=== PATIENT | male | born 1960 | race Caucasian/White ===

== ENCOUNTER → 2018-06-30 00:42 | Outpatient (CLI) | payer BC, SELFPAY ==
[2018-06-30 10:35] LABS: Abs Immature Grans 0.02 k/cumm (0.0-0.09); Absolute Basophil Count 0.02 k/cumm (0.0-0.2); Absolute Eosinophil Count 0.08 k/cumm (0.0-0.7); Absolute Lymphocyte Count 1.47 k/cumm (1.2-3.4); Absolute Monocyte Count 0.74 k/cumm (0.11-0.7); Absolute Neutrophil Count 3.82 k/cumm (1.2-6.7); Basophils % 0.3; Eosinophils % 1.3; HCT 46.7 % (40.0-50.0); Immature Grans % 0.3; Lymphocytes % 23.9; Mean Corp. HGB Concentration 34.3 g/dL (32.0-36.0); Mean Corpuscular Hemoglobin 29.6 pg (27.0-33.0); Mean Corpuscular Volume 86.5 fL (80-95); Mean Platelet Volume 10.8 fL (8.0-11.0); Neutrophils % 62.2; Platelet Count 159 x1000/uL (130-400); White Blood Cell Count 6.15 k/cumm (4.4-10.8)
[2018-06-30 10:54] LABS: Bilirubin Negative (Negative); Blood Negative (Negative); Clarity Clear; Glucose Negative (Negative); Ketones Negative (Negative); Leukocyte Esterase Negative (Negative); Nitrite Negative (Negative); Specific Gravity 1.025 (1.005-1.025); Urobilinogen 0.2 EU/dL (Up TO 0.2); pH 5.5 (5-8)
[2018-06-30 10:57] LABS: ALT 33 U/L (12-78); Albumin 4.1 g/dL (3.4-5.0); Alkaline Phosphatase 75 U/L (46-116); Anion Gap 13.2 mmol/L (3-11); BUN 19 mg/dL (7-18); Bilirubin, Total 0.5 mg/dL (0.2-1.0); CO2 22.8 mmol/L (21.0-32.0); CREATININE 1.35 mg/dL (0.70-1.30); Calcium 8.5 mg/dL (8.5-10.1); Chloride 106 mmol/L (98-107); Estimated GFR 53.91 (mL/min/1.73m2); Glucose 101 mg/dL (70-100); Potassium 3.8 mmol/L (3.5-5.1); Sodium 142 mmol/L (136-145); Total Protein 7.5 g/dL (6.4-8.2)
[2018-06-30 11:44] LABS: AST < 5 U/L (15-37)
[2018-07-03 10:48] LABS: PSA, Screening 1.4 ng/ml (0-4.5)
== END ==
PROVIDERS: PCP Family Medicine; Visit Provider Family Medicine
DX: M54.5 Low back pain (principal); G89.29 Other chronic pain; Z12.5 Encounter for screening for malignant neoplasm of prostate
CPT/HCPCS: 80053; 84153; 81003; 85025

== ENCOUNTER 2018-09-28 07:33 | Day surgery (SDC) | payer BC, SELFPAY ==
[2018-09-28 07:40] VITALS: BP 130/80; PULSE 78; RESP 16; TEMP 37; O2SAT 95
[2018-09-28] MEDS: Lactated Ringers 1,000 ML 30 ML IV (08:12)
--- NOTE | 2018-09-28 09:07 | W.COLOREPORT ---
Date of service: 09/28/18 Time of Service: 09:07 Colonoscopy Report Date of procedure: 09/28/18 Pre-op diagnosis general: Personal history of colon polyps Post-op diagnosis procedure note: other Procedure: Colonoscopy to the cecum with biopsy by cold forceps Surgeon: Sarath Oseguera Anesthesia proc note operative: MAC (Diane Lloyd CRNA; ASA 2 Mallampati class II) Estimated blood loss (mL): 1 Pathology: other (Rectal polyp) Complications: None Disposition: same day Indications: 58-year-old male presenting for colorectal cancer screening by colonoscopy. He has a personal history of colon polyps with a tubular adenoma found in 2008, and a family history of colorectal cancer with his father recently diagnosed with colon cancer. The colonoscopy procedure is been reviewed with him, and the risks of the procedure have been discussed with him. All his questions been answered to his satisfaction. Consent has been obtained to proceed with colonoscopy. Prep: Miralax/Dulcolax (Prep quality excellent) Procedure Start Time: 09:11 Procedure End Time: :28 Retraction Time: 12 min Findings: In examining the colon from cecum to rectum, 1 polyp was found in the rectum and removed by cold biopsy in the colon.. No other abnormalities were noted of the colon or rectum. Procedure Description: The patient was seen in the day surgery waiting area. His identification was confirmed, and procedure check. He was then brought to the procedure room. Monitoring for telemetry, blood pressure, oxygen saturation, and end tidal CO2 monitoring were applied. An appropriate time out was performed to confirm, identification, allergies, medication, procedure, was performed. Sedation was titrated for affect by the CUSHION SPRING ASSEMBLER; Once adequate sedation was achieved, I performed a inspection of the external perineum, and a digitial rectal examination. No significant external abnormalities were noted. On digital rectal examination, there was no blood, no masses, good rectal tone, and a normal prostate. I advanced the colonoscope from the anus to the cecum under direct visualization. The cecum was identified by the ileal-cecal valve, and the appendiceal orifice. The scope was then withdrawn in circumferential manner from the cecum to the rectum. No abnormalites were noted in the colon. The scope was then withdrawn into the rectum, and retroflexed. One polyp was identified in the rectum, and subsequently removed by cold biopsy forceps is approximately less than 1 cm in greatest diameter. No abnormalities were noted of the anorectal junction. The scope was then withdrawn, terminating the procedure. There were no complications during the procedure, and the patient tolerated the procedure well. He was returned to the day surgery recovery area in good condition. Plan: We will await pathology before making further recommendations.
--- NOTE | 2018-09-28 09:24 | BOWEL_PTH ---
PATIENT: Hitesh Iyer LOC: [facility] U#:[id number] AGE/SX: 58/M ROOM: RE09/28/[address]: Sarath Oseguera DO : 1960 BED: DIS: 09/28/2018 SPEC #: [id number] RECD: 09/28/18 12:20 STATUS: YAKOV RE #: [id number] PILI: 09/28/18 09:[address]: Sarath Oseguera DEPT: Surgical Specimen RECD BY: Mary Alexander ENTERED: 09/28/18 12:21 SP TYPE: Bowel OTHR DR: Forrest Hinson MD Tissues: 1 - BIOPSY BOWEL Procedures: GROSS AND MICRO LEVEL 4 Comments: [id number]
--- NOTE | 2018-09-28 09:44 | PDOC.DSDIS_ITS ---
Discharge Plan Disposition Patient Disposition: HOME Condition: Good Discharge Details Reason For Visit: Colorectal cancer screening Attending Provider: Sarath Oseguera Primary Care Provider: Forrest Hinson Discharge Instructions Instructions: Colonoscopy (GEN) Activity:: Activity as Tolerated Diet:: As Tolerated Discharge Orders Discharge Orders: Discharge Order (Routine); Ordered 09/28/18 Ordered By: Sarath Oseguera DS: Diagnosis Discharge Diagnosis (1) Family history of colon cancer in father: Status: Chronic Asessment and Plan: Colonoscopy performed Colonoscopy Report Date of procedure: 09/28/18 Pre-op diagnosis general: Personal history of colon polyps Post-op diagnosis procedure note: other Procedure: Colonoscopy to the cecum with biopsy by cold forceps Surgeon: Sarath Oseguera Anesthesia proc note operative: MAC (Diane Lloyd CRNA; ASA 2 Mallampati class II) Estimated blood loss (mL): 1 Pathology: other (Rectal polyp) Complications: None Disposition: same day Indications: 58-year-old male presenting for colorectal cancer screening by colonoscopy. He has a personal history of colon polyps with a tubular adenoma found in 2008, and a family history of colorectal cancer with his father recently diagnosed with colon cancer. The colonoscopy procedure is been reviewed with him, and the risks of the procedure have been discussed with him. All his questions been answered to his satisfaction. Consent has been obtained to proceed with colonoscopy. Prep: Miralax/Dulcolax (Prep quality excellent) Procedure Start Time: 09:11 Procedure End Time: 09:28 Retraction Time: 12 min Findings: In examining the colon from cecum to rectum, 1 polyp was found in the rectum and removed by cold biopsy in the colon.. No other abnormalities were noted of the colon or rectum. Procedure Description: The patient was seen in the day surgery waiting area. His identification was confirmed, and procedure check. He was then brought to the procedure room. Monitoring for telemetry, blood pressure, oxygen saturation, and end tidal CO2 monitoring were applied. An appropriate time out was performed to confirm, identification, allergies, medication, procedure, was performed. Sedation was titrated for affect by the BRAND ACTIVATION MANAGER; Once adequate sedation was achieved, I performed a inspection of the external perineum, and a digitial rectal examination. No significant external abnormalities were noted. On digital rectal examination, there was no blood, no masses, good rectal tone, and a normal prostate. I advanced the colonoscope from the anus to the cecum under direct visualization. The cecum was identified by the ileal-cecal valve, and the appendiceal orifice. The scope was then withdrawn in circumferential manner from the cecum to the rectum. No abnormalites were noted in the colon. The scope was then withdrawn into the rectum, and retroflexed. One polyp was identified in the rectum, and subsequently removed by cold biopsy forceps is approximately less than 1 cm in greatest diameter. No abnormalities were noted of the anorectal junction. The scope was then withdrawn, terminating the procedure. There were no complications during the procedure, and the patient tolerated the procedure well. He was returned to the day surgery recovery area in good condition. Plan: We will await pathology before making further recommendations. (2) Personal history of colonic polyps: Status: Acute Asessment and Plan: Colonoscopy performed see above
[2018-09-28 10:05] VITALS: BP 113/68; PULSE 62; RESP 16; TEMP 36.4; O2SAT 98
== END 2018-09-28 11:12 | disposition home or self-care (01) ==
PROVIDERS: PCP Family Medicine; Visit Provider Surgery
PROC: 0DJD8ZZ Inspection of Lower Intestinal Tract, Via Natural or Artificial Opening Endoscopic (ICD-10-PCS; CPT 45378; principal; 2018-09-28 09:00)
DX: Z12.11 Encounter for screening for malignant neoplasm of colon (principal); Z86.010 Personal history of colon polyps; Z80.0 Family history of malignant neoplasm of digestive organs; G47.33 Obstructive sleep apnea (adult) (pediatric); K21.9 Gastro-esophageal reflux disease without esophagitis; D12.8 Benign neoplasm of rectum
CPT/HCPCS: 45380; 88305

== ENCOUNTER 2019-09-28 16:58 | Emergency (ER) | payer OTHER, SELFPAY ==
[2019-09-28] VITALS (9 sets, daily range): BP systolic 130–156; BP diastolic 64–83; PULSE 72–86; RESP 16–22; TEMP 36.7; O2SAT 94–98
--- NOTE | 2019-09-28 17:15 | ED.GENADUL_ITS ---
Discharge Plan Disposition Patient Disposition: HOME Condition: Fair Discharge Details Chief Complaint: GenMedical Clinical Impression: Bilateral edema of lower extremity Primary Care Provider: Forrest Hinson ED Provider: Carin Vargas Home Meds and New Rx's Prescriptions: No Action No Known Home Meds RF: 0 Discharge Instructions Instructions: Leg Edema (ED), DASH Eating Plan (ED) Additional Instructions: At this time, your labs are reassuring. Please encourage hydration with water. Dietary changes as discussed to help reduce salt intake. Attached is dietary s uggestions. Please follow-up with primary care for reevaluation at the end of the week for reevaluation. If you develop chest pain, difficulty breathing, leg pain or the new/worsening symptoms please seek care urgently once again. Elevation and compression hose will help with the swelling in your lower extremities. Referrals: Forrest Hinson [Primary Care Provider] - Discharge Data Discharge Date/Time-TO BE ENTERED AT DEPARTURE: 09/28/19 19:30 Medical Decision Making Patient is a 59 year old male presenting today with c/c of bilateral lower extremity edema. Has had this wax and wane over the past 3 weeks. 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 Has poor diet per his and his families report. Endorses large amount of sodium intake. States that for the past 3 weeks he has had edema at night in BLE with no pain. No calf pain. No fevers/chills. Denies SOB. Symptoms are quite vague. Story seems to change in treatment. However, the history of the lower extremity edema, which is the patient's primary complaint, remains consistent. States that he has applies pressure to the left anterior chest wall. However, he states that he has had this pain for several years. No pain with exertion. No pain with not applying pressure to this area. Also had one episode of lightheadedness earlier today when he had been sitting and watching TV for incident. A time instead of quickly. States that the symptoms completely resolved as soon as he sat down. On exam, he appears nontoxic. He is resting comfortably. Normal respiratory and cardiac exam. 2+ pulses. He does have some mild edema in his lower extremities. This is nonpitting. No posterior calf pain, negative Homans sign. No pain to palpation elsewhere about the legs. No skin changes. With the patient is a complaints that seem to wax and wane, I feel that EKG, labs and chest x-ray are appropriate. EKG was reviewed by Dr. Castro. Patient's only normal sinus rhythm with a rate is 79 with no acute ischemic changes noted. Chest x-ray reviewed by radiologist: FINDINGS: Lungs: No consolidation. Pleural space: No pleural effusion. No pneumothorax. Heart/Mediastinum: No cardiomegaly. Bones/joints: No acute fracture. IMPRESSION: No acute cardiopulmonary pathology. Labs reveal normal CBC, d-dimer within normal limits, electrolytes are normal. Creatinine is slightly elevated 1.31, he has been elevated like this historically. TSH is slightly elevated at 5.84. Free T4 is 0.76. As the symptoms have been going on for the past 3 weeks, do not feel that repeat troponin is necessary at this time. His chest pain is only with palpation and story is not suggestive of ACS. However, talking more with the family and the patient, since that he has made lifestyle changes in the past year that may be contributing to his lower extremity edema and we discussed dietary changes. Adv ise close follow-up with primary care. He was given strict return precautions. All his questions and concerns were addressed and he is in agreement with this plan. HPI General Mode of arrival: ambulatory . Date/Time Provider Initiated Documentation: 09/28/19 17:04 . Limitations to Documentation: no limitations . Information obtained by: patient and RN notes reviewed . HPI Narrative: Patient is 59-year-old male presents today with fairly vague complaints. Initially, he was endorsing bilateral lower extremity edema that is been going on for the past 3 weeks. States that he noticed the swelling is increased at night and improves after having his legs elevated. Is also endorsing intermittent shortness of breath but is unable to correlate this with anything in particular. He is unclear if this associates with food. Does not believe that associates with exertion. Also endorses some chest discomfort but feels that this is more with palpation. Again, patient is unclear as to what may cause exacerbating symptoms. No cough. No fevers or chills. Denies any abdominal pain. No nausea or vomiting. States he is gained approximately 25 pounds in the past year and associates this with being more sedentary. Patient's history of GABRIELA, obesity, GERD. No history of colon cancer, multiple myeloma. Maternal grandfather had [place]. The patient is back. No change in urinary or bowel habits. No recent travel. Is not currently endorsing symptoms. States he came in today because slightly dizzy after he stood up from watching TV afternoon. Goes on to describe his dizziness as lightheadedness which resolved after sitting back down. Related Data Home Medications Medication Instructions Recorded Confirmed Unknown [No Known Home Meds] 09/28/19 09/28/19 Allergies Allergy/AdvReac Type Severity Reaction Status Date / Time bupropion Allergy Anaphylaxsi Verified 09/28/19 17:07 s General Stated Complaint: GenMedical CONOR: 3 Review of Systems Constitutional Constitutional: Reports as per HPI, Denies chills, Denies fever(s), Denies headache(s), Denies lethargy and Denies poor appetite Eyes Eyes: Denies change in vision ENT Ears, Nose, Mouth, and Throat: Denies dizziness and Denies headache(s) Cardiovascular Cardiovascular: Reports as per HPI, Reports chest pain (pain only with palpation), Denies chest pain at rest, Denies chest pain with activity, Denies irregular heart rhythm, Reports leg edema, Reports lightheadedness (one episode of lightheadedness after sitting for long period of time), Denies radiating jaw, neck or arm pain, Denies palpitations, Denies dyspnea and Denies dyspnea on exertion Respiratory Respiratory: Reports as per HPI, Denies chest congestion, Denies cough, Denies pain on inspiration, Denies pain with cough, Denies dyspnea, Denies dyspnea on exertion and Denies wheezing Gastrointestinal Gastrointestinal: Reports as per HPI, Denies abdominal pain, Denies diarrhea, Denies nausea and Denies vomiting Genitourinary Genitourinary: Denies system reviewed and no additional complaints, except as docu (denies change in urinary habits) Musculoskeletal Musculoskeletal: Reports as per HPI and Denies back pain Integumentary/Breasts Skin/Breast: Reports as per HPI and Denies rash Neurologic Neurologic: Reports as per HPI, Denies dizziness and Denies headache(s) Endocrine Endocrine: Denies palpitations Allergic/Immunologic Allergic/Immunologic: Denies wheezing [facility] Medical History Adenomatous colon polyp (Acute 08/18/09) Arthritis of facet joint of lumbar spine (Acute) Chronic low back pain (Acute) Family history of colon cancer (Acute) Father, age 81 GERD (gastroesophageal reflux disease) (Chronic) History of smoking (Acute) Non-neoplastic nevus of skin (Acute) Obesity (Chronic) GABRIELA (obstructive sleep apnea) (Chronic) Rosacea (Acute) Surgical History H/O colonoscopy (Resolved) dr villalobos tubular adenoma repeat five years Social History Smoking/Tobacco Use Status: Former Tobacco Use Alcohol Intake: never Drug use: Occasionally Substance use type: marijuana Do you feel safe at home: Yes Do you feel safe in your relationship?: Yes Exam Const General: cooperative, healthy appearing, comfortable, no acute distress and well developed Nutritional Appearance: well nourished and overweight Orientation: alert, awake and oriented x3 HENMT Head: normal to inspection Ears: hearing grossly normal bilaterally Mouth: moist mucous membranes Chest Chest: normal inspection of the chest, normal palpation of entire chest wall and no crepitus Resp Effort & Inspection: normal respiratory effort, able to speak in complete sentences and no respiratory distress Auscultation: clear to auscultation bilaterally, no rales, no rhonchi and no wheezes Cardio Rate: regular rate Rhythm: regular rhythm Heart Sounds: S1 normal and S2 normal GI Inspection: normal to inspection, no edema and non-distended Palpation: soft, no hepatosplenomegaly, not firm, no guarding, not rigid and nontender Auscultation: normal bowel sounds Back/Spine/Pelvis Back: no CVA tenderness Thoracic/Lumbar Spine: thoracic and lumbar spine normal to inspection Skin General skin exam: no rashes or lesions noted Trauma: no lacerations or abrasions Neuro General: alert, awake and oriented x3 Cognition: normal cognition Speech: speech normal Gait: normal gait Extrem General: normal to inspection, normal capillary refill, no calf tenderness, normal gait, no calf tenderness bilaterally, pedal edema bilaterally (1+ nonpitting) and other (2+ distal pulses in all extremities) Psych Appearance: grossly normal and well kempt Mental Status: mental status grossly normal Speech and Movement: speech and movement normal Course Vital Signs Vital signs: Vital Signs Temperature 36.7 C 09/28/19 17:01 Pulse 78 09/28/19 17:01 Respiratory Rate 20 09/28/19 17:01 Blood Pressure 156/81 H 09/28/19 17:01 Pulse Oximetry 98 09/28/19 17:01 Temperature 36.7 C 09/28/19 17:01 Temperature Source Temporal Artery Scan 09/28/19 17:01 Pulse 78 09/28/19 17:01 Respiratory Rate 20 09/28/19 17:01 Respiratory Effort Non-Labored 09/28/19 17:05 Blood Pressure 156/81 H 09/28/19 17:01 Blood Pressure Position Supine 09/28/19 17:01 Pulse Oximetry 98 09/28/19 17:01 Oxygen Delivery Method Room Air 09/28/19 17:01 Oxygen Flow Rate 0 09/28/19 17:01 Pain Level 0 09/28/19 17:01
--- NOTE | 2019-09-28 17:34 | DI.RAD_ITS ---
EXAM: XR CHEST 2V PA LATERAL CLINICAL HISTORY: SOB TECHNIQUE: 2D digital imaging was performed. COMPARISON: CHEST 2 VIEWS PA,LAT from 12/24/2013 FINDINGS: The cardiac and mediastinal contours have a normal appearance. The lungs are well inflated and clear . No infiltrate, effusion or pneumothorax is seen. No spine or rib fracture is identified. IMPRESSION: Negative chest x-ray.
[2019-09-28 17:37] LABS: Abs Immature Grans 0.03 k/cumm (0.0-0.09); Absolute Basophil Count 0.02 k/cumm (0.0-0.2); Absolute Eosinophil Count 0.09 k/cumm (0.0-0.7); Absolute Monocyte Count 0.57 k/cumm (0.11-0.7); Absolute Neutrophil Count 4.36 k/cumm (1.2-6.7); Basophils % 0.3; Eosinophils % 1.3; HCT 46.9 % (40.0-50.0); HGB 15.9 g/dL (13.5-17.5); Immature Grans % 0.4; Mean Corp. HGB Concentration 33.9 g/dL (32.0-36.0); Mean Corpuscular Hemoglobin 29.6 pg (27.0-33.0); Mean Corpuscular Volume 87.3 fL (80-95); Mean Platelet Volume 10.2 fL (8.0-11.0); Monocytes % 8.5; Neutrophils % 65.5; Platelet Count 175 x1000/uL (130-400); RBC 5.37 m/cumm (4.50-6.00); White Blood Cell Count 6.67 k/cumm (4.4-10.8)
[2019-09-28 17:52] LABS: PTT Activated 26.1 sec (21.0-31.4); Prothrombin Time 9.9 sec (9.3-11.0)
[2019-09-28 17:57] LABS: ALT 49 U/L (16-63); AST 26 U/L (15-37); Albumin 3.8 g/dL (3.4-5.0); Alkaline Phosphatase 71 U/L (46-116); Anion Gap 7.5 mmol/L (3-11); BUN 18 mg/dL (7-18); Bilirubin, Total 0.5 mg/dL (0.2-1.0); CO2 29.5 mmol/L (21.0-32.0); CREATININE 1.31 mg/dL (0.70-1.30); Calcium 8.4 mg/dL (8.5-10.1); Chloride 105 mmol/L (98-107); Estimated GFR 55.63 (mL/min/1.73m2); Glucose 106 mg/dL (70-100); Magnesium 1.8 mg/dL (1.8-2.4); NT-proBNP 39 pg/mL; Potassium 3.8 mmol/L (3.5-5.1); Sodium 142 mmol/L (136-145); TSH (W/Ref FT4) 5.84 uIU/mL (0.36-3.74); Total Protein 7.2 g/dL (6.4-8.2)
[2019-09-28 17:58] LABS: Troponin I < 0.05 ng/mL (0.00-0.06)
[2019-09-28 18:08] LABS: D-Dimer 369 ng/mlFEU (<500)
[2019-09-28 18:14] LABS: FREE T4 0.76 ng/dL (0.76-1.46)
--- NOTE | 2019-09-28 18:26 | DI.VRAD_ITS ---
PROCEDURE INFORMATION: Exam: XR Chest, 2 Views Exam date and time: 09/28/2019 17:35 Clinical history: 59 years old, male; Shortness of breath; Patient HX: SOB TECHNIQUE: Imaging protocol: XR of the chest Views: 2 views. COMPARISON: CR CHEST 2 VIEWS PA,LAT 12/24/2013 18:47 FINDINGS: Lungs: No consolidation. Pleural space: No pleural effusion. No pneumothorax. Heart/Mediastinum: No cardiomegaly. Bones/joints: No acute fracture. IMPRESSION: No acute cardiopulmonary pathology. Dictated and Authenticated by: Jeni Leger MD. Ordering:JESS Del Rosario MD
== END 2019-09-28 19:30 | disposition home or self-care (01) ==
PROVIDERS: Emergency Provider Physician Assistant; PCP Family Medicine
DX: R60.0 Localized edema (principal); R63.5 Abnormal weight gain
CPT/HCPCS: 80053; 93005; 99283; 71046; 83735; 83880; 84439; 84443; 84484; 85025; 85379; 85610; 85730; 93010

== ENCOUNTER 2021-01-26 21:32 | Outpatient (REF) | payer OTHER, SELFPAY ==
[2021-01-26 22:01] LABS: Hemoglobin A1C 5.9 % (<5.7)
[2021-01-26 22:07] LABS: BUN 16 mg/dL (7-18); CREATININE 1.3 mg/dL (0.70-1.30); Calcium 8.8 mg/dL (8.5-10.1); Chloride 106 mmol/L (98-107); Estimated GFR 55.94 (mL/min/1.73m2); Glucose 128 mg/dL (74-106); Potassium 3.7 mmol/L (3.5-5.1); Sodium 142 mmol/L (136-145)
[2021-01-26 22:27] LABS: FREE T4 0.76 ng/dL (0.76-1.46)
== END 2021-01-26 21:33 | disposition home or self-care (01) ==
LOC: LBN 21:32
PROVIDERS: Family Medicine; PCP Family Medicine; Visit Provider Family Medicine
DX: R79.89 Other specified abnormal findings of blood chemistry (principal); R73.9 Hyperglycemia, unspecified
CPT/HCPCS: 80048; 83036; 84439; 84443

== ENCOUNTER 2021-04-29 19:49 | Outpatient (REF) | payer BC, SELFPAY ==
[2021-04-29 20:44] LABS: Abs Immature Grans 0.03 10^3/uL (0.0-0.06); Absolute Basophil Count 0.03 10^3/uL (0.0-0.2); Absolute Lymphocyte Count 1.85 10^3/uL (1.2-3.4); Absolute Neutrophil Count 3.65 10^3/uL (1.2-6.7); Basophils % 0.5; Eosinophils % 1.5; HCT 47.7 % (40.0-50.0); HGB 15.9 g/dL (13.5-17.5); Immature Grans % 0.5; Lymphocytes % 28.6; MCH 29.4 pg (27.0-33.0); MCHC 33.3 % (32.0-36.0); MCV 88.3 fL (80-95); MPV 10.7 fL (8.0-11.0); Monocytes % 12.4; Neutrophils % 56.5; Nucleated RBC 0 %; Platelet Count 179 10^3/uL (130-400); RDW 13.6 % (11.8-14.1); RDW-SD 43.8 fL; WBC 6.46 10^3/uL (4.4-10.8)
[2021-04-29 20:52] LABS: Anion Gap 6.5 mmol/L (3-11); BUN 15 mg/dL (7-18); CO2 30.5 mmol/L (21.0-32.0); CREATININE 1.4 mg/dL (0.70-1.30); Calcium 8.4 mg/dL (8.5-10.1); Chloride 106 mmol/L (98-107); Estimated GFR 51.18 (mL/min/1.73m2); Glucose 96 mg/dL (74-106); Potassium 4.2 mmol/L (3.5-5.1); Sodium 143 mmol/L (136-145)
== END 2021-04-29 19:50 | disposition home or self-care (01) ==
LOC: NCHCN 19:49
PROVIDERS: PCP Nurse Practitioner Family; Visit Provider Physician Assistant Medical
DX: R10.32 Left lower quadrant pain (principal); R82.998 Other abnormal findings in urine
CPT/HCPCS: 80048; 87077; 85025; 87086

== ENCOUNTER 2021-11-01 23:51 | Emergency (ER) | payer BC, SELFPAY ==
[2021-11-01 23:56] VITALS: BP 141/87; PULSE 87; RESP 18; TEMP 36.5; O2SAT 99
--- NOTE | 2021-11-02 | DI.CT_ITS ---
Exam(s) CT RENAL COLIC WO EXAM: CT RENAL COLIC WO CLINICAL HISTORY: left flank pain, r/o stone. TECHNIQUE: Imaging Protocol: Axial computed tomography images with coronal and sagittal reformatted images were created and reviewed. COMPARISON: No exams were available for comparison FINDINGS: ABDOMEN: Lung Bases: Normal where visualized. Liver: Normal density. No measurable mass. Gallbladder and biliary tract: No radiodense calculus or biliary ductal dilation. Pancreas: Normal density, no abnormal calcifications or inflammatory process. Spleen: Normal. Kidneys: Normal size, contour and axis.2 mm density in the left renal pelvis. This may represent a n onobstructing stone or vascular calcification. No masses seen. Adrenal glands: No mass is seen. Lymph nodes: Within normal limits. Abdominal Aorta: Abdominal portion non-dilated. Atherosclerosis. PELVIS: Bladder:Symmetric distention, no gross wall thickening. Bowel: No obstruction or bowel wall thickening. No evidence of appendicitis. Peritoneal cavity: No ascites, collection or mesenteric inflammatory response. No free air. Reproductive organs: Within normal limits. Bones: Within normal limits. Degenerative changes of the lumbar spine resulting in moderate to severe central spinal canal stenosis at L4-L5. Soft Tissues: Small fat containing bilateral inguinal hernia. IMPRESSION: No evidence of hydronephrosis or ureterolithiasis. RADIATION DOSE DELIVERED: 1,231.04mGy.cm Total DLP DATA REPOSITORY: All CT scans at this facility are submitted to the National Radiology Data Registry (NRDR) Dose Index Registry (DIR) with the [employer] (A[employer]). RADIATION OPTIMIZATION: All CT scans at this facility use at least one of these dose optimization te chniques: automated exposure control; mA and/or kV adjustment per patient size (includes targeted exa ms where dose is matched to clinical indication); or iterative reconstruction.
--- NOTE | 2021-11-02 00:03 | W.ED.GENAD ---
Discharge Plan Disposition Patient Disposition: HOME Condition: Good Discharge Details Clinical Impression: Acute left flank pain Primary Care Provider: Elio Salas ED Provider: Cirilo Malave Home Meds and New Rx's Prescriptions: No Action No Known Home Meds RF: 0 Discharge Instructions Instructions: Flank Pain (ED) Additional Instructions: At this time your work-up shows no significant abnormalities. There is some mild irritation in your intestines but no evidence of colitis or diverticulitis. Your urinalysis which suggests that you may have recently passed a kidney stone. I suspect this was the cause of your symptoms. Stay well-hydrated drink plenty of fluids. Take Tylenol and Aleve as needed for pain. If you notice any worsening of your symptoms, or any new symptoms such as vomiting, diarrhea, fever, chills, shortness of breath, chest pain, numbness, weakness, or fainting , please return immediately to the emergency department for reevaluation. Please follow up with your primary care provider as soon as possible for reassessment and reevaluation. As always, it was a pleasure participating in your medical care today. Referrals: Elio Salas, TRACTOR SWEEPER OPERATOR [Primary Care Provider] - Medical Decision Making This is a pleasant 61-year-old male with a past medical history of hypertension, mild obesity, arthritis, previous ruptured appendicitis in the distant past, who presents today for left flank pain. Patient states that the symptoms began earlier this morning, they were mild in nature and have gradually increased throughout the day. Symptoms are constant and not undulating. Radiation from the left flank transitions down to the left groin area. No genital, scrotal, testicular or penile tenderness. He denies any fever, chills, vomiting, or diarrhea. He denies any pain like this before. He has taken 3 naproxen prior to arrival and this only slightly improved his symptoms. He also notes that the pain began to improve just prior to him coming to the emergency department. He denies any urinary complaints otherwise. He denies any hematuria, dysuria or urinary frequency. He denies known history of kidney stones. Physical exam demonstrates minimal/mild left CVA tenderness. No groin, testicular or genital tenderness. Symptoms are concerning for urolithiasis. We will get a CT scan, evaluate his urine, treat his pain, monitor closely and reassess. 1:34 AM Laboratory work-up is returned, on reassessment patient's pain is nearly completely resolved after Tylenol. He feels well and would like to go home. CBC shows no abnormalities whatsoever, renal function is stable and unchanged compared to prior labs. Urinalysis shows moderate blood greater than 50 RBCs. No evidence of WBCs or infection. CT scan is negative for evidence of kidney stone, however with that urinalysis and the patient's clinical history I suspect he likely had a kidney stone that he passed just prior to arrival. CT scan does show evidence of mild enteritis, however the patient has no abdominal tenderness whatsoever, no history of vomiting or diarrhea. Symptoms are notably clinically inconsistent with acute mesenteric ischemia, or other concerning intra-abdominal abnormality that would be life-threatening. At this time with resolution of the patient pain, and the reassuring work-up I do feel that the patient can be discharged home. Discussed red flags for which to return. I have extensively reviewed the treatment plan and discharge instructions with the patient. I have addressed all patient concerns at this time. The patient was made aware of what symptoms to monitor for that would warrant a return to the emergency department. Discussed the plan with the patient, they demonstrate verbal understanding and agreement with our assessment and plan at this time. The documentation in this chart was dictated using [employer] dictation software. Please excuse any dictation errors. FINDINGS: Lungs: Lung bases are clear. Liver: Unremarkable noncontrast liver imaging. Gallbladder and bile ducts: Normal. No calcified stones. No ductal dilation. Pancreas: Normal. No ductal dilation. Spleen: Normal. No splenomegaly. Adrenal glands: Normal. No mass. Kidneys and ureters: Negative for hydronephrosis. Nondilated ureters. No stones. Stomach and bowel: Unremarkable stomach. Nondilated small bowel. Fat planes around loops of small bowel are indistinct. There are no inflammatory changes observed around the colon. Appendix: No evidence of appendicitis. The appendix is not observed. Surgical material noted at the base the cecum. Intraperitoneal space: Mild mesenteric fat stranding. No significant free fluid. Negative for free air. Negative for abscess. Vasculature: Unremarkable. No abdominal aortic aneurysm. Lymph nodes: Mesenteric lymph nodes are mildly prominent. Negative for pathologic lymphadenopathy. Urinary bladder: Unremarkable as visualized. Reproductive: Unremarkable as visualized. Bones/joints: Severe facet arthropathy noted at L4-L5 and L5-S1 on the right. Degenerative disc changes also noted, greatest at L5-S1. Moderate-severe spinal canal stenosis noted at L4-L5. Soft tissues: Unremarkable. IMPRESSION: 1. Negative for hydronephrosis or urolithiasis. 2. Findings of enteritis with reactive mesenteric inflammation. Thank you for allowing us to participate in the care of your patient. Dictated and Authenticated by: Brayan Burns MD 11/02/2021 1:27 AM Eastern Time ([place] & [place]) HPI General Date/Time Provider Initiated Documentation: 11/01/21 23:54. HPI Narrative: This is a pleasant 61-year-old male with a past medical history of hypertension, mild obesity, arthritis, previous ruptured appendicitis in the distant past, who presents today for left flank pain. Patient states that the symptoms began earlier this morning, they were mild in nature and have gradually increased throughout the day. Symptoms are constant and not undulating. Radiation from the left flank transitions down to the left groin area. No genital, scrotal, testicular or penile tenderness. He denies any fever, chills, vomiting, or diarrhea. He denies any pain like this before. He has taken 3 naproxen prior to arrival and this only slightly improved his symptoms. He denies any urinary complaints otherwise. He denies any hematuria, dysuria or urinary frequency. He denies known history of kidney stones. Related Data Home Medications Medication Instructions Recorded Confirmed Unknown [No Known Home Meds] 01/26/21 01/26/21 Allergies Allergy/AdvReac Type Severity Reaction Status Date / Time bupropion Allergy Anaphylaxsi Verified 04/21/21 15:02 s General Stated Complaint: FlankPain CONOR: 4 Review of Systems All systems reviewed & are unremarkable except as noted in HPI and below PFS Active Problem List Elevated TSH (Acute) HTN (hypertension) (Chronic) Edema (Acute) Tubular adenoma of rectum (Acute ~09/28/18) Personal history of colonic polyps (Acute) Encounter for screening colonoscopy (Acute) Rosacea (Chronic 10/17/16) Polyp of colon (Chronic 08/18/09) Obstructive sleep apnea syndrome (Chronic) Obesity (Chronic) Nevus, non-neoplastic (Chronic) Gastroesophageal reflux disease (Chronic) Family history of colon cancer in father (Chronic 06/20/18) Chronic low back pain without sciatica (Chronic 06/20/18) Arthritis of facet joint of lumbar spine (Chronic 06/29/18) Medical History Adenomatous colon polyp (08/18/09) Arthritis of facet joint of lumbar spine Chronic low back pain Family history of colon cancer Father, age 81 GERD (gastroesophageal reflux disease) History of smoking Non-neoplastic nevus of skin Obesity GABRIELA (obstructive sleep apnea) Rosacea Smoker quit 3 years ago. Surgical History H/O colonoscopy dr villalobos tubular adenoma repeat five years Family History Mother , age 72 Myeloma Father Colon cancer Alcohol abuse Sister Alcohol abuse Melanoma Substance abuse Sister Heart disease Son No problems noted. Son Substance abuse Daughter Depression Social History Smoking/Tobacco Use Status: Current every day Tobacco: How many years used: 25 Second Hand Exposure: Yes Smoking risk assessment performed?: Yes Alcohol Intake: current Alcohol Intake frequency: holidays/special occasions only Alcohol type: hard liquor Drug use: Occasionally Substance use type: marijuana Household members: spouse and children Do you need help understanding health information?: Rarely Pets and animals: Yes Pets and animals: cat(s), dog(s) and guinea pig(s) Sexually active: No Do you think of yourself as: straight/heterosexual Current gender identity: male What is your relationship status?: How often do you talk on the phone with friends or family?: three or more times per week How often do you get together with friends or relatives?: twice per week How often do you attend advent or roman catholic services?: 1-3 times per year Do you belong to any clubs or organized social groups?: no Panel score (0-1 are the most socially isolated patients): 2 What type of physical activity do you participate in: walking Duration: 15-30 minutes/day Frequency: 1-2 times per week Penelope/Buddhism: No preference Special penelope needs: No Seatbelt use: always Drive intox or ride w/intox 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 3.ENT: Atraumatic external nose and ears. Moist MM. Neck: Symmetric, trachea midline, No thyromegaly. 4.CVS: +S1/S2, No murmurs or gallops. Peripheral pulses 2+ and equal in all extremities. Brisk capillary refill in all extremities. 5.RESP: Unlabored respiratory effort. Clear to auscultation bilaterally. No wheezes rales or rhonchi 6.GI: Soft, Nontender/Nondistended, No hepatosplenomegaly. No guarding or rebound. Minimal left CVA tenderness. No pain at McBurney's point, negative Ponce sign. No left or right inguinal canal tenderness. Genital exam demonstrates unremarkable genitalia, no testicular tenderness. Normal cremasteric reflex. No penile tenderness. 7.MSK: Normocephalic/Atraumatic, Extremities w/o deformity or ttp No cyanosis or clubbing, Normal movement of all extremities 8.Skin: Warm, Dry. No rashes or lesions. 9.Neuro: histologic aide II-XII grossly intact. Sensation grossly intact, no focal neurologic deficits. 10.Psych: (AAO) x3. Appropriate mood and affect Course Vital Signs Vital signs: Vital Signs Temperature 36.5 C 11/01/21 23:56 Pulse 87 11/01/21 23:56 Respiratory Rate 18 11/01/21 23:56 Blood Pressure 141/87 H 11/01/21 23:56 Pulse Oximetry 99 11/01/21 23:56 Temperature 36.5 C 11/01/21 23:56 Temperature Source Tympanic 11/01/21 23:56 Pulse 87 11/01/21 23:56 Respiratory Rate 18 11/01/21 23:56 Blood Pressure 141/87 H 11/01/21 23:56 Blood Pressure Position Supine 11/01/21 23:56 Pulse Oximetry 99 11/01/21 23:56 Oxygen Delivery Method Room Air 11/01/21 23:56 Oxygen Flow Rate 0 11/01/21 23:56 Pain Level 5 12 23:56
[2021-11-02] MEDS: Normal Saline 1,000 ML 1000 ML IV (00:08)
[2021-11-02 00:11] LABS: Abs Immature Grans 0.02 10^3/uL (0.0-0.06); Absolute Basophil Count 0.04 10^3/uL (0.0-0.2); Absolute Eosinophil Count 0.12 10^3/uL (0.0-0.7); Absolute Lymphocyte Count 1.52 10^3/uL (1.2-3.4); Absolute Monocyte Count 0.53 10^3/uL (0.1-0.8); Absolute Neutrophil Count 5.68 10^3/uL (1.2-6.7); Basophils % 0.5; Eosinophils % 1.5; HGB 15.6 g/dL (13.5-17.5); Immature Grans % 0.3; Lymphocytes % 19.2; MCH 29.1 pg (27.0-33.0); MCHC 33.2 % (32.0-36.0); MCV 87.5 fL (80-95); Monocytes % 6.7; Neutrophils % 71.8; Nucleated RBC 0 %; Platelet Count 160 10^3/uL (130-400); RBC 5.37 10^6/uL (4.36-5.78); RDW 13.2 % (11.8-14.1); RDW-SD 42.9 fL; WBC 7.91 10^3/uL (4.4-10.8)
[2021-11-02 00:25] LABS: ALT 30 U/L (16-63); Alkaline Phosphatase 77 U/L (46-116); Anion Gap 7.5 mmol/L (3-11); BUN 21 mg/dL (7-18); Bilirubin, Total 0.4 mg/dL (0.2-1.0); CO2 28.5 mmol/L (21.0-32.0); CREATININE 1.5 mg/dL (0.70-1.30); Calcium 7.8 mg/dL (8.5-10.1); Chloride 106 mmol/L (98-107); Estimated GFR 47.27 (mL/min/1.73m2); Glucose 156 mg/dL (74-106); Potassium 3.6 mmol/L (3.5-5.1); Sodium 142 mmol/L (136-145); Total Protein 7.2 g/dL (6.4-8.2)
[2021-11-02] MEDS: ACETAMINOPHEN 1,000 MG/100 ML BTL 400 MG IVPB (00:30)
[2021-11-02 00:48] LABS: AST 26 U/L (15-37)
[2021-11-02 01:15] LABS: Bilirubin Negative (Negative); Blood Moderate (Negative); Clarity Clear (Clear); Glucose Negative (Negative); Ketones Negative (Negative); Leukocyte Esterase Negative (Negative); Nitrite Negative (Negative); Specific Gravity >= 1.030 (1.005-1.025); Urobilinogen 0.2 EU/dL (Up TO 0.2)
[2021-11-02 01:20] LABS: Bacteria Rare HPF (Negative); C & S Indicated? No; Casts Negative LPF (Negative); Crystals Negative HPF (Negative); Epithelial Cells Rare HPF (Negative); Mucus Negative (Negative); RBC >50 HPF (0-2); WBC 0-2 HPF (0-5)
--- NOTE | 2021-11-02 01:28 | DI.VRAD_ITS ---
PROCEDURE INFORMATION: Exam: CT Abdomen And Pelvis Without Contrast Exam date and time: 11/02/2021 12:03 AM Age: 61 years old Clinical indication: Patient HX: L flank pain, R/O stones; Additional info: L flank pain since yesterday afternoon, increasing TECHNIQUE: Imaging protocol: Computed tomography of the abdomen and pelvis without contrast. Radiation optimization: All CT scans at this facility use at least one of these dose optimization techniques: automated exposure control; mA and/or kV adjustment per patient size (includes targeted exams where dose is matched to clinical indication); or iterative reconstruction. COMPARISON: CR XR CHEST 2V PA LATERAL 09/28/2019 5:33 PM FINDINGS: Lungs: Lung bases are clear. Liver: Unremarkable noncontrast liver imaging. Gallbladder and bile ducts: Normal. No calcified stones. No ductal dilation. Pancreas: Normal. No ductal dilation. Spleen: Normal. No splenomegaly. Adrenal glands: Normal. No mass. Kidneys and ureters: Negative for hydronephrosis. Nondilated ureters. No stones. Stomach and bowel: Unremarkable stomach. Nondilated small bowel. Fat planes around loops of small bowel are indistinct. There are no inflammatory changes observed around the colon. Appendix: No evidence of appendicitis. The appendix is not observed. Surgical material noted at the base the cecum. Intraperitoneal space: Mild mesenteric fat stranding. No significant free fluid. Negative for free air. Negative for abscess. Vasculature: Unremarkable. No abdominal aortic aneurysm. Lymph nodes: Mesenteric lymph nodes are mildly prominent. Negative for pathologic lymphadenopathy. Urinary bladder: Unremarkable as visualized. Reproductive: Unremarkable as visualized. Bones/joints: Severe facet arthropathy noted at L4-L5 and L5-S1 on the right. Degenerative disc changes also noted, greatest at L5-S1. Moderate-severe spinal canal stenosis noted at L4-L5. Soft tissues: Unremarkable. IMPRESSION: 1. Negative for hydronephrosis or urolithiasis. 2. Findings of enteritis with reactive mesenteric inflammation. Dictated and Authenticated by: Brayan Burns MD. Ordering:JOANNE Kerr MD
[2021-11-02 01:35] VITALS: BP 128/65; PULSE 67; RESP 18; O2SAT 98
== END 2021-11-02 01:36 | disposition home or self-care (01) ==
PROVIDERS: Emergency Provider Student in an Organized Health Care Education/Training Program; PCP Nurse Practitioner Family
DX: M54.59 Other low back pain (principal); R31.9 Hematuria, unspecified
CPT/HCPCS: 36415; 80053; 96361; 96374; 99284; 74176; 81003; 81015; 85025; 99285; J0131

== ENCOUNTER 2021-11-03 05:14 | Emergency (ER) | payer BC, SELFPAY ==
[2021-11-03] VITALS (15 sets, daily range): BP systolic 126–148; BP diastolic 67–84; PULSE 56–68; RESP 24; TEMP 35.9; O2SAT 92–98
--- NOTE | 2021-11-03 05:30 | DI.CT_ITS ---
Exam(s) CT ABDOMEN PELVIS CTA EXAM: CT ABDOMEN PELVIS CTA CLINICAL HISTORY: L flank pain, hematuria, r/o renal infarct/mes.isc. TECHNIQUE: Imaging Protocol: Axial CT angiography was performed with multi-slice acquisition and m ulti-planar and/or 3D reconstructions. CONTRAST MATERIAL: Intravenous: Omnipaque 350 Contrast volume:100 mL Oral: No COMPARISON: CT CT RENAL COLIC WO from 11/02/2021 FINDINGS: ABDOMEN AND PELVIS: Abdomen: Celiac axis/mesenteric arteries: No evidence of occlusion or significant stenosis. Renal Arteries: No evidence of occlusion or significant stenosis. There is a single renal artery perf using each kidney. Aorta: No evidence of occlusion or significant stenosis. No aneurysm or dissection. Mild atheroscler osis. Pelvis: Iliac Arteries: No evidence of occlusion or significant stenosis. Common Femoral Arteries: No evidence of occlusion or significant stenosis. ABDOMEN: Lung bases: Unremarkable. Liver: Normal density. No measurable mass. Portal, Superior Mesenteric, and Splenic Veins: Unremarkable. Gallbladder and Biliary Tract: No radiodense calculus or dilation. Pancreas: Normal density, no abnormal calcifications or inflammatory process. Spleen: Normal. Adrenals: No masses seen. Kidneys: Normal size, contour and axis. No radiodense stones or obstructive uropathy. There are few t iny hypodensities in the right kidney. They are too small for further characterization but likely re flect small cysts. Bowel: No obstruction or bowel wall thickening. No evidence of appendicitis. Peritoneal Cavity: No ascites, collection or mesenteric inflammatory response. No free air. Lymph Nodes: Within normal limits. Bones: Unremarkable. Soft Tissues: There are bilateral fat containing inguinal hernia. PELVIS: Bladder: Incompletely distended. There is thickening of the wall of the urinary bladder. This may be due to the underdistention but a cystitis cannot be excluded. There is a 2 mm calcification in the de pendent portion of the urinary bladder which may represent a recently passed stone. Reproductive Organs: Unremarkable as visualized. Lymph Nodes: Within normal limits. Bones: Within normal limits. IMPRESSION: 1. No evidence of arterial occlusion or stenosis in the abdomen or pelvis. 2. 2 mm calcification in the dependent portion of the urinary bladder which may represent a recently passed stone. 3. Urinary bladder wall thickening which may be due to underdistention. Cystitis cannot be excluded. RADIATION DOSE DELIVERED: 2,017.14mGy.cm Total DLP DATA REPOSITORY: All CT scans at this facility are submitted to the National Radiology Data Registry (NRDR) Dose Index Registry (DIR) with the [employer] (A[employer]). RADIATION OPTIMIZATION: All CT scans at this facility use at least one of these dose optimization te chniques: automated exposure control; mA and/or kV adjustment per patient size (includes targeted exa ms where dose is matched to clinical indication); or iterative reconstruction.
--- NOTE | 2021-11-03 05:34 | W.ED.GENAD ---
Discharge Plan Disposition Patient Disposition: HOME Condition: Good Discharge Details Clinical Impression: Kidney stone Primary Care Provider: Elio Salas ED Provider: Cirilo Jordan Home Meds and New Rx's Prescriptions: No Action No Known Home Meds RF: 0 Discharge Instructions Instructions: Kidney Stones (ED) Additional Instructions: At this time it appears that you have passed a very small kidney stone. There is concern that you may have had a small ureteral stricture. We will place a urology consult for follow-up on an outpatient basis. Please take Tylenol and Motrin as needed for pain. Drink plenty of fluids. If you notice any worsening of your symptoms, or any new symptoms such as vomiting, diarrhea, fever, chills, shortness of breath, chest pain, numbness, weakness, or fainting , please return immediately to the emergency department for reevaluation. Please follow up with your primary care provider as soon as possible for reassessment and reevaluation. As always, it was a pleasure participating in your medical care today. Referrals: Elio Salas, LADONNA [Primary Care Provider] - Valentino Burns MD [ [facility] STAFF PHYSICIAN] - Medical Decision Making This is a 61-year-old male with a past medical history of previous ruptured appendix, appendectomy, arthritis, GERD, obstructive sleep apnea, who presents today for abdominal pain. Patient was seen yesterday at which time he had mild left flank pain which was notably resolved by the time he actually arrived to the emergency department. Work-up demonstrated a noncontrast CT scan with no significant abnormalities with mild enteritis, he did have mild hematuria noted in UA. Labs are otherwise unremarkable. Patient's pain was essentially minimal upon his arrival to the ED, and it was gone at the time he left. He is discharged home in states that he did well throughout the day and had no significant pain during the morning afternoon or evening. However just 30 minutes prior to arrival here tonight 5:40 AM the patient had a return sudden onset severe left flank pain. He describes the pain is significantly worse than the first episode. It is aching and stabbing and radiates from his left flank to his left groin. He denies any penile or testicular pain. He states he did have an episode of diarrhea, also noted some hematuria just prior to coming to the emergency department. He states the pain is much worse from last night and slightly different than as well. No other complaints time. No other modifying factors. History of demonstrates notable left lower quadrant tenderness, mild left CVA groin tenderness. Genital exam is unremarkable. No evidence of torsion, testicular abnormality or tenderness. Exam certainly appears different than last night. Notably worse than previous exam. With the patient's percent hematuria in the absence of stone, I do worry about kidney pathology, including potential renal infarct. We will get CT/CTA with contrast for further identification of the evaluation of potential vascular compromise to the kidney. We will get a repeat urinalysis, rehydrate manage the patient's pain monitor closely and reassess. 7:21 AM Laboratory work-up is returned unremarkable, no white count bandemia or left shift. Renal function stable. Urinalysis does show evidence of blood in the urine again, no evidence of infection. Repeat CT scan shows no evidence of renal infarct, initial CT read was negative, however read discussion of the case with the radiologist there does appear to be a 2 mm bladder calculus that is present, as well as some mild hydroureter in comparison to the right. Likely suspicious of a passed stone. On reassessment the patient's pain is notably improved/resolved. He is feeling well. Patient will be given Toradol here. Patient feels well to go home. Will place urology referral for further assessment for potential ureteral stricture which may have been a component of his increased pain as he also does demonstrate an atypical L-shaped in his ureter as well. Patient stable for discharge. I have extensively reviewed the treatment plan and discharge instructions with the patient and their family. I have addressed all patient concerns at this time. The patient and family was made aware of what symptoms to monitor for that would warrant a return to the emergency department. Discussed the plan with the patient and family, they demonstrate verbal understanding and agreement with our assessment and plan at this time. The documentation in this chart was dictated using [employer] dictation software. Please excuse any dictation errors. Addendum created by Rico Blanco MD on 11/03/2021 7:12 AM Eastern Time ([place]): A 2 mm bladder calculus is present. This may reflect a recently passed left-sided ureteral stone, as by clinical report, the patient presented with resolving symptoms of left-sided renal colic THIS REPORT CONTAINS FINDINGS THAT MAY BE CRITICAL TO PATIENT CARE. The findings were verbally communicated via telephone conference with CIRILO JORDAN at 7:12 AM EST on 11/03/2021. The findings were acknowledged and understood. FINDINGS: Aorta: No aortic aneurysm. No aortic dissection. Celiac trunk and mesenteric arteries: No occlusion or significant stenosis. Renal arteries: No occlusion or significant stenosis. Right iliac arteries: No occlusion or significant stenosis. Left iliac arteries: No occlusion or significant stenosis. Liver: No mass. Gallbladder and bile ducts: Unremarkable. No calcified stones. No ductal dilation. Pancreas: Unremarkable. No mass. No ductal dilation. Spleen: Unremarkable. No splenomegaly. Adrenal glands: Unremarkable. No mass. Kidneys and ureters: Unremarkable. No solid mass. No hydronephrosis. Stomach and bowel: Unremarkable. No obstruction. No mucosal thickening. Appendix: No evidence of appendicitis. Intraperitoneal space: Unremarkable. No free air. No significant fluid collection. Lymph nodes: Unremarkable. No enlarged lymph nodes. Urinary bladder: The urinary bladder is thick-walled compatible with cystitis. Reproductive: Unremarkable as visualized. Bones/joints: No acute fracture. No dislocation. Soft tissues: Unremarkable. IMPRESSION: The urinary bladder is thick-walled compatible with cystitis. Thank you for allowing us to participate in the care of your patient. Dictated and Authenticated by: Rico Blanco MD 11/03/2021 6:33 AM Eastern Time ([place]) HPI General Date/Time Provider Initiated Documentation: 11/03/21 05:20. HPI Narrative: This is a 61-year-old male with a past medical history of previous ruptured appendix, appendectomy, arthritis, GERD, obstructive sleep apnea, who presents today for abdominal pain. Patient was seen yesterday at which time he had mild left flank pain which was notably resolved by the time he actually arrived to the emergency department. Work-up demonstrated a noncontrast CT scan with no significant abnormalities with mild enteritis, he did have mild hematuria noted in UA. Labs are otherwise unremarkable. Patient's pain was essentially minimal upon his arrival to the ED, and it was gone at the time he left. He is discharged home in states that he did well throughout the day and had no significant pain during the morning afternoon or evening. However just 30 minutes prior to arrival here tonight 5:40 AM the patient had a return sudden onset severe left flank pain. He describes the pain is significantly worse than the first episode. It is aching and stabbing and radiates from his left flank to his left groin. He denies any penile or testicular pain. He states he did have an episode of diarrhea, also noted some hematuria just prior to coming to the emergency department. He states the pain is much worse from last night and slightly different than as well. No other complaints time. No other modifying factors. Related Data Home Medications Medication Instructions Recorded Confirmed Unknown [No Known Home Meds] 01/26/21 11/03/21 Allergies Allergy/AdvReac Type Severity Reaction Status Date / Time bupropion Allergy Anaphylaxsi Verified 11/03/21 05:24 s General Stated Complaint: Abd Prob CONOR: 3 Review of Systems All systems reviewed & are unremarkable except as noted in HPI and below PFSH Active Problem List Acute left flank pain (Acute) Elevated TSH (Acute) HTN (hypertension) (Chronic) Edema (Acute) Tubular adenoma of rectum (Acute ~09/28/18) Personal history of colonic polyps (Acute) Encounter for screening colonoscopy (Acute) Rosacea (Chronic 10/17/16) Polyp of colon (Chronic 08/18/09) Obstructive sleep apnea syndrome (Chronic) Obesity (Chronic) Nevus, non-neoplastic (Chronic) Gastroesophageal reflux disease (Chronic) Family history of colon cancer in father (Chronic 06/20/18) Chronic low back pain without sciatica (Chronic 06/20/18) Arthritis of facet joint of lumbar spine (Chronic 06/29/18) Medical History Adenomatous colon polyp (08/18/09) Arthritis of facet joint of lumbar spine Chronic low back pain Family history of colon cancer Father, age 81 GERD (gastroesophageal reflux disease) History of smoking Non-neoplastic nevus of skin Obesity GABRIELA (obstructive sleep apnea) Rosacea Smoker quit 3 years ago. Surgical History H/O colonoscopy dr villalobos tubular adenoma repeat five years Family History Mother , age 72 Myeloma Father Colon cancer Alcohol abuse Sister Alcohol abuse Melanoma Substance abuse Sister Heart disease Son No problems noted. Son Substance abuse Daughter Depression Social History Smoking/Tobacco Use Status: Former Tobacco Use Tobacco: How many years used: 25 Second Hand Exposure: Yes Smoking risk assessment performed?: Yes Alcohol Intake: current Alcohol Intake frequency: holidays/special occasions only Alcohol type: hard liquor Drug use: Occasionally Substance use type: marijuana Household members: spouse and children Do you need help understanding health information?: Rarely Pets and animals: Yes Pets and animals: cat(s), dog(s) and guinea pig(s) Sexually active: No Do you think of yourself as: straight/heterosexual Current gender identity: male What is your relationship status?: How often do you talk on the phone with friends or family?: three or more times per week How often do you get together with friends or relatives?: twice per week How often do you attend advent or jew services?: 1-3 times per year Do you belong to any clubs or organized social groups?: no Panel score (0-1 are the most socially isolated patients): 2 What type of physical activity do you participate in: walking Duration: 15-30 minutes/day Frequency: 1-2 times per week Penelope/Yarsani: No preference Special penelope needs: No Seatbelt use: always Drive 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 3.ENT: Atraumatic external nose and ears. Moist MM. Neck: Symmetric, trachea midline, No thyromegaly. 4.CVS: +S1/S2, No murmurs or gallops. Peripheral pulses 2+ and equal in all extremities. Brisk capillary refill in all extremities. 5.RESP: Unlabored respiratory effort. Clear to auscultation bilaterally. No wheezes rales or rhonchi 6.GI: Soft, nondistended, notable tenderness to the left lower abdominal quadrant, and left flank. Moderate CVA tenderness. Mild left groin tenderness that is reproducible. No testicular tenderness. No penile tenderness. Normal cremasteric reflex bilaterally. Genitalia is otherwise unremarkable. 7.MSK: Normocephalic/Atraumatic, Extremities w/o deformity or ttp No cyanosis or clubbing, Normal movement of all extremities 8.Skin: Warm, Dry. No rashes or lesions. 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 Sensation grossly intact, no focal neurologic deficits. 10.Psych: (AAO) x3. Appropriate mood and affect Course Vital Signs Vital signs: Vital Signs Temperature 35.9 C L 11/03/21 05:20 Pulse 58 L 11/03/21 05:20 Respiratory Rate 24 11/03/21 05:20 Blood Pressure 145/72 H 11/03/21 05:20 Pulse Oximetry 98 11/03/21 05:20 Temperature 35.9 C L 11/03/21 05:20 Temperature Source Skin 11/03/21 05:20 Pulse 58 L 11/03/21 05:20 Respiratory Rate 24 11/03/21 05:20 Blood Pressure 145/72 H 11/03/21 05:20 Pulse Oximetry 98 11/03/21 05:20 Pain Level 10 11/03/21 05:20
[2021-11-03 05:41] LABS: Abs Immature Grans 0.03 10^3/uL (0.0-0.06); Absolute Basophil Count 0.02 10^3/uL (0.0-0.2); Absolute Eosinophil Count 0.08 10^3/uL (0.0-0.7); Absolute Lymphocyte Count 1.79 10^3/uL (1.2-3.4); Absolute Monocyte Count 0.72 10^3/uL (0.1-0.8); Absolute Neutrophil Count 3.44 10^3/uL (1.2-6.7); Basophils % 0.3; Eosinophils % 1.3; HCT 48.2 % (40.0-50.0); HGB 15.7 g/dL (13.5-17.5); Immature Grans % 0.5; Lymphocytes % 29.4; MCH 28.5 pg (27.0-33.0); MCHC 32.6 % (32.0-36.0); MCV 87.6 fL (80-95); MPV 10.1 fL (8.0-11.0); Monocytes % 11.8; Neutrophils % 56.7; Nucleated RBC 0 %; Platelet Count 161 10^3/uL (130-400); RDW 13.2 % (11.8-14.1); RDW-SD 42.9 fL; WBC 6.08 10^3/uL (4.4-10.8)
[2021-11-03 05:42] LABS: Lactate 1.2 mmol/L (0.6-1.4)
[2021-11-03] MEDS: Ondansetron 4 MG/2 ML VIAL IVP (05:45)
[2021-11-03] MEDS: Normal Saline 500 ML IV (05:45)
[2021-11-03 05:54] LABS: Bilirubin Small (Negative); Blood Large (Negative); Clarity Cloudy (Clear); Glucose Negative (Negative); Ketones Trace mg/dL (Negative); Leukocyte Esterase Negative (Negative); Nitrite Negative (Negative); Specific Gravity >= 1.030 (1.005-1.025); Urobilinogen 0.2 EU/dL (Up TO 0.2); pH 5.5 (5-8)
[2021-11-03 05:58] LABS: ALT 29 U/L (16-63); AST 18 U/L (15-37); Albumin 3.9 g/dL (3.4-5.0); Alkaline Phosphatase 73 U/L (46-116); Anion Gap 9.1 mmol/L (3-11); BUN 19 mg/dL (7-18); Bilirubin, Total 0.3 mg/dL (0.2-1.0); CO2 24.9 mmol/L (21.0-32.0); CREATININE 1.5 mg/dL (0.70-1.30); Calcium 8.2 mg/dL (8.5-10.1); Chloride 107 mmol/L (98-107); Estimated GFR 47.27 (mL/min/1.73m2); Glucose 145 mg/dL (74-106); Potassium 3.8 mmol/L (3.5-5.1); Sodium 141 mmol/L (136-145); Total Protein 7.2 g/dL (6.4-8.2)
[2021-11-03 06:08] LABS: C & S Indicated? Yes; RBC >50 HPF (0-2)
[2021-11-03] MEDS: Omnipaque 350 MG/ML 100 ML BTL IJ (06:16)
[2021-11-03] MEDS: Normal Saline Flush 10 ML SYR IVP (06:17)
--- NOTE | 2021-11-03 06:33 | DI.VRAD_ITS ---
Addendum created by Rico Blanco MD on 11/03/2021 7:12:41 AM EST: A 2 mm bladder calculus is present. This may reflect a recently passed left-sided ureteral stone, as by clinical report, the patient presented with resolving symptoms of left-sided renal colic THIS REPORT CONTAINS FINDINGS THAT MAY BE CRITICAL TO PATIENT CARE. The findings were verbally communicated via telephone conference with CYNTHIA JORDAN at 7:12 AM EST on 11/03/2021. The findings were acknowledged and understood. Initial report created on 11/03/2021 6:33:21 AM EST: PROCEDURE INFORMATION: Exam: CTA Abdomen and Pelvis With Contrast Exam date and time: 11/03/2021 5:34 AM Age: 61 years old Clinical indication: Abdominal pain; Generalized; Prior surgery; Surgery date: 6+ months; Surgery type: Appendectomy; Patient HX: L flank pain, hematuria, R/O renal infarct/mes. Isc TECHNIQUE: Imaging protocol: Computed tomographic angiography of the abdomen and pelvis with contrast material. 3D rendering (Not supervised by radiologist): MIP and/or 3D reconstructed images were created by the technologist. Radiation optimization: All CT scans at this facility use at least one of these dose optimization techniques: automated exposure control; mA and/or kV adjustment per patient size (includes targeted exams where dose is matched to clinical indication); or iterative reconstruction. Contrast material: OMNIPAQUE 350; Contrast volume: 100 ml; Contrast route: INTRAVENOUS (IV); COMPARISON: CT RENAL COLIC WO 11/02/2021 12:20 AM FINDINGS: Aorta: No aortic aneurysm. No aortic dissection. Celiac trunk and mesenteric arteries: No occlusion or significant stenosis. Renal arteries: No occlusion or significant stenosis. Right iliac arteries: No occlusion or significant stenosis. Left iliac arteries: No occlusion or significant stenosis. Liver: No mass. Gallbladder and bile ducts: Unremarkable. No calcified stones. No ductal dilation. Pancreas: Unremarkable. No mass. No ductal dilation. Spleen: Unremarkable. No splenomegaly. Adrenal glands: Unremarkable. No mass. Kidneys and ureters: Unremarkable. No solid mass. No hydronephrosis. Stomach and bowel: Unremarkable. No obstruction. No mucosal thickening. Appendix: No evidence of appendicitis. Intraperitoneal space: Unremarkable. No free air. No significant fluid collection. Lymph nodes: Unremarkable. No enlarged lymph nodes. Urinary bladder: The urinary bladder is thick-walled compatible with cystitis. Reproductive: Unremarkable as visualized. Bones/joints: No acute fracture. No dislocation. Soft tissues: Unremarkable. IMPRESSION: The urinary bladder is thick-walled compatible with cystitis. Dictated and Authenticated by: Rico Blanco MD. Ordering:JOANNE Kerr MD
[2021-11-03] MEDS: Ketorolac 30 MG/ML VIAL IVP (07:28)
--- NOTE | 2021-11-04 08:38 | NUR.NOTE ---
referral to urology for stricture
== END 2021-11-03 07:31 | disposition home or self-care (01) ==
PROVIDERS: Emergency Provider Student in an Organized Health Care Education/Training Program; PCP Nurse Practitioner Family
DX: N20.0 Calculus of kidney (principal); R31.9 Hematuria, unspecified; R10.32 Left lower quadrant pain
CPT/HCPCS: 80053; 96361; 96374; 96375; 99285; 74174; 81003; 81015; 83605; 85025; 87086; 99284; J1885; J2405; J3490

== ENCOUNTER 2021-12-22 14:07 | Outpatient (REF) | payer BC, SELFPAY ==
[2021-12-24 11:42] LABS: Source: Passed Stone
== END 2021-12-22 14:08 | disposition home or self-care (01) ==
LOC: LBN 14:07
PROVIDERS: PCP Nurse Practitioner Family; Visit Provider Nurse Practitioner Gerontology
DX: N20.0 Calculus of kidney (principal)
CPT/HCPCS: 82365

== ENCOUNTER 2022-06-21 18:56 | Outpatient (REF) | payer BC, SELFPAY | END 2022-06-21 18:57 | disposition home or self-care (01) | LOC: LBN 18:56 | PROVIDERS: PCP Nurse Practitioner Family; Visit Provider Nurse Practitioner Family | DX: N39.0 Urinary tract infection, site not specified (principal) | CPT/HCPCS: 87086 ==

== ENCOUNTER 2023-12-21 18:52 | Emergency (ER) | payer MEDICARE, BC, SELFPAY ==
[2023-12-21] VITALS (14 sets, daily range): BP systolic 166–186; BP diastolic 81–87; PULSE 62–74; RESP 13–26; TEMP 36.1; O2SAT 96
--- NOTE | 2023-12-21 18:45 | RT.EKG_ITS ---
APPROVED REPORT Exam: Resting ECG Reason for Exam: CHEST PAIN Patient Location: E HR:68 bpm ECG Measurements Heart Rate 68 AXIS UT 172 P 48 QRSd 100 QRS -37 QT 399 T 58 QTc 426 Conclusion Sinus rhythm...normal P axis, V-rate 60- 99 Left axis deviation...QRS axis (-30,-90) sinus rhythm, left axis, non ischemic
--- NOTE | 2023-12-21 19:00 | DI.RAD_ITS ---
Exam(s) XR CHEST 2V PA LATERAL EXAM: XR CHEST 2V PA LATERAL CLINICAL HISTORY: chest pain TECHNIQUE: 2D digital imaging was performed. COMPARISON: CR,XR XR CHEST 2V PA LATERAL from 09/28/2019 FINDINGS: HEART: Normal size. Aorta: Not dilated. PULMONARY VASCULATURE: Normal. LUNGS: Clear. PLEURAL SPACE: No pleural effusion or pneumothorax. BONE:Unremarkable for age. Soft tissues: Unremarkable. IMPRESSION: No acute abnormality. DATA REPOSITORY: RADIATION DOSE DELIVERED:
--- NOTE | 2023-12-21 19:11 | W.ED.GENAD ---
HPI General Date/Time Provider Initiated Documentation: 12/21/23 18:58. HPI Narrative: 63-year-old male presents with anterior chest pain rating to his left shoulder over the last 2 days, now resolved. Denies shortness of breath nausea vomiting fevers chills presyncope or other systemic signs of illness. Hurts worse with motion of the left upper extremity. Related Data Home Medications Medication Instructions Recorded Confirmed Unknown [No Known Home Meds] 01/26/21 12/21/23 Allergies Allergy/AdvReac Type Severity Reaction Status Date / Time bupropion Allergy Anaphylaxsi Verified 12/21/23 18:58 s General Stated Complaint: Chest Pain CONOR: 2 Review of Systems Narrative: Review of Systems Constitutional: negative Eyes: negative ENT: negative Cardiovascular: Chest pain Respiratory: negative Gastrointestinal: negative : negative Musculoskeletal: negative Skin: negative Neurologic: negative Psych: negative Exam Narrative Exam Narrative: Physical Examination General: alert, awake, cooperative, resting comfortably, no acute distress HEENT: normocephalic, atraumatic; PERRL, EOM intact, conjunctiva normal; no nasal discharge; moist mucous membranes, oral and pharyngeal mucosa normal, tolerating secretions Neck: supple, trachea midline; full ROM Chest: normal to inspection Respiratory: normal respiratory effort, speaking in full sentences, clear to auscultation, no wheezing, rales or rhonchi Cardiac: regular rate, regular rhythm, S1S2 intact, no murmurs rubs or gallops GI: abdomen soft, non-tender, non-distended; no palpable mass or hepatosplenomegaly Skin: no lesions, rashes or trauma appreciated Neuro: AAOx3, normal speech, moving all extremities Extremities: No peripheral edema Psych: Appropriate mood and affect Course Vital Signs Vital signs: Vital Signs Temperature 36.1 C L 12/21/23 18:54 Pulse 67 12/21/23 18:54 Respiratory Rate 26 H 12/21/23 18:54 Blood Pressure 186/86 H 12/21/23 18:54 Pulse Oximetry 96 12/21/23 18:54 Temperature 36.1 C L 12/21/23 18:54 Temperature Source Skin 12/21/23 18:54 Pulse 67 12/21/23 18:54 Respiratory Rate 26 H 12/21/23 18:54 Respiratory Effort Normal, Non-Labored 12/21/23 18:58 Blood Pressure 186/86 H 12/21/23 18:54 Blood Pressure Position Supine 12/21/23 18:54 Pulse Oximetry 96 12/21/23 18:54 Oxygen Delivery Method Room Air 12/21/23 18:54 Oxygen Flow Rate 0 12/21/23 18:54 Pain Level 4 12/21/23 18:54 Medical Decision Making 63-year-old male presents with left anterior chest pain rating to left shoulder worse with motion of left upper extremity, nonexertional in nature, began 2 days ago now resolved, no fevers chills diaphoresis nausea vomiting or presyncope. No palpitations. Noted to be hypertensive in arrival speaking full sentences clear lungs bilaterally no peripheral edema. EKG normal sinus rhythm nonischemic. Consider musculoskeletal chest pain given worse with motion of left upper extremity, versus pleurisy versus costochondritis versus must consider ACS lower suspicion for PE aortic pathology pneumothorax or pleural effusion. Screening x-ray EKG, basic labs troponin, aspirin close reassessment of symptoms 20: 01 patient resting comfortably no acute distress. EKG and labs unremarkable. Given reproducibility with palpation over distal left pectoralis consider pectoralis strain versus rotator cuff injury, home care instructions and return precautions given Quality:SDOH Health Related Social Needs: No Data to Display PFSH All Active Problems (Updated 12/21/23 @ 20:03 by Werner Wilkinson MD) Chest pain (Acute) Renal insufficiency (Chronic) Elevated TSH (Acute) HTN (hypertension) (Chronic) Edema (Acute) Not often Tubular adenoma of rectum (Acute ~09/28/18) Personal history of colonic polyps (Acute) Rosacea (Chronic 10/17/16) Obstructive sleep apnea syndrome (Chronic) Does not use CPAP Obesity (Chronic) Nevus, non-neoplastic (Chronic) Gastroesophageal reflux disease (Chronic) Non medicated Family history of colon cancer in father (Chronic 06/20/18) age 81 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 Medical History Adenomatous colon polyp (08/18/09) Arthritis of facet joint of lumbar spine History of smoking Quit 10 years ago. Obesity Rosacea Smoker quit 3 years ago. Surgical History H/O colonoscopy dr villalobos tubular adenoma repeat five years History of appendectomy Family History Mother , age 72 Myeloma Father , 89 Colon cancer Alcohol abuse Sister Alcohol abuse Melanoma Substance abuse Sister Heart disease Son No problems noted. Son Substance abuse Daughter Depression Social History Smoking/Tobacco Use Status: Former Tobacco Use tobacco type: cigarettes Tobacco: How many years used: 25 Second Hand Exposure: Yes Smoking risk assessment performed?: Yes Alcohol Intake: current Alcohol Intake frequency: holidays/special occasions only Alcohol type: hard liquor Drug use: Occasionally Substance use type: marijuana Caregiver/Support person: No Household members: spouse and children Housing: house Do you need help understanding health information?: Rarely Pets and animals: Yes Pets and animals: cat(s) and guinea pig(s) Sexually active: No Do you think of yourself as: straight/heterosexual Current gender identity: male What is your relationship status?: How often do you talk on the phone with friends or family?: three or more times per week How often do you get together with friends or relatives?: once per week How often do you attend gnosticist or sikh services?: 1-3 times per year Do you belong to any clubs or organized social groups?: no Panel score (0-1 are the most socially isolated patients): 2 What type of physical activity do you participate in: walking and other Details: hiking, skiing,golf,kayaking Duration: 60-90 minutes/day Frequency: 1-2 times per week Penelope/Hinduism: No preference Special penelope needs: No Seatbelt use: always Helmet use: Yes Helmet use: always 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 Return to the emergency department for any worsening symptoms
[2023-12-21] MEDS: Aspirin 81 MG CHEW 324 MG CH (19:16)
[2023-12-21] MEDS: Lidocaine 5% Patch 1 PATCH TP (19:21)
[2023-12-21 19:24] LABS: Abs Immature Grans 0.04 10^3/uL (0.0-0.06); Absolute Basophil Count 0.02 10^3/uL (0.0-0.2); Absolute Eosinophil Count 0.08 10^3/uL (0.0-0.7); Absolute Lymphocyte Count 1.81 10^3/uL (1.2-3.4); Absolute Neutrophil Count 3.93 10^3/uL (1.2-6.7); Basophils % 0.3; Eosinophils % 1.2; HCT 51.8 % (40.0-50.0); HGB 16.9 g/dL (13.5-17.5); Immature Grans % 0.6; Lymphocytes % 27.9; MCH 28.3 pg (27.0-33.0); MCHC 32.6 % (32.0-36.0); MCV 87 fL (80-95); Monocytes % 9.3; Neutrophils % 60.7; Platelet Count 178 10^3/uL (130-400); RBC 5.98 10^6/uL (4.36-5.78); RDW 13.9 % (11.8-14.1); RDW-SD 44.5 fL; WBC 6.48 10^3/uL (4.4-10.8)
[2023-12-21 19:37] LABS: PTT Activated 27.3 sec (23.6-32.8); Prothrombin Time 9.8 sec (9.1-11.1)
[2023-12-21 19:41] LABS: Troponin I < 50 ng/L (< or =60)
--- NOTE | 2023-12-21 19:41 | DI.VRAD_ITS ---
PROCEDURE INFORMATION: Exam: XR Chest Exam date and time: 12/21/2023 7:29 PM Age: 63 years old Clinical indication: Other: Chest pain TECHNIQUE: Imaging protocol: Radiologic exam of the chest. Views: 2 views. COMPARISON: CR XR CHEST 2V PA LATERAL 09/28/2019 5:33 PM FINDINGS: Lungs: Unremarkable. No consolidation. Pleural spaces: Unremarkable. No pleural effusion. No pneumothorax. Heart/Mediastinum: Grossly stable. Bones/joints: Unremarkable. IMPRESSION: No acute findings. Dictated and Authenticated by: Doug Kasper MD. Ordering:CHADWICK Caldera MD
[2023-12-21 19:43] LABS: ALT 45 U/L (16-63); AST 28 U/L (15-37); Albumin 4.3 g/dL (3.4-5.0); Alkaline Phosphatase 69 U/L (46-116); BUN 21 mg/dL (7-18); Bilirubin, Total 0.5 mg/dL (0.2-1.0); CREATININE 1.3 mg/dL (0.70-1.30); Calcium 9.3 mg/dL (8.5-10.1); Chloride 105 mmol/L (98-107); Estimated GFR 60.96 (mL/min/1.73m2); Glucose 93 mg/dL (74-106); Sodium 143 mmol/L (136-145); Total Protein 8.1 g/dL (6.4-8.2)
== END 2023-12-21 20:14 | disposition home or self-care (01) ==
PROVIDERS: Emergency Provider Emergency Medicine; PCP Nurse Practitioner Family
DX: R07.9 Chest pain, unspecified (principal); I10 Essential (primary) hypertension; Z87.891 Personal history of nicotine dependence
CPT/HCPCS: 80053; 93005; 99284; 71046; 84484; 85025; 85610; 85730; 93010

== ENCOUNTER 2024-02-22 08:26 | Emergency (ER) | payer MEDICARE, BC, SELFPAY ==
[2024-02-22 08:34] VITALS: BP 149/75; PULSE 94; RESP 16; TEMP 36.4; O2SAT 96
--- NOTE | 2024-02-22 08:44 | ED.GENADUL_ITS ---
Discharge Plan Disposition Patient Disposition: Home Condition: Stable Discharge Details Clinical Impression: Urinary tract infection Primary Care Provider: Elio Salas ED Provider: Ledy Chavez Home Meds and New Rx's Prescriptions: New cephalexin 500 mg tablet 500 mg PO BID 10 Days Qty: 20 0RF phenazopyridine [Pyridium] 100 mg tablet 100 mg PO TID PRNQty: 6 0RF No Action omeprazole 20 mg capsule,delayed release(DR/EC) 20 mg PO DAILY Qty: 30 0RF Discharge Instructions Instructions: Urinary Tract Infection in Men (ED) Additional Instructions: Please take the antibiotic twice daily for the next 10 days with yogurt or probiotic as directed. You do have a urinary tract infection. Follow up with primary care provider in 3-5 days. Return to ED sooner if any worsening or concerns. Please take Tylenol or Ibuprofen with food every 4-6 hours as needed for pain and swelling. The Pyridium will turn your urine bright orange and may stain your close. Stand Alone Forms: Work Release Referrals: Elio Salas, CRM SOLUTION ARCHITECT [Primary Care Provider] - 5 days HPI General Mode of arrival: ambulatory . Date/Time Provider Initiated Documentation: 02/22/24 08:30 . Limitations to Documentation: no limitations . Information obtained by: patient, RN notes reviewed and old records reviewed . HPI Narrative: 63-year-old male with a chief complaint of myalgias for the last 2 days and dysuria presents to the ER. He reports urinary hesitancy frequency and burning. He also notes some lower back pain. Denies any nausea vomiting diarrhea, ear pain, sore throat, or cough. Past medical history includes GERD, obesity arthritis. Surgical history includes appendectomy and colonoscopy. Related Data Home Medications Medication Instructions Recorded Confirmed omeprazole 20 mg capsule,delayed 20 mg PO DAILY #30 caps 12/27/23 02/22/24 release cephalexin 500 mg tablet 500 mg PO BID 10 days #20 tabs 02/22/24 phenazopyridine 100 mg tablet 100 mg PO TID PRN 6 doses #6 tabs 02/22/24 (Pyridium) Previous Rx's Medication Instructions Recorded omeprazole 20 mg capsule,delayed 20 mg PO DAILY #30 caps 12/27/23 release cephalexin 500 mg tablet 500 mg PO BID 10 days #20 tabs 02/22/24 phenazopyridine 100 mg tablet 100 mg PO TID PRN 6 doses #6 tabs 02/22/24 (Pyridium) Allergies Allergy/AdvReac Type Severity Reaction Status Date / Time bupropion Allergy Anaphylaxsi Verified 02/22/24 08:33 s General Stated Complaint: Urinary CONOR: 3 Review of Systems Genitourinary Genitourinary: Reports dysuria Exam Narrative Exam Narrative: Constitutional: Alert and oriented x3. Appears stated age. Normal body habitus. Head: Normocephalic, no trauma. Eyes: Pupils PERRL, Red reflex noted, EOM's intact. Eyelids symmetrical without lesions, discharge, or swelling. ENT: Bilateral TM's WNL, External ear normal to inspection, no mastoid TTP, swelling, or erythema, Nasal turbinates WNL, no nasal discharge. Normal dentition, Posterior pharynx WNL, no exudate. Chest: RRR, Normal S1, S2, distal pulses intact. Resp: Lungs clear to auscultation bilaterally, no wheezes, rales, or rhonchi. Abdomen: Soft, non-distended, Normoactive bowel sounds all 4 quads. Skin: No suspicious rashes or lesions. Capillary refill less than 2 sec. Neurologic: Cranial nerves II-XII intact. Alert and oriented x 3. Motor: No deficits noted. Sensory: Intact bilaterally all 4 extremities. Hematologic/Lymphatic: No ecchymosis, no lymphadenopathy. Course Vital Signs Vital signs: Vital Signs Temperature 36.4 C L 02/22/24 08:34 Pulse 94 H 02/22/24 08:34 Respiratory Rate 16 02/22/24 08:34 Blood Pressure 149/75 H 02/22/24 08:34 Pulse Oximetry 96 02/22/24 08:34 Temperature 36.4 C L 02/22/24 08:34 Temperature Source Temporal Artery Scan 02/22/24 08:34 Pulse 94 H 02/22/24 08:34 Respiratory Rate 16 02/22/24 08:34 Respiratory Effort Normal, Non-Labored 02/22/24 08:37 Blood Pressure 149/75 H 02/22/24 08:34 Blood Pressure Position Sitting 02/22/24 08:34 Pulse Oximetry 96 02/22/24 08:34 Oxygen Delivery Method Room Air 02/22/24 08:34 Oxygen Flow Rate 0 02/22/24 08:34 Pain Level 8 02/22/24 08:34 Comment 2 Brittny at 0630 02/22/24 08:34 Medical Decision Making 63-year-old male with a chief complaint of myalgias for the last 2 days and dysuria presents to the ER. He reports urinary hesitancy frequency and burning. He also notes some lower back pain. Denies any nausea vomiting diarrhea, ear pain, sore throat, or cough. Past medical history includes GERD, obesity arthritis. Surgical history includes appendectomy and colonoscopy. Urinalysis ordered, will consider labs and line if needed. Urinalysis shows positive nitrites large bilirubin, small leukocytes greater than 50 RBCs 15 ketones. Culture is pending at this time. Patient given cephalexin 500 mg here in the department and Pyridium. Instructed on follow-up care and strict return instructions. This text was generated using Evertaleation system, please disregard any oddities of phrase or misspellings. Lab Data Lab results reviewed: Yes I reviewed the patient's lab results. Labs: 02/22/24 08:36 Urine - Reflex from Ua Urine Culture - Pending Laboratory Tests Range/Units 02/22/24 08:36 Urine Color (Yellow) Dark Yellow Urine Clarity (Clear) Sl Cloudy Urine pH (5-8) 5.5 Ur Specific [place] (1.005-1.025) >= 1.030 H Urine Protein (Neg-Trace) mg/dL >=300 H Urine Ketones (Negative) mg/dL 15 H Urine Blood (Negative) Large H Urine Nitrite (Negative) Positive H Urine Bilirubin (Negative) Large H Urine Urobilinogen (Up to 0.2) mg/dL 1.0 H Ur Leukocyte Esterase (Negative) Small H Urine RBC (0-2) HPF >50 H Urine WBC (0-5) HPF 5-10 Ur Epithelial Cells (Negative) HPF Rare Urine Crystals (Negative) HPF Negative Urine Bacteria (Negative) HPF Few Urine Casts (Negative) LPF Negative Urine Mucus (Negative) Trace Ur Culture Indicated? Yes Urine Glucose (Negative) mg/dL Negative Quality:SDOH Health Related Social Needs: No Data to Display PFSH All Active Problems (Updated 02/22/24 @ 09:13 by Ledy Chavez NP) Urinary tract infection (Acute) Renal insufficiency (Chronic) Elevated TSH (Acute) HTN (hypertension) (Chronic) Edema (Acute) Not often Tubular adenoma of rectum (Acute ~09/28/18) Personal history of colonic polyps (Acute) Rosacea (Chronic 10/17/16) Obstructive sleep apnea syndrome (Chronic) Does not use CPAP Obesity (Chronic) Nevus, non-neoplastic (Chronic) Gastroesophageal reflux disease (Chronic) Non medicated Family history of colon cancer in father (Chronic 06/20/18) age 81 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 Medical History Smoker quit 3 years ago. History of smoking Quit 10 years ago. Adenomatous colon polyp (08/18/09) Obesity Rosacea Arthritis of facet joint of lumbar spine Surgical History History of appendectomy H/O colonoscopy dr villalobos tubular adenoma repeat five years Family History Mother , age 72 Myeloma Father , 89 Colon cancer Alcohol abuse Sister Alcohol abuse Melanoma Substance abuse Sister Heart disease Son No problems noted. Son Substance abuse Daughter Depression Social History Smoking/Tobacco Use Status: Former Tobacco Use tobacco type: cigarettes Tobacco: How many years used: 25 Second Hand Exposure: Yes Smoking risk assessment performed?: Yes Alcohol Intake: current Alcohol Intake frequency: holidays/special occasions only Alcohol type: hard liquor Drug use: Occasionally Substance use type: marijuana Caregiver/Support person: No Household members: spouse and children Housing: house Do you need help understanding health information?: Rarely Pets and animals: Yes Pets and animals: cat(s) and guinea pig(s) Sexually active: No Do you think of yourself as: straight/heterosexual Current gender identity: male What is your relationship status?: How often do you talk on the phone with friends or family?: three or more times per week How often do you get together with friends or relatives?: once per week How often do you attend scientologist or denominational services?: 1-3 times per year Do you belong to any clubs or organized social groups?: no Panel score (0-1 are the most socially isolated patients): 2 What type of physical activity do you participate in: walking and other Details: hiking, skiing,golf,kayaking Duration: 60-90 minutes/day Frequency: 1-2 times per week Penelope/Uatsdin: No preference Special penelope needs: No Seatbelt use: always Helmet use: Yes Helmet use: always Drive intox or ride w/intox helper driver: No Do you feel safe at home: Yes Do you feel safe in your relationship?: Yes
[2024-02-22 08:49] LABS: Bilirubin Large (Negative); Blood Large (Negative); Clarity Sl Cloudy (Clear); Glucose Negative (Negative); Ketones 15 mg/dL (Negative); Leukocyte Esterase Small (Negative); Nitrite Positive (Negative); Specific Gravity >= 1.030 (1.005-1.025); pH 5.5 (5-8)
[2024-02-22 08:57] LABS: Bacteria Few HPF (Negative); C & S Indicated? Yes; Casts Negative LPF (Negative); Crystals Negative HPF (Negative); Epithelial Cells Rare HPF (Negative); Mucus Trace (Negative); RBC >50 HPF (0-2)
[2024-02-22] MEDS: Cephalexin 500 MG CAP PO (09:16)
[2024-02-22] MEDS: Phenazopyridine 100 MG TAB PO (09:16)
== END 2024-02-22 09:28 | disposition home or self-care (01) ==
LOC: ER 09:40
PROVIDERS: Emergency Provider Registered Nurse Emergency; PCP Nurse Practitioner Family
DX: N39.0 Urinary tract infection, site not specified (principal); I10 Essential (primary) hypertension; Z87.891 Personal history of nicotine dependence
CPT/HCPCS: 87077; 99283; 81003; 81015; 87086; 87186

== ENCOUNTER → 2024-02-29 14:43 | Outpatient (BNVA) | payer MEDICARE, BC, SELFPAY | PROVIDERS: PCP Nurse Practitioner Family; Referring Provider Nurse Practitioner Family; Visit Provider Physical Therapy Assistant | DX: Z12.11 Encounter for screening for malignant neoplasm of colon (principal); Z86.010 Personal history of colon polyps ==

== ENCOUNTER 2024-03-17 16:37 | Emergency (ER) | payer MEDICARE, BC, SELFPAY ==
[2024-03-17 16:44] VITALS: BP 146/80; PULSE 99; RESP 16; TEMP 37.1; O2SAT 96
--- NOTE | 2024-03-17 17:15 | DI.RAD_ITS ---
Exam(s) XR KNEE LT 3V AP,LAT,JOSE EXAM: XR KNEE LT 3V AP,LAT,JOSE CLINICAL HISTORY: felt knee pop while walking, effusion. TECHNIQUE: 2D digital imaging was performed of the left knee. Three images were obtained. AP, late ral and PA tunnel views were obtained. COMPARISON: None. FINDINGS: BONES: No acute fracture is present. No bony destructive lesion is seen. JOINTS: The knee is normally aligned. No joint effusion is seen. No loose body. SOFT TISSUE: Normal. IMPRESSION: Normal radiographs of the left knee. DATA REPOSITORY: RADIATION DOSE DELIVERED:
--- NOTE | 2024-03-17 17:19 | ED.GENADUL_ITS ---
Discharge Plan Disposition Patient Disposition: Home Condition: Stable Discharge Details Chief Complaint: Orthopedic Clinical Impression: Acute knee pain, Hemarthrosis Primary Care Provider: Elio Salas ED Provider: Werner Wilkinson Home Meds and New Rx's Prescriptions: No Action bisacodyl [Dulcolax (bisacodyl)] 5 mg tablet,delayed release (DR/EC) 5 mg PO ONCE Qty: 4 0RF Rx Instructions: Take per colonoscopy instructions provided by ordering providers office polyethylene glycol 3350 17 gram/dose powder 17 g PO ONCE Qty: 238 0RF Rx Instructions: Take per colonoscopy instructions provided by ordering providers office omeprazole 20 mg capsule,delayed release(DR/EC) 20 mg PO DAILY Qty: 90 3RF phenazopyridine [Pyridium] 100 mg tablet 100 mg PO TID PRNQty: 6 0RF Discharge Instructions Instructions: Knee Pain (ED) Additional Instructions: Please follow-up with orthopedic team. Return to the emerged part for any worsening symptoms HPI General Date/Time Provider Initiated Documentation: 03/17/24 16:40 . HPI Narrative: 64-year-old male presents after feeling a pop in his left knee while going up stairs, painful swollen knee, unable to bear weight. Did not fall to the ground. Related Data Home Medications Medication Instructions Recorded Confirmed phenazopyridine 100 mg tablet 100 mg PO TID PRN 6 doses #6 tabs 02/22/24 (Pyridium) bisacodyl 5 mg tablet,delayed 5 mg PO ONCE #4 tabs 02/29/24 02/29/24 release (Dulcolax (bisacodyl)) polyethylene glycol 3350 17 17 g PO ONCE #238 grams 02/29/24 02/29/24 gram/dose oral powder omeprazole 20 mg capsule,delayed 20 mg PO DAILY #90 caps 03/13/24 release Previous Rx's Medication Instructions Recorded phenazopyridine 100 mg tablet 100 mg PO TID PRN 6 doses #6 tabs 02/22/24 (Pyridium) bisacodyl 5 mg tablet,delayed 5 mg PO ONCE #4 tabs 02/29/24 release (Dulcolax (bisacodyl)) polyethylene glycol 3350 17 17 g PO ONCE #238 grams 02/29/24 gram/dose oral powder omeprazole 20 mg capsule,delayed 20 mg PO DAILY #90 caps 03/13/24 release Allergies Allergy/AdvReac Type Severity Reaction Status Date / Time bupropion Allergy Anaphylaxsi Verified 02/22/24 08:33 s General Stated Complaint: Orthopedic CONOR: 4 Review of Systems Narrative: Review of Systems Constitutional: negative Eyes: negative ENT: negative Cardiovascular: negative Respiratory: negative Gastrointestinal: negative : negative Musculoskeletal: Knee pain, knee swelling Skin: negative Neurologic: negative Psych: negative Exam Narrative Exam Narrative: Physical Examination General: alert, awake, cooperative, resting comfortably, no acute distress Skin: no lesions, rashes or trauma appreciated Neuro: AAOx3, normal speech, moving all extremities Extremities: Left lower extremity: Large joint effusion to knee, no crepitus no deformity no laxity negative anterior drawer, soft compartments, warm well- perfused, sensate, DP pulse intact Psych: Appropriate mood and affect Course Vital Signs Vital signs: Vital Signs Temperature 37.1 C 03/17/24 16:44 Pulse 99 H 03/17/24 16:44 Respiratory Rate 16 03/17/24 16:44 Blood Pressure 146/80 H 03/17/24 16:44 Pulse Oximetry 96 03/17/24 16:44 Temperature 37.1 C 03/17/24 16:44 Temperature Source Temporal Artery Scan 03/17/24 16:44 Pulse 99 H 03/17/24 16:44 Respiratory Rate 16 03/17/24 16:44 Respiratory Effort Normal 03/17/24 17:14 Blood Pressure 146/80 H 03/17/24 16:44 Blood Pressure Position Sitting 03/17/24 16:44 Pulse Oximetry 96 03/17/24 16:44 Oxygen Delivery Method Room Air 03/17/24 16:44 Oxygen Flow Rate 0 03/17/24 16:44 Pain Level 10 03/17/24 16:44 Medical Decision Making 64-year-old male presents with left knee pain, felt a pop while walking upstairs, large effusion to left knee likely hemarthrosis, no joint laxity crepitus or deformity, neurovascular exam intact soft compartments, high clinical suspicion for meniscal versus ligamentous injury. Low suspicion for fracture or dislocation however will obtain screening x-ray of knee, will place patient in knee immobilizer. Will be given orthopedic referral for further evaluation and likely imaging. Analgesia anti-inflammatory with Toradol. 18: 56 no evidence of dislocation or fracture, likely ligamentous or meniscal injury. Patient in knee immobilizer, given crutches. Will be given orthopedic follow-up for next week. Quality:SDOH Health Related Social Needs: No Data to Display PFSH All Active Problems (Updated 03/17/24 @ 19:01 by Werner Wilkinson MD) Hemarthrosis (Acute) Acute knee pain (Acute) Urinary tract infection (Acute) Renal insufficiency (Chronic) Elevated TSH (Acute) HTN (hypertension) (Chronic) Edema (Acute) Not often Tubular adenoma of rectum (Acute ~09/28/18) Personal history of colonic polyps (Acute) Rosacea (Chronic 10/17/16) Obstructive sleep apnea syndrome (Chronic) Does not use CPAP Obesity (Chronic) Nevus, non-neoplastic (Chronic) Gastroesophageal reflux disease (Chronic) Non medicated Family history of colon cancer in father (Chronic 06/20/18) age 81 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 Medical History Smoker quit 3 years ago. History of smoking Quit 10 years ago. Adenomatous colon polyp (08/18/09) Obesity Rosacea Arthritis of facet joint of lumbar spine Surgical History History of appendectomy H/O colonoscopy dr villalobos tubular adenoma repeat five years Family History Mother , age 72 Myeloma Father , 89 Colon cancer Alcohol abuse Sister Alcohol abuse Melanoma Substance abuse Sister Heart disease Son No problems noted. Son Substance abuse Daughter Depression Social History (Updated 02/29/24 @ 15:17 by MITCHELL Nogueira) Smoking/Tobacco Use Status: Former Tobacco Use tobacco type: cigarettes Tobacco: How many years used: 25 Second Hand Exposure: Yes Smoking risk assessment performed?: Yes Alcohol Intake: former Drug use: Occasionally Substance use type: marijuana Caregiver/Support person: No Household members: spouse and children Housing: house Do you need help understanding health information?: Rarely Pets and animals: Yes Pets and animals: cat(s) and guinea pig(s) Sexually active: No Do you think of yourself as: straight/heterosexual Current gender identity: male What is your relationship status?: How often do you talk on the phone with friends or family?: three or more times per week How often do you get together with friends or relatives?: once per week How often do you attend restoration or zoroastrian services?: 1-3 times per year Do you belong to any clubs or organized social groups?: no Panel score (0-1 are the most socially isolated patients): 2 What type of physical activity do you participate in: walking and other Details: hiking, skiing,golf,kayaking Duration: 60-90 minutes/day Frequency: 1-2 times per week Penelope/Christianity: No preference Special penelope needs: No Seatbelt use: always Helmet use: Yes Helmet use: always Drive intox or ride w/intox jeep driver: No Do you feel safe at home: Yes Do you feel safe in your relationship?: Yes
[2024-03-17] MEDS: Ketorolac 15 MG/ML VIAL IM (17:25)
--- NOTE | 2024-03-17 18:25 | DI.VRAD_ITS ---
PROCEDURE INFORMATION: Exam: XR Left Knee Exam date and time: 03/17/2024 5:31 PM Age: 64 years old Clinical indication: Pain; Knee; Left TECHNIQUE: Imaging protocol: Radiologic exam of the left knee. Views: 3 views. COMPARISON: No relevant prior studies available. FINDINGS: Bones/joints: Normal. Soft tissues: Normal. IMPRESSION: No acute findings. Dictated and Authenticated by: Quinten Moses MD. Ordering:CHADWICK Caldera MD
== END 2024-03-17 19:22 | disposition home or self-care (01) ==
PROVIDERS: Emergency Provider Emergency Medicine; PCP Nurse Practitioner Family
DX: M25.562 Pain in left knee (principal); M25.061 Hemarthrosis, right knee; M25.461 Effusion, right knee; I10 Essential (primary) hypertension; Z87.891 Personal history of nicotine dependence
CPT/HCPCS: 73562; 96372; 99283; J1885

== ENCOUNTER 2024-03-22 06:59 | Day surgery (SDC) | payer MEDICARE, BC, SELFPAY ==
--- NOTE | 2024-03-21 21:33 | W.COLOREPORT ---
Date of service: 03/22/24 Time of Service: 09:13 Colonoscopy Report Date of procedure: 03/22/24 Pre-op diagnosis general: Adenomatous polyps Post-op diagnosis procedure note: other (Adenomatous polyps/internal hemorrhoids/diverticula) Surgeon: Destiny Aquino Anesthesia Type: General:No Airway Estimated blood loss (mL): 2 Pathology: other Complications: None Disposition: same day Prep: Miralax/Dulcolax Retraction Time: 13 Procedure Description: After informed consent was obtained the patient was taken to the procedure room and placed in a left decubitous position. Monitors were applied and a time out was done. The patients name, date of , procedure, allergies to medications and metal in their body was reviewed. The patient was then sedated. Once sedated and comfortable a rectal exam was done. External exam was normal. Internal exam revealed a normal sphincter tone and no palpable masses. The scope was then introduced and retrofelexed. Grade 2 internal hemorrhoids x 3 columns were identified. The scope was then advanced to the cecum without difficulty. The TI and appendiceal orifice were identified. The scope was then slowly retracted over 13 minutes back into the rectum. He has a few small scattered diverticula in the sigmoid colon. There is no signs of active bleeding or infection. The mucosa is pink and healthy with a normal vascular pattern. He has 2 polyps that are removed 1 is at 80 cm and is a 1 cm pedunculated polyp. This is removed with a cold snare. A clip is placed over the defect because of bleeding. There is another 0.75 cm polyp at 70 cm. This is removed with a cold snare and a clip is placed over the defect. All specimen is retrieved and no bleeding is noted.. The scope was removed and the patient was woken up and taken back to Same day surgery in stable condition. The patient tolerated the procedure well and there were no immediate complications. Follow up: The patient should follow up in 5 years unless they develop changes in bowel habits or other new gastrointestinal complaints. [place] Bowel Prep [place] Bowel Prep Right Colon: 3 Left Colon: 3 Transverse Colon: 3 Total Score: 9
--- NOTE | 2024-03-21 21:34 | PDOC.DSDIS_ITS ---
Date of service: 03/22/24 Time of Service: 10:21 Discharge Plan Disposition Patient Disposition: Home Condition: Good Discharge Details Reason For Visit: Colonoscopy Attending Provider: Destiny Aquino Primary Care Provider: Elio Salas Home Meds and New Rx's Prescriptions: Continued omeprazole 20 mg capsule,delayed release(DR/EC) 20 mg PO DAILY Qty: 90 3RF Discontinued bisacodyl [Dulcolax (bisacodyl)] 5 mg tablet,delayed release (DR/EC) 5 mg PO ONCE Qty: 4 0RF Rx Instructions: Take per colonoscopy instructions provided by ordering providers office polyethylene glycol 3350 17 gram/dose powder 17 g PO ONCE Qty: 238 0RF Rx Instructions: Take per colonoscopy instructions provided by ordering providers office Discharge Instructions Additional Instructions: DSU Colonoscopy Post- Op Instructions Instructions for Everyone who is given Anesthesia: For your safety, please do the following for the next twenty-four (24) hours: *Do Not operate a motor vehicle (car, truck, motorcycle, etc.) *Do Not drink alcoholic beverages or use any recreational drugs for the first 24 hours or while taking pain medications. The medications in your body may have a reaction that can be dangerous. *Do Not make any important decisions or sign any important papers. Findings: Diverticula-make sure you are moving your bowels on a regular basis and not straining to go to the bathroom. If you find you are having problems with constipation or straining, then it is recommended you start a fiber supplement such as Metamucil. See handout Polyps x 2 Follow up: My office will send you a letter in 3 to 4 weeks time with the results of the pathology and when we want you to repeat colonoscopy, probably in 5 to 7 years time. 1. No lifting over 20 pounds or strenuous activity for the first 24 hours after your procedure. After 24 hours there are no restrictions on your activity but you may feel fatigued for a few days. 2. After you arrive home you may have a light meal and return to your normal diet as you can tolerate it without feeling sick to your stomach. 3. You may have a bloated, gaseous feeling in your belly (abdomen) after a colonoscopy. Passing gas and belching will help. Walking or lying down on your left side with your knees flexed may relieve the discomfort. Call the office at [phone] (Office) or [phone] (Hospital) right away if you notice any of the following: a.Vomiting of blood or ?coffee ground stools?. b.Rectal bleeding 1Tbsp, blood clots or continuous bleeding. c.Severe belly (abdominal) pain. d.A hard distended belly (abdomen) and an inability to pass gas. 4. Please don?t expect to have a normal BM (bowel movement) for 2-3 days after your procedure. 5. If there are questions regarding the findings of your procedure, please contact your doctor 6. If you are unable to contact your doctor with a problem, contact the hospital at [phone]. 7. Continue all your regular medications unless directed otherwise. I understand the above instructions and have no questions. Signature of Patient or Adult Escort Name of Responsible Adult Escort Signature of Nurse Date/Time Stand Alone Forms: Anesthesia Discharge , Steven Farrell (DSU) Activity:: see above Diet:: see above Discharge Orders Discharge Orders: Discharge Order (Routine); Ordered 03/22/24 Ordered By: Destiny Aquino DS: Diagnosis Discharge Diagnosis (1) HTN (hypertension): Status: Chronic (2) Elevated TSH: Status: Acute (3) Obesity: Status: Chronic (4) Gastroesophageal reflux disease: Status: Chronic (5) Tubular adenoma of rectum: Status: Acute Asessment and Plan: The patient is seen and examined after their colonoscopy.? The patient has been able to pass gas.? They are not having abdominal pain.? They have been able to tolerate liquids and a snack.? They do not have any nausea or vomiting.? They are not having any chest pain or shortness of breath.??? They are not having any rectal bleeding. Their vital signs have been stable-see nursing notes. We discussed findings during their colonoscopy, and any biopsies that were done/polyps that were removed. The patient will be sent a letter with any biopsy results, and when to repeat the colonoscopy.-see discharge instructions. Patient was given explicit instructions to follow-up regarding colonoscopy-refer to discharge instructions.? We reviewed resumption of medications. Patient verbalized understanding and discharged in stable and satisfactory condition- See nursing notes. (6) Renal insufficiency: Status: Chronic (7) Family history of colon cancer in father: Status: Chronic (8) Obstructive sleep apnea syndrome: Status: Chronic (9) History of smoking:
[2024-03-22 07:16] VITALS: BP 128/78; PULSE 84; RESP 16; TEMP 36.5; O2SAT 96
[2024-03-22] MEDS: Lactated Ringers 1,000 ML 80 ML IV (07:45)
[2024-03-22 08:12] VITALS: BMI 38.5
--- NOTE | 2024-03-22 08:12 | W.ANESPRE ---
General Info Date of Service Date Performed: 03/22/24 Height: 5 ft 11 in Weight: 125.1 kg Body Mass Index (BMI): 38.5 Surgical Procedure: Operation Date: 03/22/24 08:20 Proposed Procedure Side Surgeon frantz Aquino, Meds Allergies and Home Medications Allergies Allergy/AdvReac Type Severity Reaction Status Date / Time bupropion Allergy Anaphylaxsi Verified 03/22/24 07:24 s Home Medication Medication Instructions Recorded omeprazole 20 mg capsule,delayed 20 mg PO DAILY #90 caps 03/13/24 release Current Visit Medications: Current Medications Generic Name Dose Route Start Last Admin Trade Name Freq PRN Reason Stop Dose Admin Hyoscyamine Sulfate 0.125 mg 03/22/24 09:32 Hyoscyamine 0.125 Mg Sl/Oral/Chew SL 04/21/24 09:31 DIRECTED PRN Ringer's Solution 1,000 mls @ 80 mls/hr 03/22/24 06:00 03/22/24 07:45 IV 03/22/24 23:59 80 mls/hr INFUSION JASE Administration IV Miscellaneous Supplies 1 each 03/22/24 06:00 Iv Access IV 03/22/24 23:59 DIRECTED JASE Ondansetron HCl 4 mg 03/22/24 09:32 Ondansetron 4 Mg/2 Ml Vial IVP 04/21/24 09:31 Q4H PRN PRN Nausea / Vomiting Sodium Chloride 0 ml 03/22/24 06:00 Normal Saline Flush 10 Ml Syr IV 03/22/24 23:59 PRN PRN Sodium Chloride 0 ml 03/22/24 06:00 Normal Saline 10 Ml Vial IJ 03/22/24 23:59 DIRECTED PRN Sterile Water 0 ml 03/22/24 06:00 Water,Injection,Sterile 10 Ml Vial IJ 03/22/24 23:59 DIRECTED PRN PFSH Active Problems Active Problems: Problem Status Onset Code Hemarthrosis M25.00 Acute knee pain M25.569 Urinary tract infection N39.0 Renal insufficiency N28.9 Elevated TSH R79.89 HTN (hypertension) I10 Edema R60.9 Tubular adenoma of rectum ~09/28/18 D12.8 Personal history of colonic polyps Z86.010 Rosacea 10/17/16 L71.9 Obstructive sleep apnea syndrome G47.33 Obesity E66.9 Nevus, non-neoplastic I78.1 Gastroesophageal reflux disease K21.9 Family history of colon cancer in father 06/20/18 Z80.0 Arthritis of facet joint of lumbar spine 06/29/18 M46.96 Medical History Medical History Smoker quit 3 years ago. History of smoking Quit 10 years ago. Adenomatous colon polyp (08/18/09) Obesity Rosacea Arthritis of facet joint of lumbar spine Surgical History Surgical History History of appendectomy H/O colonoscopy dr villalobos tubular adenoma repeat five years Tobacco Smoking/Tobacco Use Status: Former Tobacco Use Passive smoking exposure: Yes Second hand exposure: Yes Alcohol Alcohol Intake: former Substance Use Substance use: Occasionally Substance use type: marijuana Vital Signs and Lab Results Vital Signs Most Recent Vital Signs in EMR: Most Recent Vital Signs Temp Pulse Resp BP Pulse Ox 36.5 C 84 16 128/78 96 03/22/24 07:16 03/22/24 07:16 03/22/24 07:16 03/22/24 07:16 03/22/24 07:16 Lab Results Blood Type / Crossmatch: No Data to Display Complete Blood Count: No Data to Display Complete Metabolic Panel: No Data to Display Liver Function Panel: No Data to Display Coagulation Panel: No Data to Display Cardiac Panel: No Data to Display Arterial Blood Gas: No Data to Display Venous Blood Gas: No Data to Display Pancreas Panel: No Data to Display Thyroid Panel: No Data to Display Infectious Disease: No Data to Display Blood Cultures: No Data to Display Toxicology Panel: No Data to Display Anesthesia Assessment and Plan Anesthesia History Personal History: No History of Anesthesia Complications Family History: No Family History of Anesthesia Complications Exercise Tolerance Exercise Tolerance: Metabolic Equivalents>4 Pertinent Negatives Pertinent Negatives: No Symptoms of GERD Cardiac & Pulmonary Exam Cardiac Exam: Normal S1/S2 Heart Sounds Pulmonary Exam: Clear Bilateral Breath Sounds Implantable Cardiac Device Does patient have a Pacemaker or an ICD?: No Airway Exam Known Difficult Airway: No Mallampati Class: 2 Mouth Opening: Normal (> 3cm) Thyromental Distance: Greater than 3 cm Neck Range of Motion: Full ROM Neck Circumference: Thick Teeth Condition: Normal Dentition ASA Classification ASA Score: ASA 2 Emergency Case?: No NPO Status NPO Status: NPO Clears >2 hours, Solids >8 hours Anesthesia Plan Resuscitation Status: Full Code Anesthesia Technique: General Anesthesia Airway Planned: Natural Airway Monitors Used: Standard Monitors
--- NOTE | 2024-03-22 08:42 | BOWEL_PTH ---
PATIENT: Hitesh Iyer LOC: [facility] U#:[id number] AGE/SX: 64/M ROOM: RE03/22/[address]: Destiny Aquino : 1960 BED: DIS: 03/22/2024 SPEC #: [id number] RECD: 03/22/24 12:28 STATUS: YAKOV REQ #: [id number] PILI: 03/22/24 08:[address]: Destiny Aquino DEPT: Surgical Specimen RECD BY: Avelina Gomez ENTERED: 03/22/24 12:28 SP TYPE: Bowel OTHR DR: Elio Salas, [employer] Tissues: 1 - BIOPSY BOWEL 2 - BIOPSY BOWEL Procedures: GROSS AND MICRO LEVEL 4 Comments: [id number]
[2024-03-22 09:03] VITALS: BP 100/62; PULSE 76; RESP 16; TEMP 36.2; O2SAT 93
--- NOTE | 2024-03-22 09:07 | W.ANESPOSTOP ---
Postoperative Evaluation Date, Time and Location Date Performed: 03/22/24 Time Performed: 09:07 Patient Location: Day Surgery Unit Vital Signs Most Recent Imported Vital Signs: Most Recent Vital Signs Temp Pulse Resp BP Pulse Ox 36.5 C 84 16 128/78 96 03/22/24 07:16 03/22/24 07:16 03/22/24 07:16 03/22/24 07:16 03/22/24 07:16 Pain Score Most Recent Pain Score: Most Recent Pain Score Pain Level 0 03/22/24 07:16 Assessment Mental Status: Awake (Alert & Oriented to Patient Baseline) Airway and Respiratory Function: Patent airway with normal (patient baseline) respiratory exam Cardiovascular Function: Hemodynamically Stable Hydration Status: Adequately Hydrated Nausea & Vomiting: No Nausea or Vomiting Pain: Pt. Denies Any Pain Peripheral Nerve Block: Patient did not receive a nerve block
[2024-03-22 09:33] VITALS: BP 114/76; PULSE 61; RESP 18; TEMP 36.4; O2SAT 97
== END 2024-03-22 10:35 | disposition home or self-care (01) ==
LOC: SUR 06:59
PROVIDERS: PCP Nurse Practitioner Family; Visit Provider Surgery
PROC: 0DJD8ZZ Inspection of Lower Intestinal Tract, Via Natural or Artificial Opening Endoscopic (ICD-10-PCS; CPT 45378; principal; 2024-03-22 08:15)
DX: Z12.11 Encounter for screening for malignant neoplasm of colon (principal); I10 Essential (primary) hypertension; D12.4 Benign neoplasm of descending colon; G47.33 Obstructive sleep apnea (adult) (pediatric); Z87.891 Personal history of nicotine dependence; K64.1 Second degree hemorrhoids; K57.30 Diverticulosis of large intestine without perforation or abscess without bleeding
CPT/HCPCS: 45385; 88305; J2001; J2704

== ENCOUNTER 2024-03-25 18:12 | Outpatient (CLI) | payer MEDICARE, BC, SELFPAY ==
[2024-03-25 17:10] LABS: Abs Immature Grans 0.03 10^3/uL (0.0-0.06); Absolute Basophil Count 0.03 10^3/uL (0.0-0.2); Absolute Monocyte Count 0.56 10^3/uL (0.1-0.8); Absolute Neutrophil Count 4.46 10^3/uL (1.2-6.7); Basophils % 0.4; Eosinophils % 1.5; HCT 44.9 % (40.0-50.0); HGB 15.1 g/dL (13.5-17.5); Immature Grans % 0.4; Lymphocytes % 23.6; MCH 29.2 pg (27.0-33.0); MCHC 33.6 % (32.0-36.0); MCV 87 fL (80-95); Monocytes % 8.3; Neutrophils % 65.8; Platelet Count 149 10^3/uL (130-400); RBC 5.18 10^6/uL (4.36-5.78); RDW-SD 44.6 fL; WBC 6.78 10^3/uL (4.4-10.8)
[2024-03-25 18:08] LABS: Anion Gap 8.9 mmol/L (3-11); BUN 17 mg/dL (7-18); CO2 25.1 mmol/L (21.0-32.0); CREATININE 1.2 mg/dL (0.70-1.30); Calcium 8.8 mg/dL (8.5-10.1); Chloride 105 mmol/L (98-107); Ferritin 231 ng/mL (26-388); Glucose 129 mg/dL (74-106); Potassium 3.3 mmol/L (3.5-5.1); Sodium 139 mmol/L (136-145)
== END 2024-03-25 18:13 | disposition home or self-care (01) ==
LOC: LBO 18:13
PROVIDERS: PCP Nurse Practitioner Family; Visit Provider Surgery
DX: N28.9 Disorder of kidney and ureter, unspecified (principal); D12.8 Benign neoplasm of rectum
CPT/HCPCS: 36415; 80048; 82728; 85025

== ENCOUNTER → 2024-04-04 13:21 | Outpatient (BNVA) | payer MEDICARE, BC, SELFPAY | PROVIDERS: PCP Nurse Practitioner Family; Referring Provider Nurse Practitioner Family | DX: S83.242D Other tear of medial meniscus, current injury, left knee, subsequent encounter (principal); X58.XXXD Exposure to other specified factors, subsequent encounter | CPT/HCPCS: 99213 ==

== ENCOUNTER → 2024-04-19 02:06 | Outpatient (CLI) | payer MEDICARE, BC, SELFPAY ==
--- NOTE | 2024-04-19 06:30 | DI.MRI_ITS ---
Exam(s) MR LOWER JOINT LT WO EXAM: MR LOWER JOINT LT WO CLINICAL HISTORY: PAIN,tear medial meniscus lt knee, s83.242a. TECHNIQUE: Multiplanar multisequence MRI was performed. COMPARISON: CR,XR XR KNEE LT 3V AP,LAT,JOSE from 03/17/2024 FINDINGS: BONES: There is no fracture or contusion pattern. JOINTS: A moderate-sized joint effusion is present. Articular cartilage: Patellofemoral joint: Articular cartilage is unremarkable. Medial femoral tibial joint: Cartilage thinning and irregularity. No focal osteochondral defect. Lateral femoral tibial joint: Articular cartilage is unremarkable. TENDONS: Extensor mechanism: Unremarkable. Medial retinaculum: Unremarkable. Lateral retinaculum: Unremarkable. Popliteus: Some thickening proximally which may indicate tendinosis. MUSCLES: Unremarkable. MENISCI: The medial meniscus shows a horizontal tear in the posterior horn and body The lateral meniscus is unremarkable. SOFT TISSUES: Edema in the subcutaneous fat. No focal collection. LIGAMENTS: Anterior Cruciate: Small amount of fluid within fibers but no visible tear. Posterior Cruciate: Unremarkable. Medial Collateral:Unremarkable. Lateral Collateral: Unremarkable. IMPRESSION: Horizontal tear of the body and posterior horn of the medial meniscus. Chondromalacia of the medial femoral condyle. Question of popliteus tendinosis. DATA REPOSITORY:
== END ==
PROVIDERS: PCP Nurse Practitioner Family; Visit Provider Student in an Organized Health Care Education/Training Program
DX: S83.242A Other tear of medial meniscus, current injury, left knee, initial encounter (principal); X58.XXXA Exposure to other specified factors, initial encounter
CPT/HCPCS: 73721

== ENCOUNTER 2024-05-29 10:43 | Day surgery (SDC) | payer MEDICARE, BC, SELFPAY ==
[2024-05-29] VITALS (27 sets, daily range): BP systolic 97–145; BP diastolic 54–80; PULSE 48–68; RESP 14–19; TEMP 36–36.4; O2SAT 95–100; BMI 37.4
[2024-05-29] MEDS: Celecoxib 200 MG CAP 400 MG PO (11:04)
[2024-05-29] MEDS: Acetaminophen 500 MG TAB 1000 MG PO (11:04)
[2024-05-29] MEDS: Lactated Ringers 1,000 ML 80 ML IV (11:15)
[2024-05-29] MEDS: ceFAZolin 2 GM/50 ML BAG IVPB (12:15)
[2024-05-29] MEDS: TRANEXAMIC ACID/SOD. CHL. 1,000 MG/100 ML BAG 600 MG IVPB (12:24)
--- NOTE | 2024-05-29 12:33 | W.ANESPRE ---
General Info Date of Service Date Performed: 05/29/24 Height: 5 ft 11 in Weight: 121.8 kg Body Mass Index (BMI): 37.4 Surgical Procedure: Operation Date: 05/29/24 12:55 Proposed Procedure Side Surgeon p Knee Arthroscopy Partial Medial Meniscectomy Left Aurelio Ya MD Actual Procedure Side Surgeon p Knee Arthroscopy Partial Medial Meniscectomy Left Aurelio Ya MD Pre-Op Diagnosis Post-Op Diagnosis (1) Tear of medial meniscus of left knee: (1) Tear of medial meniscus of left knee: Meds Allergies and Home Medications Allergies Allergy/AdvReac Type Severity Reaction Status Date / Time bupropion Allergy Anaphylaxsi Verified 05/29/24 10:56 s Home Medication Medication Instructions Recorded omeprazole 20 mg capsule,delayed 20 mg PO DAILY #90 caps 03/13/24 release Current Visit Medications: Current Medications Generic Name Dose Route Start Last Admin Trade Name Freq PRN Reason Stop Dose Admin Acetaminophen 1,000 mg 05/29/24 06:00 05/29/24 11:04 Acetaminophen 500 Mg Tab PO 05/29/24 16:00 1,000 mg PREOP JASE Administration Celecoxib 400 mg 05/29/24 06:00 05/29/24 11:04 Celecoxib 200 Mg Cap PO 05/29/24 16:00 400 mg PREOP JASE Administration Ringer's Solution 1,000 mls @ 80 mls/hr 05/29/24 06:00 05/29/24 11:15 IV 06/27/24 23:59 80 mls/hr INFUSION JASE Administration Cefazolin Sodium/Dextrose 2 gm in 50 mls @ 100 mls/hr 05/29/24 06:00 05/29/24 12:24 Ancef Duplex IVPB 05/29/24 16:00 Infused PREOP JASE Infusion Tranexamic Acid/Sodium Chloride 1,000 mg in 100 mls @ 600 mls/hr 05/29/24 06:00 05/29/24 12:32 IVPB 05/29/24 16:00 Infused PREOP JASE Infusion IV Miscellaneous Supplies 1 each 05/29/24 06:00 Iv Access IV 06/27/24 23:59 DIRECTED JASE Sodium Chloride 0 ml 05/29/24 06:00 Normal Saline Flush 10 Ml Syr IV 06/27/24 23:59 PRN PRN Sodium Chloride 0 ml 05/29/24 06:00 Normal Saline 10 Ml Vial IJ 06/27/24 23:59 DIRECTED PRN Sterile Water 0 ml 05/29/24 06:00 Water,Injection,Sterile 10 Ml Vial IJ 06/27/24 23:59 DIRECTED PRN PFSH Active Problems Active Problems: Problem Status Onset Code Tear of medial meniscus of left knee S83.242A Post-polypectomy bleeding Renal insufficiency N28.9 Elevated TSH R79.89 HTN (hypertension) I10 Edema R60.9 Tubular adenoma of rectum ~09/28/18 D12.8 Personal history of colonic polyps Z86.010 Rosacea 10/17/16 L71.9 Obstructive sleep apnea syndrome G47.33 Obesity E66.9 Nevus, non-neoplastic I78.1 Gastroesophageal reflux disease K21.9 Family history of colon cancer in father 06/20/18 Z80.0 Arthritis of facet joint of lumbar spine 06/29/18 M46.96 Medical History Medical History Smoker quit 3 years ago. History of smoking Quit 10 years ago. Adenomatous colon polyp (08/18/09) Obesity Rosacea Arthritis of facet joint of lumbar spine Surgical History Surgical History History of appendectomy H/O colonoscopy (~02/2024) dr villalobos tubular adenoma repeat five years Tobacco Smoking/Tobacco Use Status: Former Tobacco Use Passive smoking exposure: Yes Second hand exposure: Yes Alcohol Alcohol Intake: current Alcohol intake frequency: holidays/special occasions only Substance Use Substance use: Socially Substance use type: marijuana Details: Last ETOH 05/28/24 at 1600 Vital Signs and Lab Results Lab Results Blood Type / Crossmatch: No Data to Display Complete Blood Count: No Data to Display Complete Metabolic Panel: No Data to Display Liver Function Panel: No Data to Display Coagulation Panel: No Data to Display Cardiac Panel: No Data to Display Arterial Blood Gas: No Data to Display Venous Blood Gas: No Data to Display Pancreas Panel: No Data to Display Thyroid Panel: No Data to Display Infectious Disease: No Data to Display Blood Cultures: No Data to Display Toxicology Panel: No Data to Display Anesthesia Assessment and Plan Anesthesia History Personal History: No History of Anesthesia Complications Family History: No Family History of Anesthesia Complications Exercise Tolerance Exercise Tolerance: Metabolic Equivalents>4 Pertinent Negatives Pertinent Negatives: No Symptoms of GERD Cardiac & Pulmonary Exam Cardiac Exam: Normal S1/S2 Heart Sounds Pulmonary Exam: Clear Bilateral Breath Sounds Implantable Cardiac Device Does patient have a Pacemaker or an ICD?: No Airway Exam Known Difficult Airway: No Mallampati Class: 2 Mouth Opening: Normal (> 3cm) Thyromental Distance: Greater than 3 cm Neck Range of Motion: Full ROM Neck Circumference: Thick Teeth Condition: Normal Dentition and Removable Dentures/Plates Upper (partial) ASA Classification ASA Score: ASA 2 Emergency Case?: No NPO Status NPO Status: NPO Clears >2 hours, Solids >8 hours Anesthesia Plan Resuscitation Status: Full Code Anesthesia Technique: General Anesthesia Airway Planned: LMA Monitors Used: Standard Monitors
--- NOTE | 2024-05-29 12:45 | W.PM.DSUDISC ---
Date of service: 05/29/24 Time of Service: 12:45 Discharge Plan Disposition Patient Disposition: Home Condition: Good Discharge Details Reason For Visit: L Knee Arthroscopy Attending Provider: Aurelio Ya Primary Care Provider: Elio Salas Home Meds and New Rx's Prescriptions: New acetaminophen 500 mg tablet 1,000 mg PO TID Qty: 90 0RF hydrocodone-acetaminophen 5-325 mg tablet 1 tab PO Q6H PRN (Reason: pain) Qty: 6 0RF ibuprofen 600 mg tablet 600 mg PO TID PRN (Reason: pain) Qty: 90 0RF Continued omeprazole 20 mg capsule,delayed release(DR/EC) 20 mg PO DAILY Qty: 90 3RF Discharge Instructions Stand Alone Forms: Anesthesia Discharge Inst., Steven Farrell ([facility]), [place] Knee Arthroscopy Referrals: Aurelio Ya MD [ [facility] STAFF PHYSICIAN] - 06/10/24 2:30 pm Equipment/Supplies: Partial Weight Bearing Crutches Activity:: Activity as Tolerated Remove Dressings/Wound Care:: 72 hours Shower/Bathe:: 72 hours Diet:: As Tolerated Discharge Orders Discharge Orders: Discharge Order (Routine); Ordered 05/29/24 Ordered By: Keven Clark DS: Diagnosis Discharge Diagnosis (1) Tear of medial meniscus of left knee: Status: Acute
[2024-05-29] MEDS: EPINEPHrine 10 MG/10 ML ML (12:46)
[2024-05-29] MEDS: Bupivacaine 0.5% Pres-Free 30 ML VIAL (12:47)
[2024-05-29] MEDS: HYDROcodone 5/Acetaminophen 325 TAB PO (14:38)
--- NOTE | 2024-05-29 14:58 | ROE_ITS ---
Date of service: 05/29/24 Time of Service: 12:15 Operative Note Operative Note DATE OF PROCEDURE: 05/29/24 PRE-OP DIAGNOSIS: Left Medial Meniscus Tear POST-OP DIAGNOSIS: same (Dense and restricted medial plica) PROCEDURE: Arthroscopic partial medial meniscectomy, medial plica excision -right knee SURGEON: Aurelio Ya ANESTHESIA TYPE: General LMA/ETT Refer to Anesthesia Record ESTIMATED BLOOD LOSS: 5 PATHOLOGY: none sent TOURNIQUET TIME: 0 COMPLICATIONS: None Patient was transported to: PACU Patient's condition: stable Indications: I have seen Blanco in clinic for symptoms of a meniscus tear. This was confirmed based on MRI and exam findings. Nonoperative measures were exhausted but disability and pain persisted. I discussed knee arthroscopy with meniscal intervention with the patient. I reviewed the risks of the procedure to include, but not limited to, bleeding, infection, pain, stiffness, damage to n erves or vessels, recurrence, blood clot. Despite these risks, the patient elected to proceed. Findings: A diagnostic arthroscopy was performed with the following findings: Suprapatellar Pouch: Moderate inflammatory changes, No loose bodies Medial Compartment: Complex medial meniscal tear, Intact meniscal root, grade I chondromalacia, No loose bodies, dense plica from anterior soft tissues to medial capsule. Notch: ACL and PCL were intact Lateral Compartment: Fraying of the central portion of meniscus, Intact meniscal root, No significant chondromalacia or signs of arthritis, No loose bodies Patellofemoral Compartment: Grade II chondromalacia, No apparent patellar maltracking Procedure Description: Blanco was greeted in the preoperative holding area where the correct side was identified and marked. The consent was reviewed with the patient and signed. The history and physical was updated. All questions were answered. Blanco was taken back to the operating room. The patient was placed into the supine position on the operating room table. All bony prominences were well padded. Prophylactic antibiotics in the form of Cefazolin were administered. The left leg was then prepped with Chloraprep and draped in a standard fashion with stockinette and extremity drape. A timeout to confirm correct identity, side and site, procedure, allergies, anesthesia, and medical concerns was performed. The leg was placed into a pneumatic leg sahni, [id number]. A standard lateral portal was made at the lateral border of the patella tendon in line with the inferior pole of the patella, soft spot. The skin and deep tissue was incised sharply and the blunt trochar was inserted atraumatically. A diagnostic arthroscopy was performed and the findings are listed above. The suprapatellar pouch had moderate inflammatory changes. The patellofemoral articulation showed grade II chondromalacia as well as good tracking. The lateral gutter had no loose bodies and the medial gutter had no loose bodies. There was a dense medial plica extending from the anterior soft tissues to the medial capsule which did interfere with scope manipulation. Then, the knee was brought into some valgus stress in extension to open the medial compartment. A medial portal was made, localized by a spinal needle. The portal was created with an #11 blade through skin and capsule under direct visualization avoiding any meniscal injury. A probe was then inserted into the medial compartment. The medial compartment was fully inspected. The chondral surface of the tibia showed no significant chondromalacia and the surface of the femur showed grade I chondromalacia. The medial meniscus had a complex tear with at least 2 displaced fragments at the posterior horn. There is also horizontal type tear extending towards the root but not into the root and not fully destabilizing the posterior medial meniscus. After evaluation, the meniscus was debrided down to a stable base using a series of biters and arthroscopic regine. It was probed afterwards to confirm that the tear had been removed and the meniscus was stable. The notch was then inspected which showed an intact ACL and an intact PCL. The leg was then brought into a figure of 4 position. The lateral compartment was fully inspected with the arthroscope and a probe. The chondral surface of the lateral femur showed no significant chondromalacia. The chondral surface of the lateral tibia showed no significant chondromalacia. The lateral meniscus had some fraying over the central portion but no displaced fragments. The arthroscope was brought back into the suprapatellar pouch and the leg was in full extension. The knee was thoroughly irrigated with the arthroscopic fluid on high flow and pressure. Inflow was stopped and excess fluid was removed. The wounds were closed with 4-0 Nylon. They were dressed with Xeroform, 4x4 gauze, ABD pad, Kerlix and an RAMÍREZ wrap. A cryo-cuff was applied. The patient tolerated the procedure well and was returned to the Same Day Surgery area in a stable condition suffering no known complication.
[2024-05-29] MEDS: oxyCODONE 5 MG TAB PO (15:12)
[2024-05-29] MEDS: Normal Saline Flush 10 ML SYR IV (15:13)
[2024-05-29] MEDS: Ketorolac 15 MG/ML VIAL IVP (15:13)
--- NOTE | 2024-05-29 16:08 | W.ANESPOSTOP ---
Postoperative Evaluation Date, Time and Location Date Performed: 05/29/24 Time Performed: 15:58 Patient Location: Day Surgery Unit Vital Signs Most Recent Imported Vital Signs: Most Recent Vital Signs Temp Pulse Resp BP Pulse Ox 36 C L 54 L 16 145/80 H 100 05/29/24 14:35 05/29/24 14:35 05/29/24 14:35 05/29/24 14:35 05/29/24 14:35 Pain Score Most Recent Pain Score: Most Recent Pain Score Pain Level 6 05/29/24 15:42 Assessment Mental Status: Awake (Alert & Oriented to Patient Baseline) Airway and Respiratory Function: Patent airway with normal (patient baseline) respiratory exam Cardiovascular Function: Hemodynamically Stable Hydration Status: Adequately Hydrated Nausea & Vomiting: No Nausea or Vomiting Pain: Pain is tolerable per patient (Has been treated) Peripheral Nerve Block: Patient did not receive a nerve block
== END 2024-05-29 17:10 | disposition home or self-care (01) ==
PROVIDERS: PCP Nurse Practitioner Family; Visit Provider Student in an Organized Health Care Education/Training Program
PROC: (CPT 29870; principal; 2024-05-29 12:45)
DX: E66.9 Obesity, unspecified; G47.33 Obstructive sleep apnea (adult) (pediatric); I10 Essential (primary) hypertension; Z68.37 Body mass index [BMI] 37.0-37.9, adult; M67.52 Plica syndrome, left knee; M94.262 Chondromalacia, left knee; S83.242A Other tear of medial meniscus, current injury, left knee, initial encounter; X58.XXXA Exposure to other specified factors, initial encounter
CPT/HCPCS: 29881; J0665; J0690; J1100; J1885; J2001; J2250; J2405; J2704; J3010

== ENCOUNTER 2024-09-17 01:58 | Outpatient (CLI) | payer MEDICARE, BC, SELFPAY ==
[2024-09-17 12:50] LABS: Calculated LDL 134 mg/dL (<100); Cholesterol 225 mg/dL (<200); HDL Cholesterol 34 mg/dL (40-60); Triglyceride 287 mg/dL (<150)
[2024-09-17 18:51] LABS: PSA, Screening 1.8 ng/mL (<=4.5)
== END 2024-09-17 01:59 ==
LOC: LOS 01:58
PROVIDERS: PCP Nurse Practitioner Family; Visit Provider Nurse Practitioner Family
DX: Z12.5 Encounter for screening for malignant neoplasm of prostate (principal); Z13.6 Encounter for screening for cardiovascular disorders
CPT/HCPCS: 36415; 80061; 84153

== ENCOUNTER 2024-12-17 21:37 | Emergency (ER) | payer MEDICARE, SELFPAY ==
[2024-12-17 21:38] VITALS: BP 129/88; PULSE 74; RESP 22; TEMP 36.7; O2SAT 97
--- NOTE | 2024-12-17 21:54 | W.ED.GENAD ---
Discharge Plan Disposition Patient Disposition: Home Condition: Stable Discharge Details Clinical Impression: Hematuria Primary Care Provider: Elio Salas ED Provider: Ledy Chavez Home Meds and New Rx's Prescriptions: No Action omeprazole 20 mg capsule,delayed release(DR/EC) 20 mg PO DAILY Qty: 90 3RF Discharge Instructions Instructions: Blood in Urine (Hematuria), Adult ED Additional Instructions: At this time no evidence to suggest urinary tract infection. Please follow up with urology or your primary care provider for further evaluation. Do not take aspirin. You do have a 3 mm left-sided ureteral stone which could be causing the bleeding however you also have some thickening of your bladder wall. I do still think you need to follow-up with urology. Return to the ER if you are unable to urinate, have worsening pain, lightheadedness dizziness fever or concerns. Please take Tylenol or Ibuprofen with food every 4-6 hours as needed for pain and swelling. You will be placed on the follow-up list for urology they should call you with an appointment. If you do not hear from them the next few days you may give them a call to make an appointment yourself. Referrals: Valentino Burns MD [ [facility] STAFF PHYSICIAN] - 1 week Discharge Data Discharge Date/Time-TO BE ENTERED AT DEPARTURE: 12/17/24 23:38 HPI General Mode of arrival: ambulatory. Date/Time Provider Initiated Documentation: 12/17/24 21:45. Limitations to Documentation: no limitations. Information obtained by: patient, RN notes reviewed and old records reviewed. HPI Narrative: 64-year-old male presents to the ER with a chief complaint of hematuria which began around 630 tonight. Denies any flank pain nausea vomiting. He does report that a week ago he did have some vomiting. He did take 2 Aleve prior to arrival. Denies any known trauma although he was doing some heavy lifting. He reports he does have a history of kidney stones and UTIs in the past. He is complaining of some suprapubic aching. Past medical history also includes colon polyp, he is a smoker, obesity. He denies any discharge or concern for STDs. Denies any fever or any other associated symptoms. He does not feel like his bladder is full at this time. Related Data Home Medications ?Medication ?Instructions ?Recorded ?Confirmed omeprazole 20 mg capsule,delayed 20 mg PO DAILY #90 caps 03/13/24 12/17/24 release Previous Rx's ?Medication ?Instructions ?Recorded omeprazole 20 mg capsule,delayed 20 mg PO DAILY #90 caps 03/13/24 release Allergies Allergy/AdvReac Type Severity Reaction Status Date / Time bupropion Allergy Anaphylaxsi Verified 12/17/24 21:42 s General Stated Complaint: Urinary CONOR: 3 Review of Systems Genitourinary Genitourinary: Reports as per HPI, Reports hematuria and Reports dysuria Exam Narrative Exam Narrative: Constitutional: Alert and oriented x3. Appears stated age. Normal body habitus. Head: Normocephalic, no trauma. Eyes: Pupils PERRL, Red reflex noted, EOM's intact. Eyelids symmetrical without lesions, discharge, or swelling. ENT: Bilateral TM's WNL, External ear normal to inspection, no mastoid TTP, swelling, or erythema, Nasal turbinates WNL, no nasal discharge. Normal dentition, Posterior pharynx WNL, no exudate. Chest: RRR, Normal S1, S2, distal pulses intact. Resp: Lungs clear to auscultation bilaterally, no wheezes, rales, or rhonchi. Abdomen: Soft, non-distended, Normoactive bowel sounds all 4 quads. Musculoskeletal: Normal gait, Moves all 4 extremities without difficulty. Skin: No suspicious rashes or lesions. Capillary refill less than 2 sec. Neurologic: Cranial nerves II-XII intact. Alert and oriented x 3. Motor: No deficits noted. Sensory: Intact bilaterally all 4 extremities. Hematologic/Lymphatic: No ecchymosis, no lymphadenopathy. Course Vital Signs Vital signs: Vital Signs Temperature 36.7 C 12/17/24 21:38 Pulse 74 12/17/24 21:38 Respiratory Rate 22 12/17/24 21:38 Blood Pressure 129/88 12/17/24 21:38 Pulse Oximetry 97 12/17/24 21:38 Temperature 36.7 C 12/17/24 21:38 Temperature Source Temporal Artery Scan 12/17/24 21:38 Pulse 74 12/17/24 21:38 Respiratory Rate 22 12/17/24 21:38 Blood Pressure 129/88 12/17/24 21:38 Blood Pressure Position Sitting 12/17/24 21:38 Pulse Oximetry 97 12/17/24 21:38 Oxygen Delivery Method Room Air 12/17/24 21:38 Oxygen Flow Rate 0 12/17/24 21:38 Pain Level 5 12/17/24 21:53 Medical Decision Making 64-year-old male presents to the ER with a chief complaint of hematuria which began around 630 tonight. Denies any flank pain nausea vomiting. He does report that a week ago he did have some vomiting. He did take 2 Aleve prior to arrival. Denies any known trauma although he was doing some heavy lifting. He reports he does have a history of kidney stones and UTIs in the past. He is complaining of some suprapubic aching. Past medical history also includes colon polyp, he is a smoker, obesity. He denies any discharge or concern for STDs. Denies any fever or any other associated symptoms. He does not feel like his bladder is full at this time. Urinalysis ordered. UA shows trace ketones large blood small bilirubin negative nitrites negative leukocytes greater than [address] abdomen pelvis without contrast ordered to rule out kidney stone or other etiology. CT shows a 3 mm left distal ureteral stone nonobstructive. Also some thickening of the bladder wall. Will give referral for urology to patient and follow-up with PCP. Will discuss strict return instructions and follow-up care. At this time patient has no complaints of flank pain or vomiting. Medical Records Medical records reviewed: Yes I reviewed the patient's medical records. Imaging Data Radiologic Study: Imaging: CT Scan Radiologist's impression: IMPRESSION: 1. There is a 3 mm distal left ureteral stone which does not appear to be significantly obstructive currently, with no hydronephrosis. 2. There are 2 punctate nonobstructive right renal stones. 3. The urinary bladder is largely contracted with wall thickening which may relate to its contracted status. Mild adjacent stranding. Correlate with UA for evidence of cystitis. 4. Additional nonemergent findings detailed above. Thank you for allowing us to participate in the care of your patient. Dictated and Authenticated by: Mauro Howard MD Lab Data Lab results reviewed: Yes I reviewed the patient's lab results. Labs: Laboratory Tests Range/Units 12/17/24 21:45 Urine Color (Yellow) Red Urine Clarity (Clear) Cloudy Urine pH (5-8) 5.5 Ur Specific [place] (1.005-1.025) >= 1.030 H Urine Protein (Neg-Trace) mg/dL >=300 H Urine Ketones (Negative) mg/dL Trace H Urine Blood (Negative) Large H Urine Nitrite (Negative) Negative Urine Bilirubin (Negative) Small H Urine Urobilinogen (Up to 0.2) mg/dL 0.2 Ur Leukocyte Esterase (Negative) Negative Urine RBC (0-2) HPF >50 H Urine WBC Not Applicable Ur Epithelial Cells Not Applicable Urine Crystals Not Applicable Urine Bacteria Not Applicable Urine Mucus Not Applicable Ur Culture Indicated? No Urine Glucose (Negative) mg/dL Negative Quality:SDOH Health Related Social Needs: No Data to Display PFSH All Active Problems (Updated 12/17/24 @ 23:16 by Ledy Chavez NP) Hematuria (Acute) Plica syndrome, left knee (Acute) Tear of medial meniscus of left knee (Acute) Post-polypectomy bleeding (Acute) Renal insufficiency (Chronic) Elevated TSH (Acute) HTN (hypertension) (Chronic) Edema (Acute) Not often Tubular adenoma of rectum (Acute ~09/28/18) Personal history of colonic polyps (Acute) Rosacea (Chronic 10/17/16) Obstructive sleep apnea syndrome (Chronic) Does not use CPAP Obesity (Chronic) Nevus, non-neoplastic (Chronic) Gastroesophageal reflux disease (Chronic) Non medicated Family history of colon cancer in father (Chronic 06/20/18) age 81 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 Medical History Smoker quit 3 years ago. History of smoking Quit 10 years ago. Adenomatous colon polyp (08/18/09) Obesity Rosacea Arthritis of facet joint of lumbar spine Surgical History History of appendectomy H/O colonoscopy (~02/2024) dr villalobos tubular adenoma repeat five years Family History Mother , age 72 Myeloma Father , 89 Colon cancer Alcohol abuse Sister Alcohol abuse Melanoma Substance abuse Sister Heart disease Son No problems noted. Son Substance abuse Daughter Depression Social History Smoking/Tobacco Use Status: Former Tobacco Use tobacco type: cigarettes Quit Date: 11/27/11 Tobacco: How many years used: 25 Second Hand Exposure: Yes Smoking risk assessment performed?: Yes Alcohol Intake: current Alcohol Intake frequency: holidays/special occasions only Drug use: Daily Substance use type: marijuana Caregiver/Support person: No Household members: spouse and children Housing: house Do you need help understanding health information?: Rarely Pets and animals: Yes Pets and animals: cat(s) and guinea pig(s) Sexually active: No Do you think of yourself as: straight/heterosexual Current gender identity: male What is your relationship status?: How often do you talk on the phone with friends or family?: three or more times per week How often do you get together with friends or relatives?: once per week How often do you attend protestant or sikhism services?: 1-3 times per year Do you belong to any clubs or organized social groups?: no Panel score (0-1 are the most socially isolated patients): 2 What type of physical activity do you participate in: walking and other Details: hiking, skiing,golf,kayaking Duration: 60-90 minutes/day Frequency: 1-2 times per week Penelope/Jewish: No preference Special penelope needs: No Seatbelt use: always Helmet use: Yes Helmet use: always Drive intox or ride w/intox emergency vehicle driver: No Do you feel safe at home: Yes Do you feel safe in your relationship?: Yes
--- NOTE | 2024-12-17 22:00 | DI.CT_ITS ---
Exam(s) CT ABDOMEN PELVIS WO EXAM: CT ABDOMEN PELVIS WO CLINICAL HISTORY: Hematuria,. TECHNIQUE: Imaging Protocol: Axial computed tomography images with coronal and sagittal reformatted images were created and reviewed CONTRAST MATERIAL: Intravenous: none Oral: None COMPARISON: CT CT ABDOMEN PELVIS CTA from 11/03/2021 FINDINGS: VISUALIZED LUNG BASES: There are 2 small nodules in the left lower lobe, the larger of these measurin g 4 mm and unchanged from CT scan of October 2021. Adjacent to this is a smaller 2 mm nodule. ABDOMEN: There is no ascites. LIVER: There are no obvious focal hepatic lesions evident of this noninfused study. Mild steatosis. GALLBLADDER/BILIARY: No obvious gallbladder pathology. CBD is not dilated. PANCREAS: No evidence of pancreatic mass nor dilatation of the pancreatic duct. SPLEEN: Spleen is not enlarged. No obvious intrasplenic lesions. ADRENALS: There are no significant adrenal masses. KIDNEYS:No cysts evident. No solid renal masses. No hydronephrosis nor hydroureter. However, there appears to be a small nonobstructive 2 mm calculus in the distal left ureter approximately 4 cm above the UVJ. Urinary bladder is collapsed. Urinary bladder wall appears uniformly thickened probably r elated to under distension. No obvious radiopaque calculi within the bladder.. ABDOMINAL AORTA: Abdominal aorta is not enlarged. LYMPH NODES: There is no retroperitoneal nor paraaortic adenopathy. ABDOMINAL WALL: Bilateral fat only containing inguinal hernias. GI: There is no evidence of bowel obstruction, free air, nor abscess. PELVIS: LYMPH NODES: There is no intrapelvic nor inguinal adenopathy. GI: Appendix is surgically absent.Sigmoid diverticuli without evidence of obvious acute diverticulit is URINARY BLADDER: Diffuse mural thickening related to under distension. REPRODUCTIVE: Prostate size upper normal. Seminal vesicles unremarkable. OSSEOUS: No significant osseous lesions. No fractures. IMPRESSION: 1. There is a 2-3 mm calculus in the distal left ureter a few cm above the UVJ. There is no hydronep hrosis above this level. 2. Urinary bladder is contracted. 3. Small benign-appearing nodules left lung base. RADIATION DOSE DELIVERED: 963.73mGy.cm Total DLP DATA REPOSITORY: All CT scans at this facility are submitted to the National Radiology Data Registry (NRDR) Dose Index Registry (DIR) with the [employer] (ACR). RADIATION OPTIMIZATION: All CT scans at this facility use at least one of these dose optimization te chniques: automated exposure control; mA and/or kV adjustment per patient size (includes targeted exa ms where dose is matched to clinical indication); or iterative reconstruction.
[2024-12-17 22:03] LABS: Bilirubin Small (Negative); Blood Large (Negative); Clarity Cloudy (Clear); Glucose Negative (Negative); Ketones Trace mg/dL (Negative); Leukocyte Esterase Negative (Negative); Nitrite Negative (Negative); Specific Gravity >= 1.030 (1.005-1.025); Urobilinogen 0.2 mg/dL (Up to 0.2); pH 5.5 (5-8)
[2024-12-17 22:17] LABS: C & S Indicated? No; RBC >50 HPF (0-2)
--- NOTE | 2024-12-17 23:23 | DI.VRAD_ITS ---
PROCEDURE INFORMATION: Exam: CT Abdomen And Pelvis Without Contrast Exam date and time: 12/17/2024 10:24 PM Age: 64 years old Clinical indication: Other: Hematuria TECHNIQUE: Imaging protocol: Computed tomography of the abdomen and pelvis without contrast. Radiation optimization: All CT scans at this facility use at least one of these dose optimization techniques: automated exposure control; mA and/or kV adjustment per patient size (includes targeted exams where dose is matched to clinical indication); or iterative reconstruction. COMPARISON: CT ABDOMEN PELVIS CTA 11/03/2021 5:46 AM FINDINGS: Lungs: 4 mm pulmonary nodule in the posterior left lower lobe series 2, image 49 and 2 mm juxtapleural pulmonary nodule in the lateral right lower lobe image 34, which do not require further evaluation, unchanged from 11/03/2021. Heart: Heart size normal. Esophagus: The visualized distal esophagus is largely contracted without gross abnormality. Liver: Question mild generalized hepatic steatosis with mild fatty sparing around the gallbladder fossa. Normal contour. No mass lesions. No intrahepatic biliary ductal dilatation. Gallbladder and biliary ducts: Normal. No calcified stones. No ductal dilation. Pancreas: Normal. No inflammatory changes or ductal dilation. Spleen: Normal. No splenomegaly. Adrenal glands: Normal. No adrenal mass. Kidneys and ureters: Mild bilateral chronic symmetrical perinephric stranding, nonspecific. This is unchanged and may relate to chronic perirenal scarring or edema. No hydronephrosis or hydroureter. There is a 3 mm stone in the distal left ureter about 4 cm from the UVJ. There are 2 punctate 1-2 mm nonobstructive right renal stones. Stomach and bowel: The stomach is unremarkable. The small bowel is nondilated with no gross abnormality. No acute colonic abnormalities. Mild distal colonic diverticulosis without diverticulitis. Appendix: Prior appendectomy. Intraperitoneal space: No peritoneal free fluid or air. Vasculature: No acute process. No abdominal aortic aneurysm. Mild calcific atherosclerosis. Lymph nodes: No adenopathy. Urinary bladder: The urinary bladder is largely contracted with wall thickening which may relate to its contracted status. Mild adjacent stranding. Correlate with UA for evidence of cystitis. Reproductive: Moderately enlarged prostate. Bones/joints: No acute osseous abnormalities. Moderate-severe canal stenosis L4-L5. Soft tissues: No acute soft tissue abnormalities. Small bilateral fat containing inguinal hernias with no bowel herniation or features of strangulation. IMPRESSION: 1. There is a 3 mm distal left ureteral stone which does not appear to be significantly obstructive currently, with no hydronephrosis. 2. There are 2 punctate nonobstructive right renal stones. 3. The urinary bladder is largely contracted with wall thickening which may relate to its contracted status. Mild adjacent stranding. Correlate with UA for evidence of cystitis. 4. Additional nonemergent findings detailed above. Dictated and Authenticated by: Mauro Howard MD. Ordering:XIANG Villafana MD
[2024-12-17] MEDS: Acetaminophen 500 MG TAB 1000 MG PO (23:36)
== END 2024-12-17 23:38 | disposition home or self-care (01) ==
PROVIDERS: Emergency Provider Registered Nurse Emergency; PCP Nurse Practitioner Family
DX: R31.9 Hematuria, unspecified (principal); N20.0 Calculus of kidney; I10 Essential (primary) hypertension; Z87.891 Personal history of nicotine dependence
CPT/HCPCS: 99284; 74176; 81003; 81015

== ENCOUNTER 2024-12-19 22:49 | Emergency (ER) | payer MEDICARE, SELFPAY ==
--- NOTE | 2024-12-19 00:56 | DI.RAD_ITS ---
Exam(s) XR CHEST 2V PA LATERAL EXAM: XR CHEST 2V PA LATERAL CLINICAL HISTORY: sepsis workup. TECHNIQUE: 2D digital imaging was performed. COMPARISON: CR,XR XR CHEST 2V PA LATERAL from 12/21/2023 FINDINGS: 2 views: Heart size is normal. The mediastinum is not widened. Left lung is clear. There is subtle increased markings in the right suprahilar region. No pleural e ffusions. IMPRESSION: Mild increased markings right upper lobe, possibly infiltrate. Appropriate follow-up recommended. DATA REPOSITORY: RADIATION DOSE DELIVERED:
[2024-12-19 22:59] VITALS: PULSE 131; RESP 20; TEMP 38.1; O2SAT 94
--- NOTE | 2024-12-19 23:00 | RT.EKG_ITS ---
APPROVED REPORT Exam: Resting ECG Reason for Exam: fast pulse Patient Location: E HR:127 bpm ECG Measurements Heart Rate 127 AXIS TX 158 P 25 QRSd 88 QRS -68 QT 301 T 61 QTc 438 Conclusion Sinus tachycardia...rate> [address] segment or T wave abnormalities to suggest occlusive MT
[2024-12-19 23:03] VITALS: BP 169/90; PULSE 131; RESP 20; TEMP 38.1; O2SAT 94
--- NOTE | 2024-12-19 23:22 | W.ED.GENAD ---
Discharge Plan Disposition Patient Disposition: Transfer-Acute Inpatient Care Specific Acute Inpt Facility: [facility] Condition: Serious Discharge Details Clinical Impression: Sepsis, Nephrolithiasis Primary Care Provider: Elio Salas ED Provider: Jojo Alvarez Home Meds and New Rx's Prescriptions: No Action omeprazole 20 mg capsule,delayed release(DR/EC) 20 mg PO DAILY Qty: 90 3RF HPI General Mode of arrival: ambulatory. Date/Time Provider Initiated Documentation: 12/19/24 22:51. Limitations to Documentation: no limitations. Information obtained by: patient and old records reviewed. HPI Narrative: 64yo M with kidney stone diagnosed 2 days prior presenting with fever, chills, nausea, and malaise which started today. Some burning with urination and hematuria. Sick contacts at work with COVID. He also has rhinorhea and mild sore throat. No cough or difficutly breathing. Flank pain last night but not currently. Otherwise in his usual state of health with no rash, chest pain, shortness of breath, abdominal pain, or other concerns. Related Data Home Medications ?Medication ?Instructions ?Recorded ?Confirmed omeprazole 20 mg capsule,delayed 20 mg PO DAILY #90 caps 03/13/24 12/19/24 release Previous Rx's ?Medication ?Instructions ?Recorded omeprazole 20 mg capsule,delayed 20 mg PO DAILY #90 caps 03/13/24 release Allergies Allergy/AdvReac Type Severity Reaction Status Date / Time bupropion Allergy Anaphylaxsi Verified 12/19/24 23:02 s General Stated Complaint: Nausea/Vomit/Diar CONOR: 3 Review of Systems Narrative: see HPI Exam Narrative Exam Narrative: General: Alert Head: Normocephalic, atraumatic Neck: Trachea midline, ?Neck supple. ENT: ?MMM.? N Cardiac: ?Tachycardiac, regular, no murmurs appreciated Resp: No respiratory distress. CTAB. Abd: ?Soft, non-distended, nontender : ?No suprapubic tenderness. No CVA tenderness. Extremities: ?No deformities.? No peripheral edema. Neurologic: GCS 15. ? Moves all extremities freely against gravity Course Vital Signs Vital signs: Vital Signs Temperature 38.1 C H 12/19/24 22:59 Pulse 131 H 12/19/24 22:59 Respiratory Rate 20 12/19/24 22:59 Pulse Oximetry 94 12/19/24 22:59 Temperature 38.1 C H 12/19/24 23:03 Temperature Source Temporal Artery Scan 12/19/24 23:03 Pulse 131 H 12/19/24 23:03 Respiratory Rate 20 12/19/24 23:03 Blood Pressure 169/90 H 12/19/24 23:03 Blood Pressure Position Sitting 12/19/24 23:03 Pulse Oximetry 94 12/19/24 23:03 Oxygen Delivery Method Room Air 12/19/24 23:03 Oxygen Flow Rate 0 12/19/24 22:59 Pain Level 6 12/19/24 23:03 Lab/Test Results Lab/Test Results: 12/19/24 23:06 Blood Blood Culture - Pending 12/19/24 23:06 Blood Blood Culture - Pending Medical Decision Making 64yo M with kidney stone diagnosed 2 days prior presenting with fever, chills, nausea, and malaise which started today. Febrile and tachycardiac on arrival. Will treat empirically for sepsis with IVFB, broad spectrum antibiotics while awaiting results of workup (though suspect urinary source/infected stone most likely). Blood cultures sent. EKG sinus tachycardia. Labs reviewed as below, CBC with leukocytosis to 12, CMP with newly elevated Cr at 2.4, lactate elevated at 2.4. UA infected. On reassessment HR improved to 70's. Pt needs urology intervention for infected stone. Repeat lactate normalized. [facility] and associated facilities at capacity. [facility] and associated facilitates at capacity. [facility] at capacity. Discussed with [facility] urology Dr. Diaz, pt accepted ED to ED. Transport arranged for 0700 this morning. Overnight pt maintained on mIVF. Reports feeling much better. HR improved to 90's, normotensive. Will get repeat dose of zosyn at 0600 as well as tylenol. Awaiting transport via [facility]. Lab Data Lab results reviewed: Yes I reviewed the patient's lab results. Labs: 12/19/24 23:51 Urine - Reflex from Ua Urine Culture - Pending 12/19/24 23:49 Blood Blood Culture - Pending 12/19/24 23:38 Blood Blood Culture - Pending Laboratory Tests Range/Units 12/19/24 12/19/24 12/20/24 23:38 23:51 23:59 WBC (4.4-10.8) 10^3/uL 12.12 H RBC (4.36-5.78) 10^6/uL 5.69 Hgb (13.5-17.5) g/dL 16.6 Hct (40.0-50.0) % 49.2 MCV (80-95) fL 87 MCH (27.0-33.0) pg 29.2 MCHC (32.0-36.0) % 33.7 RDW (11.8-14.1) % 13.5 Plt Count (130-400) 10^3/uL 140 MPV (8.0-11.0) fL 10.1 Immature Gran % % 0.4 Neutrophils % % 94.5 Lymphocytes % % 1.8 Monocytes % % 3.1 Eosinophils % % 0.1 Basophils % % 0.1 Nucleated RBC % (0.0-0.3) % 0.0 Absolute Neutrophils (1.2-6.7) 10^3/uL 11.45 H Absolute Lymphocytes (1.2-3.4) 10^3/uL 0.22 L Absolute Monocytes (0.1-0.8) 10^3/uL 0.38 Absolute Eosinophils (0.0-0.7) 10^3/uL 0.01 Absolute Basophils (0.0-0.2) 10^3/uL 0.01 VBG Lactate (<or=2.0) mmol/L 2.4 H* Sodium (136-145) mmol/L 141 Potassium (3.5-5.1) mmol/L 3.6 Chloride (98-107) mmol/L 105 Carbon Dioxide (21.0-32.0) mmol/L 22.9 Anion Gap (3-11) mmol/L 13.1 H BUN (7-18) mg/dL 24 H Creatinine (0.70-1.30) mg/dL 2.4 H Est GFR (CKD-EPI 2020) (mL/min/1.73m2) 29.03 Glucose (74-106) mg/dL 153 H Calcium (8.5-10.1) mg/dL 8.2 L Total Bilirubin (0.2-1.0) mg/dL 0.76 AST (15-37) U/L 29 ALT (16-63) U/L 36 Alkaline Phosphatase (46-116) U/L 91 Total Protein (6.4-8.2) g/dL 7.0 Albumin (3.4-5.0) g/dL 4.1 Urine Color (Yellow) Yellow Urine Clarity (Clear) Clear Urine pH (5-8) 5.5 Ur Specific [place] (1.005-1.025) >= 1.030 H Urine Protein (Neg-Trace) mg/dL 30 H Urine Ketones (Negative) mg/dL Negative Urine Blood (Negative) Large H Urine Nitrite (Negative) Negative Urine Bilirubin (Negative) Negative Urine Urobilinogen (Up to 0.2) mg/dL 0.2 Ur Leukocyte Esterase (Negative) Small H Urine RBC (0-2) HPF 20-50 H Cancelled Urine WBC (0-5) HPF 10-20 H Cancelled Ur Epithelial Cells (Negative) HPF Few Cancelled Urine Crystals (Negative) HPF Moderate Amorphous Cancelled Urine Bacteria (Negative) HPF Moderate Cancelled Urine Casts (Negative) LPF Negative Cancelled Urine Mucus (Negative) Negative Cancelled Urine Other Cancelled Ur Culture Indicated? Yes Cancelled Urine Glucose (Negative) mg/dL Negative Quality:SDOH Health Related Social Needs: No Data to Display PFSH All Active Problems (Updated 12/20/24 @ 01:48 by Jojo Alvarez MD) Nephrolithiasis (Chronic) Sepsis (Acute) Hematuria (Acute) Plica syndrome, left knee (Acute) Tear of medial meniscus of left knee (Acute) Post-polypectomy bleeding (Acute) Renal insufficiency (Chronic) Elevated TSH (Acute) HTN (hypertension) (Chronic) Edema (Acute) Not often Tubular adenoma of rectum (Acute ~09/28/18) Personal history of colonic polyps (Acute) Rosacea (Chronic 10/17/16) Obstructive sleep apnea syndrome (Chronic) Does not use CPAP Obesity (Chronic) Nevus, non-neoplastic (Chronic) Gastroesophageal reflux disease (Chronic) Non medicated Family history of colon cancer in father (Chronic 06/20/18) age 81 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 Medical History Smoker quit 3 years ago. History of smoking Quit 10 years ago. Adenomatous colon polyp (08/18/09) Obesity Rosacea Arthritis of facet joint of lumbar spine Surgical History History of appendectomy H/O colonoscopy (~02/2024) dr villalobos tubular adenoma repeat five years Family History Mother , age 72 Myeloma Father , 89 Colon cancer Alcohol abuse Sister Alcohol abuse Melanoma Substance abuse Sister Heart disease Son No problems noted. Son Substance abuse Daughter Depression Social History Smoking/Tobacco Use Status: Former Tobacco Use tobacco type: cigarettes Quit Date: 11/27/11 Tobacco: How many years used: 25 Second Hand Exposure: Yes Smoking risk assessment performed?: Yes Alcohol Intake: current Alcohol Intake frequency: holidays/special occasions only Drug use: Occasionally Substance use type: marijuana Caregiver/Support person: No Household members: spouse and children Housing: house Do you need help understanding health information?: Rarely Pets and animals: Yes Pets and animals: cat(s) and guinea pig(s) Sexually active: No Do you think of yourself as: straight/heterosexual Current gender identity: male What is your relationship status?: How often do you talk on the phone with friends or family?: three or more times per week How often do you get together with friends or relatives?: once per week How often do you attend roman catholic or zoroastrianism services?: 1-3 times per year Do you belong to any clubs or organized social groups?: no Panel score (0-1 are the most socially isolated patients): 2 What type of physical activity do you participate in: walking and other Details: hiking, skiing,golf,kayaking Duration: 60-90 minutes/day Frequency: 1-2 times per week Penelope/Hinduism: No preference Special penelope needs: No Seatbelt use: always Helmet use: Yes Helmet use: always Drive intox or ride w/intox delivery driver/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
[2024-12-19 23:46] VITALS: PULSE 121; RESP 22; O2SAT 91
[2024-12-19 23:47] LABS: Abs Immature Grans 0.05 10^3/uL (0.0-0.06); Absolute Basophil Count 0.01 10^3/uL (0.0-0.2); Absolute Eosinophil Count 0.01 10^3/uL (0.0-0.7); Absolute Lymphocyte Count 0.22 10^3/uL (1.2-3.4); Absolute Monocyte Count 0.38 10^3/uL (0.1-0.8); Absolute Neutrophil Count 11.45 10^3/uL (1.2-6.7); Basophils % 0.1 %; Eosinophils % 0.1 %; HCT 49.2 % (40.0-50.0); HGB 16.6 g/dL (13.5-17.5); Immature Grans % 0.4 %; Lactate 2.4 mmol/L (<or=2.0); Lymphocytes % 1.8 %; MCH 29.2 pg (27.0-33.0); MCHC 33.7 % (32.0-36.0); MCV 87 fL (80-95); MPV 10.1 fL (8.0-11.0); Monocytes % 3.1 %; Neutrophils % 94.5 %; Platelet Count 140 10^3/uL (130-400); RBC 5.69 10^6/uL (4.36-5.78); RDW 13.5 % (11.8-14.1); RDW-SD 42.3 fL; WBC 12.12 10^3/uL (4.4-10.8)
[2024-12-19] MEDS: PIPERACILLIN/TAZO 4.5 GM in Normal Saline 100 ML IVPB (23:54)
[2024-12-19] MEDS: Acetaminophen 500 MG TAB 1000 MG PO (23:55)
[2024-12-19 23:56] LABS: Bilirubin Negative (Negative); Blood Large (Negative); Clarity Clear (Clear); Glucose Negative (Negative); Ketones Negative (Negative); Leukocyte Esterase Small (Negative); Nitrite Negative (Negative); Specific Gravity >= 1.030 (1.005-1.025); Urobilinogen 0.2 mg/dL (Up to 0.2); pH 5.5 (5-8)
[2024-12-19] MEDS: Normal Saline 1,000 ML 1000 ML IV (23:56)
[2024-12-19 23:59] LABS: Bacteria Moderate HPF (Negative); Epithelial Cells Few HPF (Negative); RBC 20-50 HPF (0-2)
[2024-12-20] VITALS (150 sets, daily range): BP systolic 107–136; BP diastolic 55–81; PULSE 65–128; RESP 8–29; TEMP 36.6; O2SAT 90–96
[2024-12-20] LABS: C & S Indicated? Yes; Casts Negative LPF (Negative); Crystals Moderate Amorphous HPF (Negative); Mucus Negative (Negative)
[2024-12-20 00:02] LABS: ALT 36 U/L (16-63); AST 29 U/L (15-37); Albumin 4.1 g/dL (3.4-5.0); Alkaline Phosphatase 91 U/L (46-116); Anion Gap 13.1 mmol/L (3-11); BUN 24 mg/dL (7-18); Bilirubin, Total 0.76 mg/dL (0.2-1.0); CO2 22.9 mmol/L (21.0-32.0); CREATININE 2.4 mg/dL (0.70-1.30); Calcium 8.2 mg/dL (8.5-10.1); Chloride 105 mmol/L (98-107); Estimated GFR 29.03 (mL/min/1.73m2); Glucose 153 mg/dL (74-106); Potassium 3.6 mmol/L (3.5-5.1); Sodium 141 mmol/L (136-145)
[2024-12-20] MEDS: LINEZOLID 600 MG/300 ML BAG 300 MG IVPB (00:15)
[2024-12-20] MEDS: Normal Saline 1,000 ML 1000 ML IV (00:38)
--- NOTE | 2024-12-20 01:35 | DI.VRAD_ITS ---
PROCEDURE INFORMATION: Exam: XR Chest Exam date and time: 12/20/2024 12:54 AM Age: 64 years old Clinical indication: Fever and other: Sepsis workup TECHNIQUE: Imaging protocol: Radiologic exam of the chest. Views: 2 views. COMPARISON: CR XR CHEST 2V PA LATERAL 12/21/2023 7:29 PM FINDINGS: Lungs: No focal consolidation seen. Pleural spaces: No large pleural effusion seen. Heart/Mediastinum: No cardiomegaly. Bones/joints: No acute abnormality. Gastrointestinal tract: Gaseous distension of bowel loops in the visualized abdomen. IMPRESSION: No acute findings to explain reported symptoms. Dictated and Authenticated by: Nidhi Bran MD. Ordering:JERRY Uribe MD
[2024-12-20 01:57] LABS: Lactate 1.7 mmol/L (<or=2.0)
[2024-12-20] MEDS: Ketorolac 15 MG/ML VIAL IVP (04:37)
[2024-12-20] MEDS: Normal Saline 1,000 ML 150 ML IV (04:38)
[2024-12-20] MEDS: Acetaminophen 500 MG TAB 1000 MG PO (05:38)
[2024-12-20] MEDS: PIPERACILLIN/TAZO 3.375 GM in Normal Saline 50 ML IVPB (05:39)
== END 2024-12-20 07:12 | disposition short-term general hospital (02) ==
PROVIDERS: Emergency Provider Student in an Organized Health Care Education/Training Program; PCP Nurse Practitioner Family
DX: N20.0 Calculus of kidney (principal); A41.9 Sepsis, unspecified organism
CPT/HCPCS: 80053; 87040; 87077; 87426; 93005; 96365; 96366; 96367; 96375; 99285; 71046; 81003; 81015; 83605; 85025; 87086; 87186; 93010; J1885; J2020; J2543

== ENCOUNTER → 2024-12-25 11:29 | Outpatient (BNVA) | payer MEDICARE, SELFPAY | PROVIDERS: PCP Nurse Practitioner Family; Referring Provider Nurse Practitioner Family; Visit Provider Nurse Practitioner Gerontology | DX: N20.0 Calculus of kidney (principal) | CPT/HCPCS: 99215 ==

== ENCOUNTER 2025-01-06 07:23 | Day surgery (SDC) | payer MEDICARE, SELFPAY ==
[2025-01-06] VITALS (29 sets, daily range): BP systolic 85–148; BP diastolic 50–84; PULSE 56–86; RESP 13–20; TEMP 35.7–36.5; O2SAT 90–100; BMI 37.4
--- NOTE | 2025-01-06 07:48 | ANES.PREOP_ITS ---
General Info Date of Service Date Performed: 01/06/25 Height: 5 ft 11 in Weight: 121.8 kg Body Mass Index (BMI): 37.4 Surgical Procedure: Operation Date: 01/06/25 09:10 Proposed Procedure Side Surgeon p Cystoscopy/Laser/Retrograde/Ureteroscopy/Stent Removal Left Valentino Burns MD Meds Allergies and Home Medications Allergies Allergy/AdvReac Type Severity Reaction Status Date / Time bupropion Allergy Anaphylaxsi Verified 01/06/25 07:31 s Home Medication ?Medication ?Instructions ?Recorded omeprazole 20 mg capsule,delayed 20 mg PO DAILY #90 caps 03/13/24 release ciprofloxacin HCl 500 mg tablet 500 mg PO BID 12/25/24 tamsulosin 0.4 mg capsule (Flomax) 0.4 mg PO DAILY 12/25/24 Current Visit Medications: Current Medications Generic Name Dose Route Start Last Admin Trade Name Freq PRN Reason Stop Dose Admin Cefazolin Sodium/Dextrose 2 gm in 50 mls @ 100 mls/hr 01/06/25 06:00 Ancef Duplex IVPB 01/06/25 23:59 PREOP JASE Ringer's Solution 1,000 mls @ 80 mls/hr 01/06/25 06:15 IV 02/05/25 06:14 INFUSION JASE IV Miscellaneous Supplies 1 each 01/06/25 06:00 Iv Access IV 01/06/25 23:59 DIRECTED JASE Sodium Chloride 0 ml 01/06/25 06:00 Normal Saline Flush 10 Ml Syr IV 01/06/25 23:59 PRN PRN Sodium Chloride 0 ml 01/06/25 06:00 Normal Saline 10 Ml Vial IJ 01/06/25 23:59 DIRECTED PRN Sterile Water 0 ml 01/06/25 06:00 Water,Injection,Sterile 10 Ml Vial IJ 01/06/25 23:59 DIRECTED PRN PFSH Active Problems Active Problems: Problem Status Onset Code Nephrolithiasis Chronic N20.0 Sepsis Acute A41.9 Hematuria Acute R31.9 Plica syndrome, left knee Acute M67.52 Tear of medial meniscus of left knee Acute S83.242A Post-polypectomy bleeding Acute Renal insufficiency Chronic N28.9 Elevated TSH Acute R79.89 HTN (hypertension) Chronic I10 Edema Acute R60.9 Tubular adenoma of rectum Acute ~18 D12.8 Personal history of colonic polyps Acute Z86.010 Rosacea Chronic 10/17/16 L71.9 Obstructive sleep apnea syndrome Chronic G47.33 Obesity Chronic E66.9 Nevus, non-neoplastic Chronic I78.1 Gastroesophageal reflux disease Chronic K21.9 Family history of colon cancer in father Chronic 06/20/18 Z80.0 Arthritis of facet joint of lumbar spine Chronic 06/29/18 M46.96 Medical History Medical History Smoker quit 3 years ago. History of smoking Quit 10 years ago. Adenomatous colon polyp (08/18/09) Obesity Rosacea Arthritis of facet joint of lumbar spine Surgical History Surgical History History of appendectomy H/O colonoscopy (~02/2024) dr villalobos tubular adenoma repeat five years Tobacco Smoking/Tobacco Use Status: Former Tobacco Use Passive smoking exposure: Yes Second hand exposure: Yes Alcohol Alcohol Intake: current Alcohol intake frequency: holidays/special occasions only Substance Use Substance use: Occasionally Substance use type: marijuana Details: Last use: 01/05/25 Vital Signs and Lab Results Vital Signs Most Recent Vital Signs in EMR: Most Recent Vital Signs Temp Pulse Resp BP Pulse Ox 36.5 C 81 16 142/81 H 97 01/06/25 07:35 01/06/25 07:35 01/06/25 07:35 01/06/25 07:35 01/06/25 07:35 Lab Results Blood Type / Crossmatch: No Data to Display Complete Blood Count: White Blood Count 12.12 10^3/uL (4.4-10.8) H 12/19/24 23:38 Red Blood Count 5.69 10^6/uL (4.36-5.78) 12/19/24 23:38 Hemoglobin 16.6 g/dL (13.5-17.5) 12/19/24 23:38 Hematocrit 49.2 % (40.0-50.0) 12/19/24 23:38 Platelet Count 140 10^3/uL (130-400) 12/19/24 23:38 Venous Blood Lactate 1.7 mmol/L (<or=2.0) 12/20/24 01:52 Complete Metabolic Panel: Sodium 141 mmol/L (136-145) 12/19/24 23:38 Potassium 3.6 mmol/L (3.5-5.1) 12/19/24 23:38 Chloride 105 mmol/L (98-107) 12/19/24 23:38 Carbon Dioxide 22.9 mmol/L (21.0-32.0) 12/19/24 23:38 BUN 24 mg/dL (7-18) H 12/19/24 23:38 Creatinine 2.4 mg/dL (0.70-1.30) H 12/19/24 23:38 Est GFR (CKD-EPI 2020) 29.03 (mL/min/1.73m2) 12/19/24 23:38 Calcium 8.2 mg/dL (8.5-10.1) L 12/19/24 23:38 Albumin 4.1 g/dL (3.4-5.0) 12/19/24 23:38 Glucose 153 mg/dL (74-106) H 12/19/24 23:38 Liver Function Panel: Alanine Aminotransferase (ALT/SGPT) 36 U/L (16-63) 12/19/24 23: 38 Aspartate Amino Transf (AST/SGOT) 29 U/L (15-37) 12/19/24 23:38 Coagulation Panel: No Data to Display Cardiac Panel: No Data to Display Arterial Blood Gas: No Data to Display Venous Blood Gas: No Data to Display Pancreas Panel: No Data to Display Thyroid Panel: No Data to Display Infectious Disease: No Data to Display Blood Cultures: No Data to Display Toxicology Panel: No Data to Display Anesthesia Assessment and Plan Anesthesia History Personal History: No History of Anesthesia Complications Family History: No Family History of Anesthesia Complications Exercise Tolerance Exercise Tolerance: Metabolic Equivalents>4 Pertinent Negatives Pertinent Negatives: No Symptoms of GERD Cardiac & Pulmonary Exam Cardiac Exam: Normal S1/S2 Heart Sounds Pulmonary Exam: Clear Bilateral Breath Sounds Implantable Cardiac Device Does patient have a Pacemaker or an ICD?: No Airway Exam Known Difficult Airway: No Mallampati Class: 2 Mouth Opening: Normal (> 3cm) Thyromental Distance: Greater than 3 cm Neck Range of Motion: Full ROM Neck Circumference: Thick Teeth Condition: Normal Dentition and Removable Dentures/Plates Upper (partial) ASA Classification ASA Score: ASA 2 Emergency Case?: No NPO Status NPO Status: NPO Clears >2 hours, Solids >8 hours Anesthesia Plan Resuscitation Status: Full Code Anesthesia Technique: General Anesthesia Airway Planned: LMA Monitors Used: Standard Monitors
[2025-01-06] MEDS: Lactated Ringers 1,000 ML 80 ML IV (08:01)
--- NOTE | 2025-01-06 08:22 | HPE_ITS ---
Date of service: 01/06/25 Time of Service: 08:57 Assessment and Plan Assessment and plan (1) Left ureteral stone: Status: Acute Assessment and plan: Now that the ureter has been dilated with the presence of a stent, we should be able to access his ureteral stone. We will plan cystoscopy with stent removal and retrograde pyelogram. We will prefer formal left ureteroscopy and address the stone. History of Present Illness History of Present Illness Chief Complaint: Left ureteral stone Narrative: This is a 64-year-old gentleman who presented to our emergency department with left renal colic. He was found to have a 3 mm distal ureteral stone that was going to be treated conservatively. He returned a few days later with fevers chills and sepsis. I was not available at the time so he was transferred to another facility where he underwent stent placement and antibiotic therapy. His infection has now cleared and he presents for ureteroscopy to address his ureteral stone. He has had a previous calcium based stone that he passed spontaneously. Review of Systems Narrative: No fevers or chills No vision change or dysphasia No diabetes or thyroid Sleep apnea. No cough or hemoptysis No chest pain or palpitations No nausea, vomiting, hepatitis, ulcers, jaundice, diarrhea or constipation No seizures, strokes or peripheral neuropathy No bleeding disorders or anemia Arthralgia. No gout PFSH All Active Problems (Updated 01/06/25 @ 08:24 by Valentino Burns MD) Left ureteral stone (Acute) Nephrolithiasis (Chronic) Sepsis (Acute) Hematuria (Acute) Plica syndrome, left knee (Acute) Tear of medial meniscus of left knee (Acute) Post-polypectomy bleeding (Acute) Renal insufficiency (Chronic) Elevated TSH (Acute) HTN (hypertension) (Chronic) Edema (Acute) Not often Tubular adenoma of rectum (Acute ~09/28/18) Personal history of colonic polyps (Acute) Rosacea (Chronic 10/17/16) Obstructive sleep apnea syndrome (Chronic) Does not use CPAP Obesity (Chronic) Nevus, non-neoplastic (Chronic) Gastroesophageal reflux disease (Chronic) Non medicated Family history of colon cancer in father (Chronic 06/20/18) age 81 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 Medical History Smoker quit 3 years ago. History of smoking Quit 10 years ago. Adenomatous colon polyp (08/18/09) Obesity Rosacea Arthritis of facet joint of lumbar spine Surgical History History of appendectomy H/O colonoscopy (~02/2024) dr villalobos tubular adenoma repeat five years Family History Mother , age 72 Myeloma Father , 89 Colon cancer Alcohol abuse Sister Alcohol abuse Melanoma Substance abuse Sister Heart disease Son No problems noted. Son Substance abuse Daughter Depression Social History Smoking/Tobacco Use Status: Former Tobacco Use tobacco type: cigarettes Quit Date: 11/27/11 Tobacco: How many years used: 25 Second Hand Exposure: Yes Smoking risk assessment performed?: Yes Alcohol Intake: current Alcohol Intake frequency: holidays/special occasions only Drug use: Occasionally Substance use type: marijuana Details: Last use: 01/05/25 Caregiver/Support person: No Household members: spouse and children Housing: house Do you need help understanding health information?: Rarely Pets and animals: Yes Pets and animals: cat(s) and guinea pig(s) Sexually active: No Do you think of yourself as: straight/heterosexual Current gender identity: male What is your relationship status?: How often do you talk on the phone with friends or family?: three or more times per week How often do you get together with friends or relatives?: once per week How often do you attend buddhist or presybeterian services?: 1-3 times per year Do you belong to any clubs or organized social groups?: no Panel score (0-1 are the most socially isolated patients): 2 What type of physical activity do you participate in: walking and other Details: hiking, skiing,golf,kayaking Duration: 60-90 minutes/day Frequency: 1-2 times per week Penelope/Confucianist: No preference Special penelope needs: No Seatbelt use: always Helmet use: Yes Helmet use: always Drive intox or ride w/intox gas truck driver: No Do you feel safe at home: Yes Do you feel safe in your relationship?: Yes Meds Allergies and Home Medications Allergies Allergy/AdvReac Type Severity Reaction Status Date / Time bupropion Allergy Anaphylaxsi Verified 01/06/25 07:31 s Home Medications ?Medication ?Instructions ?Recorded ?Confirmed ?Type omeprazole 20 mg capsule,delayed 20 mg PO DAILY #90 caps 03/13/24 01/06/25 Rx release ciprofloxacin HCl 500 mg tablet 500 mg PO BID 12/25/24 01/06/25 History tamsulosin 0.4 mg capsule (Flomax) 0.4 mg PO DAILY 12/25/24 01/06/25 History Exam Const General: cooperative Neck Neck: supple Resp Effort & Inspection: normal respiratory effort Auscultation: clear to auscultation bilaterally Cardio Rate: regular rate Rhythm: regular rhythm GI Inspection: normal to inspection and obesity Palpation: soft Neuro General: patient alert, patient awake and patient oriented x3 Results Last Vital Signs Temp 36.5 C 01/06/25 07:35 Pulse 81 01/06/25 07:35 Resp 16 01/06/25 07:35 BP 142/81 H 01/06/25 07:35 Pulse Ox 97 01/06/25 07:35 Time Spent Time spent with Patient: <40 minutes Time was spent: other
[2025-01-06] MEDS: ceFAZolin 2 GM/50 ML BAG IVPB (09:07)
[2025-01-06] MEDS: Lidocaine 2% Jelly 11 ML SYR (09:38)
[2025-01-06] MEDS: Omnipaque 300 MG/ML 50 ML BTL (09:39)
--- NOTE | 2025-01-06 10:01 | W.PM.DSUDISC ---
Date of service: 01/06/25 Discharge Plan Disposition Patient Disposition: Home Discharge Details Reason For Visit: ureteroscopy and stone removal Attending Provider: Valentino Burns Primary Care Provider: Elio Salas Home Meds and New Rx's Prescriptions: No Action tamsulosin [Flomax] 0.4 mg capsule 0.4 mg PO DAILY ciprofloxacin HCl 500 mg tablet 500 mg PO BID omeprazole 20 mg capsule,delayed release(DR/EC) 20 mg PO DAILY Qty: 90 3RF Discharge Instructions Additional Instructions: followup 6 to 8 weeks with renal US prior to visit no need to strain urine Activity:: Activity as Tolerated Shower/Bathe:: 24 hours Diet:: As Tolerated Discharge Orders Discharge Orders: Discharge Order (Routine); Ordered 01/06/25 Ordered By: Valentino Burns DS: Diagnosis Discharge Diagnosis (1) Left ureteral stone: Status: Acute
--- NOTE | 2025-01-06 10:06 | DI.RAD_ITS ---
Exam(s) XR RETROGRADE IN OR EXAM: XR RETROGRADE IN OR CLINICAL HISTORY: LEFT URETERAL STONE. TECHNIQUE: 2D digital imaging was performed. COMPARISON: No exams were available for comparison FINDINGS: Fluoroscopy was provided during retrograde urologic procedure left-side. See procedure report for de tails. Total fluoroscopy time 32 seconds IMPRESSION: Radiation exposure index/cumulative dose:maxx Elliott= 13.65 mGy DATA REPOSITORY: RADIATION DOSE DELIVERED:
--- NOTE | 2025-01-06 10:06 | ROE_ITS ---
Operative Note Operative Note PRE-OP DIAGNOSIS: Left ureteral stone POST-OP DIAGNOSIS: same PROCEDURE: cystoscopy, remove left ureteral stent, left retrograde pyelogram, left semirigid and flexible ureteroscopy with stone extraction SURGEON: Valentino Burns ANESTHESIA TYPE: Local By Surgeon and General LMA/ETT Refer to Anesthesia Record ESTIMATED BLOOD LOSS: 5 PATHOLOGY: other (stone for chemical analysis) COMPLICATIONS: None Patient was transported to: PACU Patient's condition: stable Implants: none Indications: This is a 64-year-old gentleman who presented to the emergency department with a left ureteral stone. He was initially treated conservatively, but then he returned with fevers and chills. He had findings consistent with urosepsis, so a ureteral stent was placed emergently and he was given antibiotics. Now that his infection is cleared, he presents for stent removal and ureteroscopy to address his ureteral stone Findings: stone migrated back up to lower pole calyx Procedure Description: The patient was given preoperative IV antibiotics and brought to the operating room on 01/06/2025. After successful induction of general anesthesia, he was placed in the dorsal lithotomy position. His genitalia was prepped and draped. 2% Xylocaine jelly was instilled into the urethra. A 22 [place]ian rigid cystoscope was passed through the urethra into the bladder. The urethra and bladder were inspected with the 30 degree lens. The pendulous, bulbar membranous urethra's appeared normal with no strictures. The prostatic urethra showed lateral lobe enlargement but no significant median lobe. A stent could be seen protruding from the left ureteral orifice. The stent was grasped with alligator forceps and brought to the level of the urethral meatus. I was unable to pass a wire through the lumen of the stent due to stone encrustation. The stent was then removed in its entirety. I passed a 5 Bel[place]ian access catheter through the cystoscope and positioned the catheter just within the left ureteral orifice. Retrograde pyelogram was obtained by injecting Omnipaque through the access catheter under fluoroscopic guidance. I did not see a specific filling defect at the previous level of the stone (in the distal ureter) I then passed a guidewire through the lumen of the access catheter and removed the cystoscope. I passed a semirigid ureteroscope through the urethra into the bladder. I maneuvered the scope up to the pelvic brim and verified no stones were present. I then passed a dual-lumen catheter over the wire and positioned a second wire. We chose one of the wires as a working wire and the other as a safety wire. I passed my flexible ureteroscope over the working wire leaving the safety wire in place. I then inspected the upper ureter and each of the calyces. I found the previously identified stone in the lower pole calyx. I was able to grasp the stone and a 0 tip stone basket and remove it in its entirety. The stone was then sent to pathology for chemical analysis. I passed a ureteral access catheter back over the safety wire and performed a second retrograde pyelogram. No extravasation of contrast was identified, so I elected not to place a ureteral stent. The patient tolerated the procedure well with no complications. He was taken to the recovery room in stable condition. Date of Procedure: 01/06/25
--- NOTE | 2025-01-06 11:04 | W.ANESPOSTOP ---
Postoperative Evaluation Date, Time and Location Date Performed: 01/06/25 Time Performed: 10:42 Patient Location: PACU Vital Signs Most Recent Imported Vital Signs: Most Recent Vital Signs Temp Pulse Resp BP Pulse Ox 36.1 C L 59 L 16 126/72 97 01/06/25 10:46 01/06/25 10:50 01/06/25 10:50 01/06/25 10:50 01/06/25 10:50 Pain Score Most Recent Pain Score: Most Recent Pain Score Pain Level 0 01/06/25 10:46 Assessment Mental Status: Arousable with meaningful communication Airway and Respiratory Function: Patent airway with normal (patient baseline) respiratory exam Cardiovascular Function: Hemodynamically Stable Hydration Status: Adequately Hydrated Nausea & Vomiting: No Nausea or Vomiting Pain: Pain is tolerable per patient Peripheral Nerve Block: Patient did not receive a nerve block
[2025-01-06] MEDS: traMADol 50 MG TAB PO (11:06)
[2025-01-06] MEDS: Phenazopyridine 200 MG TAB PO (11:06)
[2025-01-06] MEDS: oxyCODONE 5 MG TAB PO (12:06)
[2025-01-11 14:10] LABS: Interpretation 100% Uric acid.; Source: Left Ureter
== END 2025-01-06 13:58 | disposition home or self-care (01) ==
PROVIDERS: PCP Nurse Practitioner Family; Visit Provider Urology
PROC: (CPT 52352; principal; 2025-01-06 09:00)
DX: N20.1 Calculus of ureter (principal); I10 Essential (primary) hypertension; K21.9 Gastro-esophageal reflux disease without esophagitis; E66.9 Obesity, unspecified; Z68.37 Body mass index [BMI] 37.0-37.9, adult
CPT/HCPCS: 52352; 74420; 82365; J0690; J1100; J1885; J2250; J2405; J2704; Q9967

== ENCOUNTER 2025-04-28 02:57 | Outpatient (CLI) | payer MEDICARE, SELFPAY ==
--- NOTE | 2025-04-28 06:45 | DI.US_ITS ---
Exam(s) US RENAL EXAM: US RENAL CLINICAL HISTORY: ? hydronephrosis after ureteroscopy,lt ureteral stone,n20.1. TECHNIQUE: Saavedra scale, color and spectral Doppler were used. COMPARISON: CT CT ABDOMEN PELVIS WO from 12/17/2024 XA XR RETROGRADE IN OR from 01/06/2025 FINDINGS: Renal size in cm: Right: 10.8. Left: 12.1. Echogenicity: Normal. Hydronephrosis: No. Cyst or mass: No. Nephrolithiasis: No. Other findings: None. Bladder:Normal. Ureteral jets: Right: Visualized and unremarkable. Left: Visualized and unremarkable. Prevoid vol:109 cc Postvoid vol:5 cc Prostate: 36 cc Renal color flow: Symmetric and within normal limits. IMPRESSION: 1. There is no evidence of hydronephrosis. 2. Enlarged prostate gland. DATA REPOSITORY:
== END 2025-04-28 03:17 ==
LOC: DI 02:57
PROVIDERS: PCP Nurse Practitioner Family; Visit Provider Urology
DX: N20.1 Calculus of ureter (principal); N40.1 Benign prostatic hyperplasia with lower urinary tract symptoms
CPT/HCPCS: 76770

== ENCOUNTER 2025-04-29 08:06 | Emergency (ER) | payer MEDICARE, SELFPAY ==
[2025-04-29] VITALS (33 sets, daily range): BP systolic 122–148; BP diastolic 59–72; PULSE 73–102; RESP 10–27; TEMP 37.1–38.6; O2SAT 93–98
--- NOTE | 2025-04-29 09:00 | RT.EKG_ITS ---
APPROVED REPORT Exam: Resting ECG Reason for Exam: check qt Patient Location: E HR:92 bpm ECG Measurements Heart Rate 92 AXIS MO 162 P 43 QRSd 98 QRS -46 QT 341 T 36 QTc 422 Conclusion Sinus rhythm. 92 NORMAL AXIS NO STEMI NORMAL QTC
[2025-04-29 09:01] LABS: Bilirubin Negative (Negative); Blood Moderate (Negative); Clarity Clear (Clear); Glucose Negative (Negative); Ketones 15 mg/dL (Negative); Leukocyte Esterase Moderate (Negative); Nitrite Positive (Negative); Specific Gravity 1.025 (1.005-1.025); Urobilinogen 0.2 mg/dL (Up to 0.2); pH 5.5 (5-8)
[2025-04-29 09:13] LABS: C & S Indicated? Yes; WBC >50 HPF (0-5)
[2025-04-29] MEDS: Acetaminophen 325 MG TAB 650 MG PO (09:35)
[2025-04-29 10:48] LABS: Lactate 0.8 mmol/L (<or=2.0)
[2025-04-29 10:50] LABS: Abs Immature Grans 0.13 10^3/uL (0.0-0.06); Absolute Basophil Count 0.04 10^3/uL (0.0-0.2); Basophils % 0.2 %; HCT 43.9 % (40.0-50.0); HGB 14.6 g/dL (13.5-17.5); Immature Grans % 0.7 %; Lymphocytes % 3.9 %; MCH 28.7 pg (27.0-33.0); MCHC 33.3 % (32.0-36.0); MCV 86 fL (80-95); MPV 10.2 fL (8.0-11.0); Monocytes % 8.1 %; Neutrophils % 87.1 %; Platelet Count 123 10^3/uL (130-400); RBC 5.09 10^6/uL (4.36-5.78); RDW 13.9 % (11.8-14.1); RDW-SD 43.7 fL; WBC 18.86 10^3/uL (4.4-10.8)
[2025-04-29 10:52] LABS: Absolute Lymphocyte Count 0.74 10^3/uL (1.2-3.4); Absolute Monocyte Count 1.53 10^3/uL (0.1-0.8); Absolute Neutrophil Count 16.43 10^3/uL (1.2-6.7)
[2025-04-29 11:00] LABS: Diff Comment Diff Reviewed; RBC Morphology Normal
--- NOTE | 2025-04-29 11:05 | DI.CT_ITS ---
Exam(s) CT ABDOMEN PELVIS WO EXAM: CT ABDOMEN PELVIS WO CLINICAL HISTORY: flank pain, fever, dysuria. TECHNIQUE: Imaging Protocol: Axial computed tomography images with coronal and sagittal reformatted images were created and reviewed CONTRAST MATERIAL: Intravenous: none Oral: None COMPARISON: CT CT ABDOMEN PELVIS WO from 12/17/2024 FINDINGS: VISUALIZED LUNG BASES: No nodules nor pleural effusions evident. ABDOMEN: There is no ascites. LIVER: There are no obvious focal hepatic lesions evident of this noninfused study. GALLBLADDER/BILIARY: No obvious gallbladder pathology. CBD is not dilated. PANCREAS: No evidence of pancreatic mass nor dilatation of the pancreatic duct. SPLEEN: Spleen is not enlarged. No obvious intrasplenic lesions. ADRENALS: There are no significant adrenal masses. KIDNEYS:Left kidney unremarkable. There are 3 punctate nonobstructive calculi in the right kidney. There are no calculi in the nondistended right ureter. No calculi seen in the urinary bladder. Blad rylee wall is uniformly thickened and with some mild perivesicular streaking. ABDOMINAL AORTA: Abdominal aorta is not enlarged. LYMPH NODES: There is no retroperitoneal nor paraaortic adenopathy. ABDOMINAL WALL: No evidence of significant anterior abdominal wall nor inguinal hernia. GI: There is no evidence of bowel obstruction, free air, nor abscess. PELVIS: LYMPH NODES: There is no intrapelvic nor inguinal adenopathy. GI: No evidence of appendicitis.No evidence of sigmoid diverticulitis. URINARY BLADDER: There is some thickening of the urinary bladder and perivesicular streaking. The pe lvic ureters are not dilated. There are no calculi at the ureterovesical junctions. REPRODUCTIVE: Mildly enlarged prostate gland. OSSEOUS: No significant osseous lesions. IMPRESSION: 1. There are 3 punctate nonobstructive calculi in the right kidney. No hydronephrosis nor hydrourete r. No calculi seen in the opposite-left kidney. 2. There is diffuse uniform thickening of the urinary bladder and some mild perivesicular streaking. Correlation with any clinical signs of cystitis recommended. There are no radiopaque calculi seen i n the urinary bladder. Report called by myself to ER provider 04/29/2025 at 11:27 a.m. RADIATION DOSE DELIVERED: 850.6mGy.cm Total DLP DATA REPOSITORY: All CT scans at this facility are submitted to the National Radiology Data Registry (NRDR) Dose Index Registry (DIR) with the [employer] (ACR). RADIATION OPTIMIZATION: All CT scans at this facility use at least one of these dose optimization te chniques: automated exposure control; mA and/or kV adjustment per patient size (includes targeted exa ms where dose is matched to clinical indication); or iterative reconstruction.
[2025-04-29 11:11] LABS: ALT 24 U/L (16-63); AST 22 U/L (15-37); Albumin 3.5 g/dL (3.4-5.0); Alkaline Phosphatase 83 U/L (46-116); Anion Gap 9.3 mmol/L (3-11); BUN 18 mg/dL (7-18); Bilirubin, Total 2.1 mg/dL (0.2-1.0); CO2 23.7 mmol/L (21.0-32.0); CREATININE 1.4 mg/dL (0.70-1.30); Calcium 8.1 mg/dL (8.5-10.1); Chloride 104 mmol/L (98-107); Estimated GFR 55.09 (mL/min/1.73m2); Glucose 110 mg/dL (74-106); Potassium 3.6 mmol/L (3.5-5.1); Sodium 137 mmol/L (136-145); Total Protein 6.9 g/dL (6.4-8.2)
[2025-04-29] MEDS: Normal Saline 1,000 ML 1000 ML IV (11:21)
[2025-04-29] MEDS: CIPROFLOXACIN 400 MG/200 ML BAG 200 MG IVPB (11:22)
--- NOTE | 2025-04-29 15:36 | ED.GENADUL_ITS ---
Discharge Plan Disposition Patient Disposition: Home Condition: Stable Discharge Details Clinical Impression: Acute UTI Primary Care Provider: Elio Salas ED Provider: Avelina Strickland Home Meds and New Rx's Prescriptions: New ciprofloxacin HCl [Cipro] 500 mg tablet 500 mg PO BID Qty: 20 0RF Continued albuterol sulfate 90 mcg/actuation HFA aerosol inhaler 2 inh inhalation .Q4-6 hrs PRN (Reason: shortness of breath or wheezing) Qty: 8.5 4RF (DME) BreatheRite MDI Spacer Spacer See Rx Instructions .ROUTE .MEDSUPPLY Qty: 1 0RF Rx Instructions: As directed omeprazole 20 mg capsule,delayed release(DR/EC) 20 mg PO DAILY Qty: 90 3RF Discharge Instructions Instructions: Urinary Tract Infection, Adult ED Additional Instructions: Take the antibiotic as prescribed until completed Follow-up with Dr. Burns at your scheduled appointment If you become nauseous or unable to take the antibiotic please return immediately for reassessment as you do have a urinary tract infection Take Tylenol as needed for fever control When your urine culture comes back we will call if you need to change her antibiotic Please return earlier should you have new or worsening complaints Recommendation for recheck with PCP in 24 to 48 hours Referrals: Elio Salas, NEUROSURGICAL PHYSICIAN ASSISTANT [Primary Care Provider] - 1 day HPI General Date/Time Provider Initiated Documentation: 04/29/25 08:38 . HPI Narrative: 65-year-old male with hematuria, dysuria, and bilateral flank pain. Reports fatigue today. Had kidney ultrasound yesterday due to previous ureterolithiasis requiring stent placement in 12/2024. Appointment with urology on the . Current pain distinct from previous stone episode. Alert, oriented, ambulatory. No chest pain, shortness of breath, nausea, vomiting, abdominal or flank tenderness. [place] well since completing antibiotics. Related Data Home Medications ?Medication ?Instructions ?Recorded ?Confirmed omeprazole 20 mg capsule,delayed 20 mg PO DAILY #90 caps 03/13/24 04/29/25 release albuterol sulfate 90 mcg/actuation 2 inh inhalation .Q4-6 hrs PRN 04/09/25 04/29/25 aerosol inhaler shortness of breath or wheezing #8.5 grams inhalational spacing device #1 ea 04/09/25 04/29/25 (BreatheRite MDI Spacer) ciprofloxacin HCl 500 mg tablet 500 mg PO BID #20 tabs 04/29/25 (Cipro) Previous Rx's ?Medication ?Instructions ?Recorded omeprazole 20 mg capsule,delayed 20 mg PO DAILY #90 caps 03/13/24 release albuterol sulfate 90 mcg/actuation 2 inh inhalation .Q4-6 hrs PRN 04/09/25 aerosol inhaler shortness of breath or wheezing #8.5 grams inhalational spacing device #1 ea 04/09/25 (BreatheRite MDI Spacer) ciprofloxacin HCl 500 mg tablet 500 mg PO BID #20 tabs 04/29/25 (Cipro) Allergies Allergy/AdvReac Type Severity Reaction Status Date / Time bupropion Allergy Anaphylaxsi Verified 04/29/25 08:37 s General Stated Complaint: Urinary CONOR: 3 Exam Narrative Exam Narrative: General Appearance: Alert, oriented, not in acute distress. Vital signs: Within normal limits. HEENT: Within normal limits. Respiratory: Within normal limits. Gastrointestinal: No abdominal or flank tenderness. Skin: Warm and dry, no rash. Neurological: Normal. Course Vital Signs Vital signs: Vital Signs Temperature 37.1 C 04/29/25 08:28 Pulse 102 H 04/29/25 08:28 Respiratory Rate 18 04/29/25 08:28 Blood Pressure 122/67 04/29/25 08:28 Pulse Oximetry 95 04/29/25 08:28 Temperature 37.9 C H 04/29/25 10:25 Temperature Source Oral 04/29/25 10:25 Pulse 77 04/29/25 12:41 Pulse 77 04/29/25 12:41 Respiratory Rate 18 04/29/25 12:41 Respiratory Effort Normal, Non-Labored 04/29/25 09:40 Respiratory Depth Normal 04/29/25 09:40 Respiratory Pattern Normal 04/29/25 09:40 Blood Pressure 148/64 H 04/29/25 12:31 Blood Pressure Mean 91 04/29/25 12:31 Blood Pressure Position Sitting 04/29/25 09:40 Pulse Oximetry 98 04/29/25 12:41 Oxygen Delivery Method Room Air 04/29/25 09:40 Oxygen Flow Rate 0 04/29/25 09:40 Pain Level 6 04/29/25 08:36 Lab/Test Results Lab/Test Results: 04/29/25 10:45 Blood Blood Culture - Pending 04/29/25 09:18 Blood Blood Culture - Pending 04/29/25 08:50 Urine - Reflex from Ua Urine Culture - Pending Laboratory Tests Range/Units 04/29/25 04/29/25 08:50 10:45 WBC (4.4-10.8) 10^3/uL 18.86 H RBC (4.36-5.78) 10^6/uL 5.09 Hgb (13.5-17.5) g/dL 14.6 Hct (40.0-50.0) % 43.9 MCV (80-95) fL 86 MCH (27.0-33.0) pg 28.7 MCHC (32.0-36.0) % 33.3 RDW (11.8-14.1) % 13.9 Plt Count (130-400) 10^3/uL 123 L MPV (8.0-11.0) fL 10.2 Immature Gran % % 0.7 Neutrophils % % 87.1 Lymphocytes % % 3.9 Monocytes % % 8.1 Eosinophils % % 0.0 Basophils % % 0.2 Nucleated RBC % (0.0-0.3) % 0.0 Absolute Neutrophils (1.2-6.7) 10^3/uL 16.43 H Absolute Lymphocytes (1.2-3.4) 10^3/uL 0.74 L Absolute Monocytes (0.1-0.8) 10^3/uL 1.53 H Absolute Eosinophils (0.0-0.7) 10^3/uL 0.00 Absolute Basophils (0.0-0.2) 10^3/uL 0.04 RBC Morphology Normal VBG Lactate (<or=2.0) mmol/L 0.8 Sodium (136-145) mmol/L 137 Potassium (3.5-5.1) mmol/L 3.6 Chloride (98-107) mmol/L 104 Carbon Dioxide (21.0-32.0) mmol/L 23.7 Anion Gap (3-11) mmol/L 9.3 BUN (7-18) mg/dL 18 Creatinine (0.70-1.30) mg/dL 1.4 H Est GFR (CKD-EPI 2020) (mL/min/1.73m2) 55.09 Glucose (74-106) mg/dL 110 H Calcium (8.5-10.1) mg/dL 8.1 L Total Bilirubin (0.2-1.0) mg/dL 2.1 H AST (15-37) U/L 22 ALT (16-63) U/L 24 Alkaline Phosphatase (46-116) U/L 83 Total Protein (6.4-8.2) g/dL 6.9 Albumin (3.4-5.0) g/dL 3.5 Urine Color (Yellow) Yellow Urine Clarity (Clear) Clear Urine pH (5-8) 5.5 Ur Specific [place] (1.005-1.025) 1.025 Urine Protein (Neg-Trace) mg/dL 30 H Urine Ketones (Negative) mg/dL 15 H Urine Blood (Negative) Moderate H Urine Nitrite (Negative) Positive H Urine Bilirubin (Negative) Negative Urine Urobilinogen (Up to 0.2) mg/dL 0.2 Ur Leukocyte Esterase (Negative) Moderate H Urine RBC Not Applicable Urine WBC (0-5) HPF >50 H Ur Epithelial Cells Not Applicable Urine Crystals Not Applicable Urine Bacteria Not Applicable Urine Mucus Not Applicable Ur Culture Indicated? Yes Urine Glucose (Negative) mg/dL Negative Medical Decision Making WBC count 18,000. Mildly elevated bilirubin. Creatinine improved to 1.4, similar to baseline. Urinalysis shows >50 WBCs indicating infection. EKG: QTc not prolonged. Initial Assessment: 65-year-old male with hematuria, dysuria, bilateral flank pain, and fatigue. No chest pain or shortness of breath. Recent kidney ultrasound due to prior ureterolithiasis requiring stent placement in December. [place] fine since completing antibiotics. Alert, oriented, and ambulatory. No acute distress or abdominal/flank tenderness. Urinalysis shows infection. White count 18,000. Mildly elevated bilirubin. Creatinine improved to 1.4, at baseline. Urinalysis sent for culture, >50 WBCs. Prior notes indicate Enterococcus faecalis. EKG: QTc not prolonged. ED Course: - Reviewed prior notes. - Performed EKG: QTc not prolonged. - Initiated Cipro. - Case reviewed with Dr. Burns. - Appointment scheduled with urology on the . - Encouraged recheck by primary care physician in 24 to 48 hours. - Discussed admission; patient prefers home. - Patient tolerates oral intake. - Advised to return if nausea, vomiting, unable to take antibiotic, or symptoms persist for reassessment and potential admission. - Discharged home in stable condition with stable vitals. Final Assessment: Reviewed prior notes and performed EKG. Initiated Cipro. Case reviewed with Dr. Burns. Scheduled follow-up with urology. Patient prefers home and tolerates oral intake. Advised to return if symptoms persist. Discharged in stable condition. Clinical Impression: - Hematuria with dysuria and bilateral flank pain. - Fatigue. Disposition: - Discharge: Patient discharged home in stable condition. - Follow-Up: Appointment with urology on the . Recheck by primary care physician in 24 to 48 hours. MDM Components Evaluation: - Number of Differential Diagnoses or Management Options: Hematuria with dysuria and bilateral flank pain, fatigue. - Amount and Complexity of Data Reviewed: Reviewed prior notes, performed EKG, urinalysis sent for culture. - Risk of Complication and Morbidity or Mortality: Risk of infection complications, potential need for admission if symptoms persist. Quality:[facility] Health Related Social Needs: No Data to Display PFSH All Active Problems (Updated 04/29/25 @ 12:31 by MITCHELL Santos) Acute UTI (Acute) Left ureteral stone (Acute) Plica syndrome, left knee (Acute) Tear of medial meniscus of left knee (Acute) Post-polypectomy bleeding (Acute) Renal insufficiency (Chronic) Elevated TSH (Acute) HTN (hypertension) (Chronic) Edema (Acute) Not often Tubular adenoma of rectum (Acute ~09/28/18) Personal history of colonic polyps (Acute) Rosacea (Chronic 10/17/16) Obstructive sleep apnea syndrome (Chronic) Does not use CPAP Obesity (Chronic) Nevus, non-neoplastic (Chronic) Gastroesophageal reflux disease (Chronic) Non medicated Family history of colon cancer in father (Chronic 06/20/18) age 81 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 Medical History Smoker quit 3 years ago. History of smoking Quit 10 years ago. Adenomatous colon polyp (08/18/09) Obesity Rosacea Arthritis of facet joint of lumbar spine Surgical History History of appendectomy H/O colonoscopy (~02/2024) dr villalobos tubular adenoma repeat five years Family History Mother , age 72 Myeloma Father , 89 Colon cancer Alcohol abuse Sister Alcohol abuse Melanoma Substance abuse Sister Heart disease Son No problems noted. Son Substance abuse Daughter Depression Social History Smoking/Tobacco Use Status: Former Tobacco Use tobacco type: cigarettes Quit Date: 11/27/11 Tobacco: How many years used: 25 Second Hand Exposure: Yes Smoking risk assessment performed?: Yes Alcohol Intake: current Alcohol Intake frequency: holidays/special occasions only Drug use: Occasionally Substance use type: marijuana Details: Last use: 01/05/25 Caregiver/Support person: No Household members: spouse and children Housing: house Do you need help understanding health information?: Rarely Pets and animals: Yes Pets and animals: cat(s) and guinea pig(s) Sexually active: No Do you think of yourself as: straight/heterosexual Current gender identity: male What is your relationship status?: How often do you talk on the phone with friends or family?: three or more times per week How often do you get together with friends or relatives?: once per week How often do you attend anabaptist or mu-ism services?: 1-3 times per year Do you belong to any clubs or organized social groups?: no Panel score (0-1 are the most socially isolated patients): 2 What type of physical activity do you participate in: walking and other Details: hiking, skiing,golf,kayaking Duration: 60-90 minutes/day Frequency: 1-2 times per week Penelope/Nondenominational: No preference Special penelope needs: No Seatbelt use: always Helmet use: Yes Helmet use: always Drive intox or ride w/intox p d driver: No Do you feel safe at home: Yes Do you feel safe in your relationship?: Yes
== END 2025-04-29 12:50 | disposition home or self-care (01) ==
PROVIDERS: Emergency Provider Physician Assistant; PCP Nurse Practitioner Family
DX: N39.0 Urinary tract infection, site not specified (principal); N20.0 Calculus of kidney; I10 Essential (primary) hypertension; Z87.891 Personal history of nicotine dependence
CPT/HCPCS: 36415; 80053; 87040; 87077; 93005; 96365; 99284; 74176; 81003; 81015; 83605; 85025; 87086; 87186; 93010; J0744

== ENCOUNTER → 2025-05-09 15:31 | Outpatient (BNVA) | payer MEDICARE, SELFPAY | PROVIDERS: PCP Nurse Practitioner Family; Referring Provider Nurse Practitioner Family; Visit Provider Urology | DX: N20.1 Calculus of ureter (principal) | CPT/HCPCS: 99213 ==

== ENCOUNTER 2025-06-11 01:57 | Outpatient (CLI) | payer MEDICARE, SELFPAY ==
--- NOTE | 2025-06-11 14:20 | DI.US_ITS ---
APPROVED REPORT EXAM: Comprehensive 2D, Doppler, and color-flow Echocardiogram Patient Location: Out-Patient Fine Grade Bulldozer Operator: Brenda Kim RDCS (AE) Indications: Bilateral lower extremity edema Other Information Study Quality: Adequate Conclusion Normal left ventricular wall thickness and chamber size. Ejection fraction is 60%. Wall motion is normal Normal right ventricular size and function Both atria are normal in size There is no structural or hemodynamically significant valvular disease Estimated right ventricular systolic pressure is normal at 22 mmHg Wall motion Left Ventricle The left ventricle is normal size. The left ventricular systolic function is normal. The left ventricular ejection fraction is within the normal range. There is normal left ventricular wall thickness. There is normal LV segmental wall motion. There is no ventricular septal defect visualized. LVEF is 59%. Right Ventricle The right ventricle is normal size. The right ventricular systolic function is normal. Atria The left atrium size is normal. The right atrium size is normal. The interatrial septum is intact with no evidence for an atrial septal defect. Aortic Valve The aortic valve is normal in structure. Aortic valve is trileaflet. There is no aortic valvular stenosis. Trace aortic regurgitation. Mitral Valve The mitral valve is normal in structure. No evidence of mitral valve stenosis. Trace mitral regurgitation. Tricuspid Valve The tricuspid valve is normal in structure. There is no tricuspid valve stenosis. Trace tricuspid regurgitation. The RVSP is 22.3 mmHg. Pulmonic Valve The pulmonary valve is normal in structure. There is no pulmonic valvular stenosis. Trace pulmonic regurgitation. Great Vessels The aortic root is normal in size. The ascending aorta is normal in size. Aortic arch is not well visualized. IVC is normal in size and collapses >50% with inspiration. Pericardium There is no pericardial effusion. 2D Dimensions IVSD d PLAX 0.90 cm M: 0.6-1.2 Ao Root d 3.37 cm M: 3.1 - 3.7 LVPW d PLAX 0.90 cm M: 0.6 - 1.2 Ao Asc Diam d 3.30 cm M: 2.6 - 3.4 LVID d PLAX 4.42 cm M: 4.2 - 5.8 LVDs 3.05 cm M: 2.5 - 4.0 LV EF Teichholz 58.7 % FS 30.90 % LV EDV (Teich) 88.7 mL LV ESV (Teich) 36.6 mL M-Mode TAPSE 2.19 cm (M/F) >1.7 Auto EF LV EDV A4C 100.6 mL LV EDV A2C 138.8 mL LV EDV BP 118.3 mL LV ESV A4C 40.8 mL LV ESV A2C 60.4 mL LV ESV BP 49.7 mL LVEF(%) A4C 59.4 % LVEF(%) A2C 56.5 % LVEF(%) BP 58.0 % LV SV A4C 59.8 ml LV SV A2C 78.4 ml LV SV BP 68.6 ml LV CO A4C 4.6 L/min LV CO A2C 4.9 L/min LV CO BP 4.7 L/min HR A4C 76.44 BPM HR A2C 62.50 BPM LV EDV Index (BP) LA Volume LA Length A4C 5.2 cm LA Length A2C 4.7 cm LA Area A4C s 16.58 cm2 LA Area A2C s 15.86 cm2 LA Vol A4C A-L 45.17 mL LA Vol A2C A-L 44.99 mL LA Vol Biplane A-L 47.0 mL LA Vol/BSA A4C A-L LA Vol/BSA A2C A-L LA Vol/BSA BP A-L 19.7 mL/m2 LA Vol A4C MOD 41.6 mL LA Vol A2C MOD 42.8 mL LA Vol BP MOD 43.6 mL RA Volume RA Area A4C 9.9 cm2 RA ESV A4C (A-L) 20.1mL RA Vol/BSA A4C A-L RA Length A4C 4.2 cm RA ESV A4C (MOD) 19.4mL LV Diastology MV E' medial 0.089 (>0.07 m/s) MV E Vmax 0.71 (0.4-1.3 m/s) MV E/E' MED 7.99 (<14) MV A Vmax 0.80 (0.4-1.3 m/s) MV E' lateral 0.152 (>0.1 m/s) E/A Ratio 0.9 MV E/E' LAT 4.69 (<14) MV E' Average 0.121 m/s MV E/E'(average) 5.91 Aortic Valve AoV Vmax 1.52 m/s LVOT Vmax 1.26 m/s AoV Peak Grad 9.3 mmHg LVOT Peak Grad 6.4 mmHg AoV Area (Vmax) 2.53 cm2 LVOT VTI 0.241 m AoV VTI 0.304 m LVOT Mean Grad 3.6 mmHg AoV Mean Be. 1.04 m/s LVOT SV 73.58 mL AoV Mean Grad 4.9 mmHg LVOT Diam s 1.95 cm AoV Area (VTI) 2.42 cm2 AV Regurg Peak Gr. 9.30 mmHg Velocity Ratio 0.83 Mitral Valve MV DT 241 (160-240 msec) MV Vmax TIPS 0.77 m/s MV Mean Grad 1.4 (<2mmHg) MV VTI 0.234 m Pulmonary Valve PV Vmax 1.50 (0.5-1.5 m/s) RVOT Vmax 0.89 m/s PV Peak Grad 9.0 mmHg RVOT Peak Gr. 3.1 mmHg PV Mean Be 0.90 m/s RVOT VTI 0.166 m PV Mean Grad 3.9 mmHg RVOT Mean Gr. 1.6 mmHg Tricuspid Valve RA Pressure 3.00 mmHg TR Vmax 2.20 m/s TV S' 0.15 m/s TR Peak Grad 19.3 mmHg RVSP (TR) 22.3 mmHg
== END 2025-06-11 02:17 ==
LOC: DI 01:57
PROVIDERS: PCP Nurse Practitioner Family; Visit Provider Internal Medicine Cardiovascular Disease
DX: R60.0 Localized edema (principal)
CPT/HCPCS: 93306

== ENCOUNTER → 2025-08-01 13:58 | Outpatient (BNVA) | payer MEDICARE, SELFPAY | PROVIDERS: PCP Nurse Practitioner Family; Referring Provider Nurse Practitioner Family; Visit Provider Urology | DX: N20.1 Calculus of ureter (principal) | CPT/HCPCS: 99213; 81002 ==

== ENCOUNTER → 2025-08-12 14:01 | Outpatient (BNVA) | payer MEDICARE, SELFPAY | PROVIDERS: PCP Nurse Practitioner Family; Referring Provider Nurse Practitioner Family; Visit Provider Surgery | DX: R60.0 Localized edema (principal) | CPT/HCPCS: 93922 ==

== ENCOUNTER 2025-09-10 10:54 | Outpatient (CLI) | payer MEDICARE, SELFPAY ==
--- NOTE | 2025-09-10 14:33 | DI.US_ITS ---
Exam(s) US EXTREMITY VENOUS BI EXAM: US EXTREMITY VENOUS BI CLINICAL HISTORY: R/O DVT, BILAT LOWER EXT EDEMA R60.0. TECHNIQUE: Bilateral lower extremity venous ultrasound performed using grayscale, color-flow, and spectral Doppler analysis. COMPARISON: No exams were available for comparison FINDINGS: The right common femoral, femoral and popliteal veins demonstrate normal compressibility, augmentation, and color Doppler. The posterior tibial and peroneal veins are patent. The saphenofemoral junction is unremarkable. There is no evidence of a Watts's cyst. The soft tissues are unremarkable. The left common femoral, femoral and popliteal veins demonstrate normal compressibility, augmentation, and color Doppler. The posterior tibial and peroneal veins are patent. The saphenofemoral junction is unremarkable. There is no evidence of a Watts's cyst. The soft tissues are unremarkable. IMPRESSION: 1. No evidence of a right lower extremity DVT. 2. No evidence of a left lower extremity DVT. DATA REPOSITORY:
== END 2025-09-10 11:14 ==
LOC: DI 10:55
PROVIDERS: PCP Nurse Practitioner Family; Visit Provider Nurse Practitioner Family
DX: R60.0 Localized edema (principal)
CPT/HCPCS: 93970